=== PATIENT | female | born 1995 | race African-American/Black ===

== ENCOUNTER 2020-04-13 12:10 | Outpatient (CLI) | payer MEDICAID, SELFPAY ==
[2020-04-13 12:27] VITALS: BP 135/77; PULSE 93; TEMP 37.1
[2020-04-13 12:37] VITALS: BMI 42.4
[2020-04-13 13:16] LABS: ROM Internal Control Test YES-OK TO RESULT pt. (Internal QC); ROM Patient Test Negative (Negative)
--- NOTE | 2020-04-13 13:34 | US_ITS ---
STUDY: SECOND AND THIRD TRIMESTER OBSTETRICAL ULTRASOUND - LIMITED REASON FOR EXAM: Female, 24 years old LLQ PAIN LMP: 09/22/2019. PRIOR ULTRASOUND: None. TECHNIQUE: Transabdominal TECHNICAL QUALITY: Adequate. FINDINGS: There is a single intrauterine fetus. The fetus is in a transverse lie with the head on the maternal right side. There is demonstrated cardiac activity with a heart rate of 142 bpm. There is a normal amniotic fluid volume. The largest amniotic fluid pocket measures 4.8 cm. The amniotic fluid index (JARED) is 11.9 cm. The placenta is fundal in location. There are Grade 1 placental changes. The cervix measures 5 cm in length. BIOMETRY: BPD: 7.4 cm: 29 weeks, 4 days HC: 27.4 cm: 30 weeks, 0 days AC: 24.9 cm: 29 weeks, 1 days FL: 6 cm: 31 weeks, 3 days Age by LMP: 29 weeks, 1 days. ERICA by LMP: 06/28/2020. age by current US: 30 weeks, 1 days. ERICA by current US: 06/21/2020. Estimated weight: 1487 grams, +/- 217 grams, 68 percentile. US/OB Limited With Biometrics IMPRESSION: Single live uterine gestation with a mean gestational age of 30 weeks and 1 day. Electronically Signed: Rogerio Fragoso, at 15:04 EST , Service support ,
[2020-04-13 13:59] LABS: Hematocrit 36.7 % (37-47); Hemoglobin 12.4 g/dL (12.0-15.0); Mean Corp Hgb Conc 33.8 g/dL (32-36); Mean Corpuscular Volume 79.8 fL (81-99); Mean Platelet Vol. 10.6 fl (6.2-12.0); Platelet Count 295 K/mm3 (150-450); RBC Distribution Width CV 13.6 % (11.6-14.6); RBC Distribution Width SD 38.7 fl (35.1-43.9); White Blood Count 10.2 K/mm3 (4.4-11.0)
[2020-04-13 14:02] LABS: Color, Urine Yellow (Yellow); Glucose, Dipstick Normal (Normal); Ketone-Dipstick Negative (Negative); Leukocyte Esterase-Dipstick 100 /ul (Negative); Nitrite-Dipstick Negative (Negative); Occult Blood-Urine Negative /ul (Negative); Protein-Dipstick Negative (Negative); Urine Bilirubin Dipstick Negative (Negative); Urine Clarity Clear (Clear); Urine Urobilinogen Normal (Normal)
[2020-04-13 14:11] LABS: Fibrinogen 577 mg/dl (203-444)
--- NOTE | 2020-04-15 20:17 | OB.TRI.PN_ITS ---
Progress Notes Date of Service: 04/13/20 Progress Note: Patient presents for triage evaluation secondary to vaginal discharge questionable ROM FHT: 130 Moderate variability reactive no decelerations category I tracing [place]: no regular Contractions Assessment and plan membranes intact threatened ptl Reactive NST, reassuring maternal and status patient discharged to home to follow-up with previous tobacco weigher office. See problem list details for additional plan information. Laboratory Studies: Laboratory Tests 04/13/20 04/13/20 04/13/20 Range/Units 13:45 13:40 13:40 WBC 10.2 (4.4-11.0) K/mm3 RBC 4.60 (4.2-5.4) M/mm3 Hgb 12.4 (12.0-15.0) g/dL Hct 36.7 L (37-47) % MCV 79.8 L (81-99) fL MCH 27.0 (27.0-32.0) pg MCHC 33.8 (32-36) g/dL RDW Std Deviation 38.7 (35.1-43.9) fl RDW Coeff of Ewa 13.6 (11.6-14.6) % Plt Count 295 (150-450) K/mm3 MPV 10.6 (6.2-12.0) fl Fibrinogen 577 H (203-444) mg/dl Urine Color Yellow (Yellow) Urine Clarity Clear (Clear) Urine pH 7.0 (5.0 - 8.0) Ur Specific [employer] 1.010 (1.002-1.030) Urine Protein Negative (Negative) mg/dl Urine Glucose (UA) Normal (Normal) mg/dl Urine Ketones Negative (Negative) mg/dl Urine Occult Blood Negative (Negative) /ul Urine Nitrite Negative (Negative) Urine Bilirubin Negative (Negative) mg/dL Urine Urobilinogen Normal (Normal) mg/dl Ur Leukocyte Esterase 100 H (Negative) /ul Vag Amniotic Fld Detect (Negative) 04/13/20 Range/Units 12:30 WBC (4.4-11.0) K/mm3 RBC (4.2-5.4) M/mm3 Hgb (12.0-15.0) g/dL Hct (37-47) % MCV (81-99) fL MCH (27.0-32.0) pg MCHC (32-36) g/dL RDW Std Deviation (35.1-43.9) fl RDW Coeff of Ewa (11.6-14.6) % Plt Count (150-450) K/mm3 MPV (6.2-12.0) fl Fibrinogen (203-444) mg/dl Urine Color (Yellow) Urine Clarity (Clear) Urine pH (5.0 - 8.0) Ur Specific [employer] (1.002-1.030) Urine Protein (Negative) mg/dl Urine Glucose (UA) (Normal) mg/dl Urine Ketones (Negative) mg/dl Urine Occult Blood (Negative) /ul Urine Nitrite (Negative) Urine Bilirubin (Negative) mg/dL Urine Urobilinogen (Normal) mg/dl Ur Leukocyte Esterase (Negative) /ul Vag Amniotic Fld Detect Negative (Negative) Multi Select Codes - Urinary/Genital Urinary/Genital CPT Codes: 20920-64 non-stress test Interp
== END 2020-04-13 15:50 | disposition home or self-care (01) ==
LOC: WPOUT 12:14 → WP 12:15
PROVIDERS: Referring Provider Obstetrics & Gynecology; Visit Provider Obstetrics & Gynecology
DX: O26.893 Other specified pregnancy related conditions, third trimester (principal); Z3A.00 Weeks of gestation of pregnancy not specified
CPT/HCPCS: 36415; 59025; 59050; 76816; 81002; 84112; 85027; 85384; 99218; G0378

== ENCOUNTER 2020-05-05 18:35 | Outpatient (CLI) | payer MEDICAID, SELFPAY ==
[2020-05-05 18:52] VITALS: PULSE 95; TEMP 37.5; O2SAT 96
[2020-05-05 18:53] VITALS: BP 114/55; PULSE 95
[2020-05-05 19:36] VITALS: BP 125/72; PULSE 86
[2020-05-05 19:37] VITALS: BP 130/65; PULSE 96
[2020-05-05 19:38] VITALS: BP 134/69; PULSE 97; TEMP 36.6; O2SAT 98
[2020-05-05 19:51] VITALS: BMI 42.7
[2020-05-05 19:57] LABS: Absolute Lymphocyte Count 2.56 X10^3/uL (0.83-4.51); Absolute Neutrophil Count 7.3 X10^3/uL (2.0-7.7); Basophil# 0.05 X10^3/uL; Basophil% 0.5 % (0-1); Eosinophil# 0.12 X10^3/uL; Eosinophils% 1.1 % (0-5); Hematocrit 35.2 % (37-47); Hemoglobin 11.3 g/dL (12.0-15.0); Lymphocyte # 2.56 X10^3/ul (4.0); Lymphocyte % 24.1 % (19-41); Mean Corp Hgb Conc 32.1 g/dL (32-36); Mean Corpuscular Hgb 25.7 pg (27.0-32.0); Mean Platelet Vol. 10.6 fl (6.2-12.0); Monocyte# 0.63 X10^3/uL; Monocyte% 5.9 % (0-10); NRBC Flagged by Analyzer 0 % (0-5); Neutrophil # 7.25 X10^3/uL (2.7-7.7); Neutrophil % 68.1 % (47-70); Platelet Count 295 K/mm3 (150-450); RBC Distribution Width CV 13.3 % (11.6-14.6); RBC Distribution Width SD 38.5 fl (35.1-43.9); White Blood Count 10.6 K/mm3 (4.4-11.0)
[2020-05-05 20:46] LABS: Bedside Glucose 102 mg/dL (70-110)
--- NOTE | 2020-05-07 13:21 | OB.TRI.PN_ITS ---
Progress Notes Date of Service: 05/06/20 Progress Note: Patient presents for triage evaluation secondary to abdominal pain. Pain started immediately after arriving home. Tried resting and taking tylenol. Cervix closed. Not litzy on the monitor. FHT: Moderate variability reactive no decelerations category I tracing [place]: No Contractions Assessment and plan: Reactive NST, reassuring maternal and status patient discharged to home to follow-up with her primary power regulator. Laboratory Studies: Laboratory Tests 05/05/20 05/05/20 Range/Units 19:50 19:30 WBC 10.6 (4.4-11.0) K/mm3 RBC 4.40 (4.2-5.4) M/mm3 Hgb 11.3 L (12.0-15.0) g/dL Hct 35.2 L (37-47) % MCV 80.0 L (81-99) fL MCH 25.7 L (27.0-32.0) pg MCHC 32.1 (32-36) g/dL RDW Std Deviation 38.5 (35.1-43.9) fl RDW Coeff of Ewa 13.3 (11.6-14.6) % Plt Count 295 (150-450) K/mm3 MPV 10.6 (6.2-12.0) fl Immature Gran % (Auto) 0.300 (0.0-0.9) % Neut % (Auto) 68.1 (47-70) % Lymph % (Auto) 24.1 (19-41) % [place] % (Auto) 5.9 (0-10) % Eos % (Auto) 1.1 (0-5) % Baso % (Auto) 0.5 (0-1) % Absolute Neuts (auto) 7.3 (2.0-7.7) X10^3/uL Absolute Lymphs (auto) 2.56 (0.83-4.51) X10^3/uL Nucleated RBC % 0 (0-5) % POC Glucose 102 (70-110) mg/dL Multi Select Codes - Urinary/Genital Urinary/Genital CPT Codes: 10545-44 non-stress test Interp
== END 2020-05-05 20:15 | disposition home or self-care (01) ==
LOC: WPOUT 18:39 → OBT 18:39
PROVIDERS: Visit Provider Obstetrics & Gynecology
DX: O26.899 Other specified pregnancy related conditions, unspecified trimester (principal); R10.9 Unspecified abdominal pain; Z3A.00 Weeks of gestation of pregnancy not specified
CPT/HCPCS: 36415; 59025; 59050; 82962; 85025; 99218; G0378

== ENCOUNTER 2020-05-06 02:42 | Outpatient (CLI) | payer MEDICAID, SELFPAY ==
[2020-05-05 19:51] VITALS: BMI 42.7
[2020-05-06 03:03] VITALS: BP 119/62; PULSE 92
[2020-05-06 03:04] VITALS: BMI 43.1
--- NOTE | 2020-05-07 13:18 | OB.TRI.PN_ITS ---
Progress Notes Date of Service: 05/05/20 Progress Note: Patient presents for triage evaluation secondary to dizziness. Orthostatic vitals negative. CBC normal. BGT normal. FHT: Moderate variability reactive no decelerations category I tracing [place]: No Contractions Assessment and plan: Reactive NST, reassuring maternal and status patient discharged to home to follow-up with her primary wood heel flap rubber next week. - Problem List (1) Dizzinesses Status: Acute Multi Select Codes - Urinary/Genital Urinary/Genital CPT Codes: 67341-38 non-stress test Interp
== END 2020-05-06 03:55 | disposition home or self-care (01) ==
LOC: WPOUT 02:49 → WP 02:49
PROVIDERS: Visit Provider Obstetrics & Gynecology
DX: O26.899 Other specified pregnancy related conditions, unspecified trimester (principal); R42 Dizziness and giddiness; Z3A.00 Weeks of gestation of pregnancy not specified
CPT/HCPCS: 59025; 59050; 99218; G0378

== ENCOUNTER 2020-05-14 02:25 | Outpatient (CLI) | payer MEDICAID, SELFPAY ==
[2020-05-14 03:00] VITALS: BP 121/67; PULSE 105; PULSE 114; TEMP 36.6; O2SAT 99
[2020-05-14 03:02] VITALS: BMI 43.9
[2020-05-14 03:33] LABS: Absolute Lymphocyte Count 2.79 X10^3/uL (0.83-4.51); Basophil# 0.04 X10^3/uL; Basophil% 0.4 % (0-1); Eosinophil# 0.09 X10^3/uL; Eosinophils% 0.9 % (0-5); Hematocrit 33.4 % (37-47); Lymphocyte # 2.79 X10^3/ul (4.0); Lymphocyte % 26.5 % (19-41); Mean Corp Hgb Conc 32.9 g/dL (32-36); Mean Corpuscular Hgb 25.9 pg (27.0-32.0); Mean Corpuscular Volume 78.6 fL (81-99); Mean Platelet Vol. 10.5 fl (6.2-12.0); Monocyte# 0.61 X10^3/uL; Monocyte% 5.8 % (0-10); NRBC Flagged by Analyzer 0 % (0-5); Neutrophil # 6.96 X10^3/uL (2.7-7.7); Neutrophil % 65.9 % (47-70); Platelet Count 287 K/mm3 (150-450); RBC Distribution Width CV 13.5 % (11.6-14.6); RBC Distribution Width SD 38.3 fl (35.1-43.9); Red Blood Count 4.25 M/mm3 (4.2-5.4); White Blood Count 10.5 K/mm3 (4.4-11.0)
[2020-05-14 03:34] LABS: Mucous, Urine 0 SEEN /hpf (<or=2+)
[2020-05-14 03:35] LABS: Color, Urine Yellow (Yellow); Glucose, Dipstick Normal (Normal); Ketone-Dipstick Negative (Negative); Leukocyte Esterase-Dipstick 100 /ul (Negative); Nitrite-Dipstick Negative (Negative); Occult Blood-Urine Negative /ul (Negative); Protein-Dipstick Negative (Negative); Urine Bilirubin Dipstick Negative (Negative); Urine Clarity Clear (Clear); Urine Urobilinogen Normal (Normal); Urine pH 6.5 (5.0 - 8.0)
[2020-05-14 03:41] LABS: Bacteria 1+ /hpf (None Seen); Red Blood Cells-Urine 0-5 SEEN /hpf (0-5); Squamous Epithelial Cells - UA 0-5 SEEN /hpf (5-10); White Blood Cells 10-25 SEEN /hpf (0-5)
[2020-05-14 03:46] LABS: Protein, Urine (Random) 13.7 mg/dL (<11.9); Protein:Creat Ratio 114 mg/g CRE (0-200)
[2020-05-14 03:50] LABS: ALB/GLOB Ratio 0.6 RATIO (0.9-2.4); AST(SGOT) 13 U/L (15-37); Alanine Aminotransfer ALT/SGPT 20 U/L (13-56); Albumin, Serum 2.4 g/dL (3.2-5.0); Alkaline Phosphatase 182 U/L (45-117); Anion Gap 9 (5-15); BUN 10 mg/dL (7-18); BUN/Creat Ratio 16.2 RATIO (10-20); Calcium,Total 8.6 mg/dL (8.5-10.1); Chloride 109 mmol/L (98-107); Creatinine, Serum 0.62 mg/dL (0.55-1.02); EST Glomerular Filtration Rate 123 mL/min (>60); Est Glom Filt Rate - Afr Amer 149 mL/min (>60); Estimated Creatinine Clearance 123.73 ml/min; Globulin 4.1 g/dL (2.2-4.2); Glucose 99 mg/dL (74-106); LDH 145 U/L (84-246); Potassium 3.6 mmol/L (3.5-5.1); Protein, Total 6.5 g/dL (6.4-8.2); Sodium Level 139 mmol/L (136-145)
[2020-05-14 03:57] VITALS: BP 117/58; PULSE 95
--- NOTE | 2020-05-14 20:04 | OB.TRI.NOTE ---
History of Present Illness Date of Service: 05/14/20 Was patient seen by the physician?: No Reason For Visit: RULE OUT HYPERTENSION Date of Service: 05/14/20 Final ERICA: 06/28/20 Final ERICA Source: US <20 weeks Gestational age: 33 Weeks and 4 Days History of Present Illness: Patient arrives elevated blood pressures at home Allergies acetaminophen [From Vicodin] Adverse Reaction (Verified 05/14/20 03:01) Rash hydrocodone [From Vicodin] Adverse Reaction (Verified 05/14/20 03:01) Rash Laboratory Studies: Laboratory Tests 05/14/20 05/14/20 05/14/20 Range/Units 03:20 03:20 03:20 WBC (4.4-11.0) K/mm3 RBC (4.2-5.4) M/mm3 Hgb (12.0-15.0) g/dL Hct (37-47) % MCV (81-99) fL MCH (27.0-32.0) pg MCHC (32-36) g/dL RDW Std Deviation (35.1-43.9) fl RDW Coeff of Ewa (11.6-14.6) % Plt Count (150-450) K/mm3 MPV (6.2-12.0) fl Immature Gran % (Auto) (0.0-0.9) % Neut % (Auto) (47-70) % Lymph % (Auto) (19-41) % [place] % (Auto) (0-10) % Eos % (Auto) (0-5) % Baso % (Auto) (0-1) % Absolute Neuts (auto) (2.0-7.7) X10^3/uL Absolute Lymphs (auto) (0.83-4.51) X10^3/uL Nucleated RBC % (0-5) % Sodium 139 (136-145) mmol/L Potassium 3.6 (3.5-5.1) mmol/L Chloride 109 H (98-107) mmol/L Carbon Dioxide 21.0 (21.0-32.0) mmol/L Anion Gap 9 (5-15) BUN 10 (7-18) mg/dL Creatinine 0.62 (0.55-1.02) mg/dL Estim Creat Clear Calc 123.73 ml/min Est GFR (MDRD) Af Amer 149 (>60) mL/min Est GFR (MDRD) Non-Af 123 (>60) mL/min BUN/Creatinine Ratio 16.2 (10-20) RATIO Glucose 99 (74-106) mg/dL Calcium 8.6 (8.5-10.1) mg/dL Total Bilirubin 0.20 (0.20-1.00) mg/dL AST 13 L (15-37) U/L ALT 20 (13-56) U/L Alkaline Phosphatase 182 H (45-117) U/L Lactate Dehydrogenase 145 (84-246) U/L Total Protein 6.5 (6.4-8.2) g/dL Albumin 2.4 L (3.2-5.0) g/dL Globulin 4.1 (2.2-4.2) g/dL Albumin/Globulin Ratio 0.6 L (0.9-2.4) RATIO Urine Color Yellow (Yellow) Urine Clarity Clear (Clear) Urine pH 6.5 (5.0 - 8.0) Ur Specific [place] 1.020 (1.002-1.030) Urine Protein Negative (Negative) mg/dl Urine Glucose (UA) Normal (Normal) mg/dl Urine Ketones Negative (Negative) mg/dl Urine Occult Blood Negative (Negative) /ul Urine Nitrite Negative (Negative) Urine Bilirubin Negative (Negative) mg/dL Urine Urobilinogen Normal (Normal) mg/dl Ur Leukocyte Esterase 100 H (Negative) /ul Urine RBC 0-5 SEEN (0-5) /hpf Urine WBC 10-25 SEEN (0-5) /hpf Ur Squamous Epith Cells 0-5 SEEN (5-10) /hpf Urine Bacteria 1+ (None Seen) /hpf Urine Mucus 0 SEEN (<or=2+) /hpf U Random Total Protein 13.7 H (<11.9) mg/dL Urine Creatinine 120.00 (NO RANGE EST.) mg/dL Protein/Creatinin Ratio 114 (0-200) mg/g CRE 05/14/20 Range/Units 03:20 WBC 10.5 (4.4-11.0) K/mm3 RBC 4.25 (4.2-5.4) M/mm3 Hgb 11.0 L (12.0-15.0) g/dL Hct 33.4 L (37-47) % MCV 78.6 L (81-99) fL MCH 25.9 L (27.0-32.0) pg MCHC 32.9 (32-36) g/dL RDW Std Deviation 38.3 (35.1-43.9) fl RDW Coeff of Ewa 13.5 (11.6-14.6) % Plt Count 287 (150-450) K/mm3 MPV 10.5 (6.2-12.0) fl Immature Gran % (Auto) 0.500 (0.0-0.9) % Neut % (Auto) 65.9 (47-70) % Lymph % (Auto) 26.5 (19-41) % [place] % (Auto) 5.8 (0-10) % Eos % (Auto) 0.9 (0-5) % Baso % (Auto) 0.4 (0-1) % Absolute Neuts (auto) 7.0 (2.0-7.7) X10^3/uL Absolute Lymphs (auto) 2.79 (0.83-4.51) X10^3/uL Nucleated RBC % 0 (0-5) % Sodium (136-145) mmol/L Potassium (3.5-5.1) mmol/L Chloride (98-107) mmol/L Carbon Dioxide (21.0-32.0) mmol/L Anion Gap (5-15) BUN (7-18) mg/dL Creatinine (0.55-1.02) mg/dL Estim Creat Clear Calc ml/min Est GFR (MDRD) Af Amer (>60) mL/min Est GFR (MDRD) Non-Af (>60) mL/min BUN/Creatinine Ratio (10-20) RATIO Glucose (74-106) mg/dL Calcium (8.5-10.1) mg/dL Total Bilirubin (0.20-1.00) mg/dL AST (15-37) U/L ALT (13-56) U/L Alkaline Phosphatase (45-117) U/L Lactate Dehydrogenase (84-246) U/L Total Protein (6.4-8.2) g/dL Albumin (3.2-5.0) g/dL Globulin (2.2-4.2) g/dL Albumin/Globulin Ratio (0.9-2.4) RATIO Urine Color (Yellow) Urine Clarity (Clear) Urine pH (5.0 - 8.0) Ur Specific [place] (1.002-1.030) Urine Protein (Negative) mg/dl Urine Glucose (UA) (Normal) mg/dl Urine Ketones (Negative) mg/dl Urine Occult Blood (Negative) /ul Urine Nitrite (Negative) Urine Bilirubin (Negative) mg/dL Urine Urobilinogen (Normal) mg/dl Ur Leukocyte Esterase (Negative) /ul Urine RBC (0-5) /hpf Urine WBC (0-5) /hpf Ur Squamous Epith Cells (5-10) /hpf Urine Bacteria (None Seen) /hpf Urine Mucus (<or=2+) /hpf U Random Total Protein (<11.9) mg/dL Urine Creatinine (NO RANGE EST.) mg/dL Protein/Creatinin Ratio (0-200) mg/g CRE Physical Exam Vitals: Vital Signs Temp Pulse BP Pulse Ox 97.9 F 95 117/58 L 99 05/14/20 03:00 05/14/20 03:57 05/14/20 03:57 05/14/20 03:00 NST - FHR Rate Baby A Baseline: 130 Variability:: Moderate Accelerations:: 15 x 15 Decelerations:: None NST Reactive:: Yes Uterine Activity:: quiet Impression/Plan 24-year-old at 33 weeks and 4 days with normal blood pressures here in triage. HELLP labs negative. All reassuring. For follow-up appointment today in the office.
== END 2020-05-14 04:15 | disposition home or self-care (01) ==
PROVIDERS: Visit Provider Obstetrics & Gynecology
DX: O26.893 Other specified pregnancy related conditions, third trimester (principal); Z3A.33 33 weeks gestation of pregnancy
CPT/HCPCS: 36415; 59025; 59050; 80053; 81001; 82570; 83615; 84156; 85025; 86703; 86762; 86803; 87086; 87088; 87340; 99218; G0378

== ENCOUNTER → 2020-05-14 16:26 | Outpatient (CLI) | payer MEDICAID, SELFPAY ==
[2020-05-14 03:02] VITALS: BMI 43.9
[2020-05-15 09:20] LABS: HIV - WCH Non-Reactive (Nonreactive); Hepatitis B Surface Antigen Non-Reactive (Nonreactive); Hepatitis C Antibody Non-Reactive (Nonreactive); Rubella IgG Reactive (Nonreactive)
[2020-05-17 01:42] LABS: Prenatal RPR NONREACTIVE (NONREACTIVE)
== END ==
PROVIDERS: Visit Provider Obstetrics & Gynecology
DX: Z34.83 Encounter for supervision of other normal pregnancy, third trimester (principal)
CPT/HCPCS: 36415; 59025; 59050; 80053; 81001; 82570; 83615; 84156; 85025; 86703; 86762; 86803; 87086; 87340; 99218; G0378

== ENCOUNTER 2020-05-31 03:43 | Outpatient (CLI) | payer MEDICAID, SELFPAY ==
[2020-05-31 04:06] VITALS: TEMP 37.1; O2SAT 98
[2020-05-31 04:07] VITALS: BP 131/67; TEMP 37.1; TEMP 37.6
[2020-05-31 04:08] VITALS: PULSE 93; O2SAT 94
[2020-05-31 04:23] VITALS: BMI 44.2
--- NOTE | 2020-06-02 10:07 | OB.TRI.NOTE ---
History of Present Illness Was patient seen by the physician?: No Reason For Visit: RULE OUT LABOR Date of Service: 05/31/20 Final ERICA: 06/28/20 Final ERICA Source: US <20 weeks Gestational age: 36 Weeks and 0 Days History of Present Illness: 36-week intrauterine presents with some contractions and think she might be in labor. Allergies acetaminophen [From Vicodin] Adverse Reaction (Verified 05/14/20 03:01) Rash hydrocodone [From Vicodin] Adverse Reaction (Verified 05/14/20 03:01) Rash Physical Exam Vitals: Vital Signs Temp Pulse BP Pulse Ox 98.8 F 93 131/67 H 94 05/31/20 04:07 05/31/20 04:08 05/31/20 04:07 05/31/20 04:08 NST - FHR Rate Baby A NST Reactive:: Yes FHR Category:: Category I Impression/Plan 36-week intrauterine with false labor. No cervical change after monitoring. Reactive nonstress test. Will discharge to home with routine instructions.
== END 2020-05-31 05:10 | disposition home or self-care (01) ==
LOC: WPOUT 03:49 → WP 03:49
PROVIDERS: Visit Provider Obstetrics & Gynecology
DX: O47.03 False labor before 37 completed weeks of gestation, third trimester (principal); Z3A.36 36 weeks gestation of pregnancy
CPT/HCPCS: 59025; 59050; 99218; G0378

== ENCOUNTER → 2020-06-06 10:22 | Outpatient (CLI) | payer MEDICAID, SELFPAY ==
[2020-05-31 04:23] VITALS: BMI 44.2
== END ==
PROVIDERS: Visit Provider Student in an Organized Health Care Education/Training Program
DX: Z36.85 Encounter for antenatal screening for Streptococcus B (principal)
CPT/HCPCS: 87081

== ENCOUNTER → 2020-06-15 15:39 | Outpatient (CLI) | payer MEDICAID, SELFPAY ==
[2020-05-31 04:23] VITALS: BMI 44.2
== END ==
PROVIDERS: Referring Provider Student in an Organized Health Care Education/Training Program; Visit Provider Student in an Organized Health Care Education/Training Program
DX: Z03.818 Encounter for observation for suspected exposure to other biological agents ruled out (principal)
CPT/HCPCS: 87635; C9803; U0002

== ENCOUNTER 2020-06-16 23:45 | Outpatient (CLI) | payer MEDICAID, SELFPAY ==
[2020-06-16 23:55] VITALS: BMI 44.7
[2020-06-17 00:03] VITALS: BP 116/56; PULSE 90; TEMP 37.1; O2SAT 97
[2020-06-17 00:22] LABS: Bacteria 0 SEEN /hpf (None Seen); Mucous, Urine 0 SEEN /hpf (<or=2+); Red Blood Cells-Urine 0 SEEN /hpf (0-5)
[2020-06-17 00:29] LABS: Color, Urine Yellow (Yellow); Glucose, Dipstick Normal (Normal); Ketone-Dipstick Negative (Negative); Leukocyte Esterase-Dipstick 25 /ul (Negative); Nitrite-Dipstick Negative (Negative); Occult Blood-Urine Negative /ul (Negative); Protein-Dipstick 15 mg/dl (Negative); Urine Bilirubin Dipstick Negative (Negative); Urine Clarity Clear (Clear); Urine Urobilinogen 1 mg/dl (Normal); Urine pH 6.5 (5.0 - 8.0)
[2020-06-17 00:35] LABS: Squamous Epithelial Cells - UA 0-5 SEEN /hpf (5-10); White Blood Cells 0-5 SEEN /hpf (0-5)
[2020-06-17 00:36] VITALS: BP 111/75; PULSE 91
[2020-06-17 00:50] VITALS: BP 115/65; PULSE 97
[2020-06-17 00:53] LABS: Absolute Lymphocyte Count 2.66 X10^3/uL (0.83-4.51); Absolute Neutrophil Count 6.5 X10^3/uL (2.0-7.7); Basophil# 0.05 X10^3/uL; Basophil% 0.5 % (0-1); Eosinophil# 0.09 X10^3/uL; Eosinophils% 0.9 % (0-5); Hematocrit 33.9 % (37-47); Hemoglobin 10.6 g/dL (12.0-15.0); Lymphocyte # 2.66 X10^3/ul (4.0); Lymphocyte % 26.8 % (19-41); Mean Corp Hgb Conc 31.3 g/dL (32-36); Mean Corpuscular Hgb 23.9 pg (27.0-32.0); Mean Corpuscular Volume 76.4 fL (81-99); Mean Platelet Vol. 10.7 fl (6.2-12.0); Monocyte# 0.55 X10^3/uL; Monocyte% 5.5 % (0-10); NRBC Flagged by Analyzer 0 % (0-5); Neutrophil # 6.54 X10^3/uL (2.7-7.7); Platelet Count 281 K/mm3 (150-450); RBC Distribution Width SD 38.4 fl (35.1-43.9); Red Blood Count 4.44 M/mm3 (4.2-5.4); White Blood Count 9.9 K/mm3 (4.4-11.0)
[2020-06-17 00:54] LABS: Protein, Urine (Random) 16.4 mg/dL (<11.9); Protein:Creat Ratio 90 mg/g CRE (0-200)
[2020-06-17 01:07] VITALS: BP 121/74; PULSE 102
[2020-06-17 01:09] LABS: ALB/GLOB Ratio 0.6 RATIO (0.9-2.4); AST(SGOT) 16 U/L (15-37); Alanine Aminotransfer ALT/SGPT 23 U/L (13-56); Albumin, Serum 2.5 g/dL (3.2-5.0); Alkaline Phosphatase 275 U/L (45-117); Anion Gap 8 (5-15); BUN 7 mg/dL (7-18); BUN/Creat Ratio 11.1 RATIO (10-20); Calcium,Total 8.6 mg/dL (8.5-10.1); Chloride 110 mmol/L (98-107); Creatinine, Serum 0.63 mg/dL (0.55-1.02); EST Glomerular Filtration Rate 121 mL/min (>60); Est Glom Filt Rate - Afr Amer 146 mL/min (>60); Estimated Creatinine Clearance 121.77 ml/min; Globulin 4.4 g/dL (2.2-4.2); Glucose 108 mg/dL (74-106); Potassium 3.5 mmol/L (3.5-5.1); Protein, Total 6.9 g/dL (6.4-8.2); Sodium Level 139 mmol/L (136-145)
--- NOTE | 2020-06-17 10:44 | PN_ITS ---
Progress Note Triage Note: 24 yo at 38/3w presenting with intermittent spots in vision and cramping. Reports that she has had intermittent spotted vision for several weeks, feels like it has gotten more frequent. Reports cramping. BPs were normal. CE per RN 3 cm x2, unchanged, not in labor. HELLP labs sent - within normal limits. status reassuring. 135/mod ewa/+accel/no decel, toco irregular ctx. Patient felt better prior to discharge. Discharge home with labor and pre-eclampsia precautions. Vision changes likely secondary to lens changes in , monitor symptoms at home. Tylenol/benadryl/pepcid PRN for abdominal pain and cramping. Follow up in office this week. Vital Signs - 24 hr 06/17/20 00:03 06/17/20 00:36 06/17/20 00:50 Temperature 98.8 F Pulse Rate 90 91 97 Blood Pressure 116/56 L 111/75 115/65 Pulse Ox 97 06/17/20 01:07 Temperature Pulse Rate 102 H Blood Pressure 121/74 H Pulse Ox Laboratory Results - last 24 hr 06/16/20 06/17/20 06/17/20 00:15 00:15 00:47 WBC 9.9 RBC 4.44 Hgb 10.6 L Hct 33.9 L MCV 76.4 L MCH 23.9 L MCHC 31.3 L RDW Std Deviation 38.4 RDW Coeff of Ewa 14.0 Plt Count 281 MPV 10.7 Immature Gran % (Auto) 0.300 Neut % (Auto) 66.0 Lymph % (Auto) 26.8 [place] % (Auto) 5.5 Eos % (Auto) 0.9 Baso % (Auto) 0.5 Absolute Neuts (auto) 6.5 Absolute Lymphs (auto) 2.66 Nucleated RBC % 0 Sodium Albumin/Globulin Ratio Urine Color Yellow Urine Clarity Clear Urine pH 6.5 Ur Specific [place] 1.020 Urine Protein 15 H Urine Glucose (UA) Normal Urine Ketones Negative Urine Occult Blood Negative Urine Nitrite Negative Urine Bilirubin Negative Urine Urobilinogen 1 H Ur Leukocyte Esterase 25 H Urine RBC 0 SEEN Urine WBC 0-5 SEEN Ur Squamous Epith Cells 0-5 SEEN Urine Bacteria 0 SEEN Urine Mucus 0 SEEN U Random Total Protein 16.4 H Urine Creatinine 182.00 Protein/Creatinin Ratio 90 06/17/20 00:47 WBC RBC Hgb Hct MCV MCH MCHC RDW Std Deviation RDW Coeff of Ewa Plt Count MPV Immature Gran % (Auto) Neut % (Auto) Lymph % (Auto) [place] % (Auto) Eos % (Auto) Baso % (Auto) Absolute Neuts (auto) Absolute Lymphs (auto) Nucleated RBC % Sodium 139 Potassium 3.5 Chloride 110 H Carbon Dioxide 21.0 Anion Gap 8 BUN 7 Creatinine 0.63 Estim Creat Clear Calc 121.77 Est GFR (MDRD) Af Amer 146 Est GFR (MDRD) Non-Af 121 BUN/Creatinine Ratio 11.1 Glucose 108 H Calcium 8.6 Total Bilirubin 0.30 AST 16 ALT 23 Alkaline Phosphatase 275 H Total Protein 6.9 Albumin 2.5 L Globulin 4.4 H Albumin/Globulin Ratio 0.6 L Urine Color Urine Clarity Urine pH Ur Specific [place] Urine Protein Urine Glucose (UA) Urine Ketones Urine Occult Blood Urine Nitrite Urine Bilirubin Urine Urobilinogen Ur Leukocyte Esterase Urine RBC Urine WBC Ur Squamous Epith Cells Urine Bacteria Urine Mucus U Random Total Protein Urine Creatinine Protein/Creatinin Ratio
== END 2020-06-17 01:45 | disposition home or self-care (01) ==
LOC: WPOUT 23:53 → OBT 23:53
PROVIDERS: Visit Provider Student in an Organized Health Care Education/Training Program
DX: O26.893 Other specified pregnancy related conditions, third trimester (principal); Z3A.38 38 weeks gestation of pregnancy
CPT/HCPCS: 36415; 59025; 59050; 80053; 81001; 82570; 84156; 85025; 99218; G0378

== ENCOUNTER 2020-06-21 16:55 | Inpatient (IN) | payer MEDICAID, SELFPAY ==
[2020-06-21] VITALS (14 sets, daily range): BP systolic 97–148; BP diastolic 51–78; PULSE 83–186; TEMP 36.8–37.4; O2SAT 82–100; BMI 44.7
[2020-06-21] MEDS: Lactated Ringers 1,000 ML 50 ML IV (17:20)
[2020-06-21 17:50] LABS: Absolute Lymphocyte Count 2.29 X10^3/uL (0.83-4.51); Absolute Neutrophil Count 5.6 X10^3/uL (2.0-7.7); Basophil# 0.02 X10^3/uL; Basophil% 0.2 % (0-1); Eosinophil# 0.06 X10^3/uL; Eosinophils% 0.7 % (0-5); Hematocrit 34.4 % (37-47); Hemoglobin 11.2 g/dL (12.0-15.0); Lymphocyte # 2.29 X10^3/ul (4.0); Lymphocyte % 26.8 % (19-41); Mean Corp Hgb Conc 32.6 g/dL (32-36); Mean Corpuscular Hgb 24.3 pg (27.0-32.0); Mean Corpuscular Volume 74.6 fL (81-99); Mean Platelet Vol. 10.6 fl (6.2-12.0); Monocyte# 0.54 X10^3/uL; Monocyte% 6.3 % (0-10); NRBC Flagged by Analyzer 0 % (0-5); Neutrophil % 65.6 % (47-70); Platelet Count 326 K/mm3 (150-450); RBC Distribution Width CV 14.2 % (11.6-14.6); RBC Distribution Width SD 37.6 fl (35.1-43.9); Red Blood Count 4.61 M/mm3 (4.2-5.4); White Blood Count 8.5 K/mm3 (4.4-11.0)
[2020-06-21 17:51] LABS: POSITIVE COUNT NO; POSITIVE DIFFERENTIAL NO; POSITIVE MORPHOLOGY NO
[2020-06-21] MEDS: Oxytocin 30 units/NS 500 ml 30 UNITS/500 ML IV.SOLN IV (18:15)
[2020-06-21 18:35] LABS: ALB/GLOB Ratio 0.6 RATIO (0.9-2.4); AST(SGOT) 16 U/L (15-37); Alanine Aminotransfer ALT/SGPT 23 U/L (13-56); Albumin, Serum 2.5 g/dL (3.2-5.0); Alkaline Phosphatase 284 U/L (45-117); Anion Gap 8 (5-15); BUN 7 mg/dL (7-18); BUN/Creat Ratio 13.3 RATIO (10-20); Calcium,Total 8.6 mg/dL (8.5-10.1); Chloride 109 mmol/L (98-107); Creatinine, Serum 0.53 mg/dL (0.55-1.02); EST Glomerular Filtration Rate 148 mL/min (>60); Est Glom Filt Rate - Afr Amer 179 mL/min (>60); Estimated Creatinine Clearance 144.74 ml/min; Globulin 4.3 g/dL (2.2-4.2); Glucose 78 mg/dL (74-106); LDH 167 U/L (84-246); Potassium 3.7 mmol/L (3.5-5.1); Protein, Total 6.8 g/dL (6.4-8.2); Sodium Level 138 mmol/L (136-145)
--- NOTE | 2020-06-21 18:38 | PCM.HPOB.BLA ---
History and Physical Chief complaint: Induction of labor at term History of present illness: 24-year-old G3, P2 at 39 weeks with ERICA: 06/28/2020 by LMP arrives for induction of labor at term. Patient denies headache, visual changes, nausea vomiting, chest pain, shortness of breath, right upper quadrant pain. Patient states good movement. Obstetric history: G1: 40-week male 12/05/2011 G2: 39-week male 10/10/2013 G3: Current Past medical history: History of anxiety depression Medications: vitamin Past surgical history: Pyogenic granuloma removed this Social history: Denies smoking, alcohol use, drug use Family history: Denies history DVT or PE Review of systems: Besides the above pertinent positives a full review of systems was performed and found to be negative Physical exam: Vital Signs Temp Pulse BP Pulse Ox 06/21/20 18:08 91 97/51 L 06/21/20 17:55 90 127/73 H 06/21/20 17:29 99 148/73 H 06/21/20 17:22 99.3 F H 95 144/78 H 99 06/21/20 17:19 97 144/78 H General: Normal-appearing no acute distress HEENT: Normocephalic atraumatic no cervical lymphadenopathy Cardiac/respiratory: Nonlabored breathing, no use of accessory muscles Abdomen: Soft, nontender, gravid Pelvic exam: 3/50/-3, AROM clear fluid Bedside ultrasound: Cephalic Extremities: No peripheral edema normal peripheral pulses Psych: Normal affect normal demeanor nonpressured speech Mom's Labs & Results 06/21/20 06/21/20 06/21/20 17:20 17:20 17:20 WBC 8.5 RBC 4.61 Hgb 11.2 L Hct 34.4 L MCV 74.6 L MCH 24.3 L MCHC 32.6 RDW Std Deviation 37.6 RDW Coeff of Ewa 14.2 Plt Count 326 MPV 10.6 Immature Gran % (Auto) 0.400 Neut % (Auto) 65.6 Lymph % (Auto) 26.8 [place] % (Auto) 6.3 Eos % (Auto) 0.7 Baso % (Auto) 0.2 Absolute Neuts (auto) 5.6 Absolute Lymphs (auto) 2.29 Nucleated RBC % 0 Sodium 138 Potassium 3.7 Chloride 109 H Carbon Dioxide 21.0 Anion Gap 8 BUN 7 Creatinine 0.53 L Estim Creat Clear Calc 144.74 Est GFR (MDRD) Af Amer 179 Est GFR (MDRD) Non-Af 148 BUN/Creatinine Ratio 13.3 Glucose 78 Calcium 8.6 Total Bilirubin 0.20 AST 16 ALT 23 Alkaline Phosphatase 284 H Lactate Dehydrogenase 167 Total Protein 6.8 Albumin 2.5 L Globulin 4.3 H Albumin/Globulin Ratio 0.6 L Blood Type Pending Antibody Screen Pending Labs Blood Type: O RH: POSITIVE RPR/VDRL/Syphilis Nonreactive Rubella status Immune HbSAg Negative Date Done: 06/03/20 Chlamydia Not Done Gonorrhea Not Done HIV/AIDS Non-Reactive Group B Strep: Negative Other Lab Procedures/Results/ to obtain chlamydia and gonorrhea Comments: Assessment plan 24-year-old G3, P2 at 39 weeks for induction of labor via Pitocin and AROM. AROM for clear fluid -Abdomen labor and delivery -CEFM -GBS negative -Pitocin induction -Initially with elevated blood pressures but asymptomatic, HELLP labs sent -Routine orders -Anesthesia to see
[2020-06-21] MEDS: Mag Hydrox/Al Hydrox/Simeth 30 ML UDC PO (20:32)
[2020-06-21 22:06] LABS: Chlamydia Trachomatis by PCR Negative (Negative); Neisserai gonorrhoeae by PCR Negative (Negative); Probe Check PASS; Sample Adequacy Control PASS; Specimen Processing Control PASS
[2020-06-21] MEDS: Lactated Ringers 500 ML 999 ML IV ×2 (22:20→23:46)
[2020-06-21] MEDS: fentaNYL-bupivacaine (epidural) 100 ML BAG EPIDURAL (23:37)
[2020-06-22] VITALS (33 sets, daily range): BP systolic 99–131; BP diastolic 50–69; PULSE 78–203; RESP 16–18; TEMP 36.7–37.8; O2SAT 81–100
--- NOTE | 2020-06-22 00:04 | PN.OBGYN_ITS ---
Subjective: Patient and OR on operating table other than anxious feels well. Has pain with contractions. - Physical Exam Vitals/I&O's: Vital Signs Temp Pulse BP Pulse Ox 98.3 F 112 H 136/62 H 97 06/21/20 22:18 06/21/20 22:18 06/21/20 22:18 06/21/20 22:17 Weight: 268 lb 15.423 oz Body Mass Index (BMI) 44.7 Intake and Output for Last 24 Hours 06/20/20 06/21/20 06/22/20 23:59 23:59 23:59 Intake Total 599.69 / 599.69 Output Total 490 / 490 Balance 109.69 / 109.69 General: Alert, Oriented x3, Cooperative HEENT: Atraumatic Oral: Moist Mucosa Neck: Supple Abdomen: Soft, Non Tender Extremities: No clubbing, No cyanosis Neurological: Neuro grossly intact Psych/Mental Status: Normal Affect, Appropriate, Alert and oriented to time, place, person, mood and affect Laboratory Results 06/21/20 17:20: WBC 8.5, RBC 4.61, Hgb 11.2 L, Hct 34.4 L, MCV 74.6 L, MCH 24.3 L, MCHC 32.6, RDW Std Deviation 37.6, RDW Coeff of Ewa 14.2, Plt Count 326, MPV 10.6, Immature Gran % (Auto) 0.400, Neut % (Auto) 65.6, Lymph % (Auto) 26.8, [place] % (Auto) 6.3, Eos % (Auto) 0.7, Baso % (Auto) 0.2, Absolute Neuts (auto) 5.6, Absolute Lymphs (auto) 2.29, Nucleated RBC % 0 06/21/20 17:20: Blood Type O POSITIVE, Antibody Screen NEGATIVE 06/21/20 17:20: Sodium 138, Potassium 3.7, Chloride 109 H, Carbon Dioxide 21.0, Anion Gap 8, BUN 7, Creatinine 0.53 L, Estim Creat Clear Calc 144.74, Est GFR (MDRD) Af Amer 179, Est GFR (MDRD) Non-Af 148, BUN/Creatinine Ratio 13.3, Glucose 78, Calcium 8.6, Total Bilirubin 0.20, AST 16, ALT 23, Alkaline Phosphatase 284 H, Lactate Dehydrogenase 167, Total Protein 6.8, Albumin 2.5 L, Globulin 4.3 H, Albumin/Globulin Ratio 0.6 L 06/21/20 18:40: Chlam trachomat DNA PCR Negative, N.gonorrhoeae DNA (PCR) Negative Current Medications Acetaminophen (Acetaminophen 500 Mg Tablet) 500 - 1,000 mg PO Q6H PRN PRN PRN Reason: Pain Score 1-3 Al Hydroxide/Mg Hydroxide (Mag Hydrox/Al Hydrox/Simeth 30 Ml Udc) 15 - 30 ml PO Q4H PRN PRN PRN Reason: INDIGESTION Last Admin: 06/21/20 20:32 Dose: 30 ml Documented by: Citric Acid/Sodium Citrate (Sodium Citrate/Citric Acid 30 Ml Udc) 30 ml PO X1 PRN PRN Reason: Section Ephedrine Sulfate (Ephedrine Sulfate 50 Mg/Ml Ampul) 10 mg IV Q10M PRN PRN Reason: hypotension Ephedrine Sulfate (Ephedrine Sulfate 50 Mg/Ml Ampul) 10 mg IM Q30M PRN PRN Reason: hypotension Fentanyl Citrate (Fentanyl 100 Mcg/2 Ml Ampul) 25 - 50 mcg IV Q2H PRN PRN PRN Reason: Pain Score 4-10 Fentanyl/Bupivacaine/Sodium Chlor (Fentanyl-Bupivacaine (Epidural) 100 Ml Bag) 0 ml EPIDURAL UD JAYLON; Protocol Lactated Ringer's () 500 mls @ 999 mls/hr IV .Q31M PRN PRN Reason: Epidural Last Admin: 06/21/20 22:20 Dose: 999 mls/hr Documented by: Lactated Ringer's () 500 mls @ 999 mls/hr IV .Q31M PRN PRN Reason: Corrective Measures Lactated Ringer's () 1,000 mls @ 50 mls/hr IV .Q20H JAYLON Last Infusion: 06/21/20 22:24 Dose: 0 mls/hr Documented by: Oxytocin/Sodium Chloride () 30 units in 500 mls @ 2 mls/hr IV .Q250H JAYLON Last Infusion: 06/21/20 20:33 Dose: 6 mls/hr Documented by: Nalbuphine HCl (Nalbuphine 10 Mg/Ml Ampul) 5 mg IV Q3H PRN PRN PRN Reason: ITCHING Naloxone HCl (Naloxone 0.4 Mg/Ml Syringe) 0.02 mg IV Q1M PRN PRN Reason: RR <10 and pt unresponsive Ondansetron HCl (Ondansetron 4 Mg/2 Ml Vial) 4 mg IV Q4H PRN PRN PRN Reason: NAUSEA Prochlorperazine Edisylate (Prochlorperazine 10 Mg/2 Ml Vial) 10 mg IV Q6H PRN PRN PRN Reason: NAUSEA Sodium Chloride (0.9% Saline Lock 10 Ml Syringe) 10 - 40 ml IV X1 PRN PRN Reason: SALINE FLUSH Medical Necessity - Tobacco Use Smoking Status: Never smoker Assessment/Plan All Active Problems Dizzinesses (Acute) Called by nursing with prolonged deceleration. Arrived to labor and delivery patient in OR, at that time heart tones 110/moderate variability/negative accelerations/negative decelerations. Reviewed tracing with nursing, prolonged deceleration 6 minutes on tracing, sukhi to the 50s for 2 minutes then tracing broken as patient was being rolled back to the operating room, repeat heart tones in the operating room 110 moderate variability. Reviewed results with patient who desires vaginal delivery. Nursing checked cervix during deceleration found to be 4 to 5 cm. Heart tones remained reassuring in OR, patient having painful contractions. Discussed with anesthesia for epidural in the operating room with continuous heart rate monitoring via scalp electrode and IUPC. Reviewed findings with patient's aunt and mother via FaceTime. Reviewed case and findings with in-house substation operator automatic. Epidural was placed, patient with improved comfort. I performed cervical exam found to be 4/50/-3. With heart tones now 130/moderate variability/negative accelerations/early decelerations now for greater than 20 minutes all reassuring. Okay to return to labor room. [place] every 4 minutes will monitor in room for 20 minutes and if reassuring heart tones will restart Pitocin. Reviewed plan with patient, confirm she desires vaginal delivery also is multi parous and good candidate for vaginal delivery.
[2020-06-22] MEDS: Lactated Ringers 1,000 ML 200 ML IV (01:58)
[2020-06-22] MEDS: fentaNYL-bupivacaine (epidural) 100 ML BAG EPIDURAL (03:51)
[2020-06-22] MEDS: Oxytocin 30 units/NS 500 ml 30 UNITS/500 ML IV.SOLN 334 UNITS IV (04:57)
[2020-06-22] MEDS: Methylergonovine 0.2 MG/ML Ampul IM (05:02)
--- NOTE | 2020-06-22 05:22 | PCM.OPRPT ---
Vaginal Delivery Date of Procedure: 06/22/20 Pre-Operative Diagnosis: Term Post-Operative Diagnosis: Term Surgery/ Procedure Performed: Spontaneous Vaginal Delivery Type of Anesthesia: Epidural Description of Procedure: Normal spontaneous vaginal delivery of a viable male infant, vertex DARLINE. Head and shoulders delivered with ease. Cord cut and clamped. Baby handed off to nursing. Placenta delivered via cord traction and fundal massage. No lacerations noted. Methergine 0.2 mg IM given. EBL 400 cc Apgars 8/8
--- NOTE | 2020-06-22 05:24 | DCINST_ITS ---
Discharge Diet: No Restrictions Discharge Activity: Return to Normal Activity, May Drive, May Shower May resume sexual activity in: 4-6 weeks Weight Bearing Status: Weight bearing as tolerated Call your doctor if your incision/area has: Continuous Slow Oozing, Foul Smelling Discharge Call your doctor if you observe: Fever of 101 or Higher, Shortness of breath, Chest pain Additional Instructions: If you experience any of the following, contact your healthcare provider. * Bleeding that soaks a pad every hour for 2 hours * Fever 100.4 or higher * Unrelieved incision or abdominal pain * Swelling, redness, discharge or bleeding from your incision or episiotomy site * Your incision begins to separate * Problems urinating (including inability to urinate or burning while urinating). * Visual changes * Severe headache * Flu-like symptoms * Pain or redness in one of both of your breasts * Pain, warmth, tenderness or swelling in your legs, especially the calf area * Frequent nausea and vomiting * Symptoms of depression or anxiety If you experience any of the following, call 911 or go to the nearest Emergency Room. * Chest pain * Problems breathing * Seizure activity * Partial or complete paralysis of a body part, slurred speech, weakness or drooping of the face, or a sudden inability to walk or hold your balance Allergies/Adverse Reactions: Allergies hydrocodone [From Vicodin] Adverse Reaction (Verified 06/21/20 17:06) Rash Medications to take at Discharge Pnv No.95/Ferrous Fum/Folic AC [ Caplet] 1 ea PO DAILY 04/13/20 Please Follow Up With: Parker Simon MD When: 4 to 6 weeks Primary Care Physician: Care Physician,No Primary [Primary Care Provider] - Test Results: Test results from this visit will be discussed in further detail at your follow- up appointment, if applicable.
--- NOTE | 2020-06-22 05:24 | PCM.DCVAG ---
Discharge Diet: No Restrictions Discharge Activity: Return to Normal Activity, May Drive, May Shower May resume sexual activity in: 4-6 weeks Weight Bearing Status: Weight bearing as tolerated Call your doctor if your incision/area has: Continuous Slow Oozing, Foul Smelling Discharge Call your doctor if you observe: Fever of 101 or Higher, Shortness of breath, Chest pain Additional Instructions: If you experience any of the following, contact your healthcare provider. Bleeding that soaks a pad every hour for 2 hours Fever 100.4 or higher Unrelieved incision or abdominal pain Swelling, redness, discharge or bleeding from your incision or episiotomy site Your incision begins to separate Problems urinating (including inability to urinate or burning while urinating). Visual changes Severe headache Flu-like symptoms Pain or redness in one of both of your breasts Pain, warmth, tenderness or swelling in your legs, especially the calf area Frequent nausea and vomiting Symptoms of depression or anxiety If you experience any of the following, call 911 or go to the nearest Emergency Room. Chest pain Problems breathing Seizure activity Partial or complete paralysis of a body part, slurred speech, weakness or drooping of the face, or a sudden inability to walk or hold your balance Allergies/Adverse Reactions: Allergies hydrocodone [From Vicodin] Adverse Reaction (Verified 06/21/20 17:06) Rash Medications to take at Discharge Pnv No.95/Ferrous Fum/Folic AC [ Caplet] 1 ea PO DAILY 04/13/20 Please Follow Up With: Parker Simon MD When: 4 to 6 weeks Primary Care Physician: Care Physician,No Primary [Primary Care Provider] - Test Results: Test results from this visit will be discussed in further detail at your follow-up appointment, if applicable.
[2020-06-22] MEDS: Ibuprofen 600 MG Tablet PO ×2 (06:56→20:26)
[2020-06-22] MEDS: Acetaminophen 500 MG Tablet 1000 MG PO (13:20)
[2020-06-23 02:52] VITALS: BP 102/39; PULSE 82; RESP 18; TEMP 36.7; O2SAT 97
[2020-06-23 08:35] VITALS: BP 120/59; PULSE 79; RESP 16; TEMP 36.4; O2SAT 99
[2020-06-23] MEDS: Senna/Docusate Sodium 1 Tablet PO (08:57)
--- NOTE | 2020-06-23 10:06 | PCM.PN.OB ---
Subjective: Patient without complaints. Breast-feeding going well but some issues with latching. Wants to stay until tomorrow. - Physical Exam Vitals/I&O's: Vital Signs Temp Pulse Resp BP Pulse Ox 97.5 F L 79 16 120/59 L 99 06/23/20 08:35 06/23/20 08:35 06/23/20 08:35 06/23/20 08:35 06/23/20 08:35 Oxygen Delivery Method Room Air Weight: 268 lb 15.423 oz Body Mass Index (BMI) 44.7 Intake and Output for Last 24 Hours 06/21/20 06/22/20 06/23/20 23:59 23:59 23:59 Intake Total 1296.82 / 1296.82 2430.64 / 2430.64 Output Total 490 / 490 800 / 800 Balance 806.82 / 806.82 1630.64 / 1630.64 Current Medications Acetaminophen (Acetaminophen 500 Mg Tablet) 1,000 mg PO Q8H PRN PRN PRN Reason: Pain Score 1-3 Last Admin: 06/22/20 13:20 Dose: 1,000 mg Documented by: Bisacodyl (Bisacodyl 10 Mg Suppository) 10 mg RC UD PRN PRN Reason: If no BM Dibucaine (Dibucaine 30 Gm Tube) 1 applic TOPICAL TID PRN PRN; Protocol PRN Reason: Discomfort Hydrocortisone (Hydrocortisone 2.5% Crm) 1 applic TOPICAL TID PRN PRN; Protocol PRN Reason: Discomfort Ibuprofen (Ibuprofen 600 Mg Tablet) 600 mg PO Q6H PRN PRN PRN Reason: Pain Score 1-3 Last Admin: 06/22/20 20:26 Dose: 600 mg Documented by: Ondansetron HCl (Ondansetron 4 Mg/2 Ml Vial) 4 mg IV Q4H PRN PRN PRN Reason: Nausea Senna/Docusate Sodium (Senna/Docusate Sodium 1 Tablet) 1 - 2 tablet PO DAILY PRN PRN PRN Reason: Constipation Last Admin: 06/23/20 08:57 Dose: 2 tablet Documented by: Simethicone (Simethicone 80 Mg Tablet) 80 mg PO PCHS PRN PRN Reason: Indigestion/Stomach pain Sodium Chloride (0.9% Saline Lock 10 Ml Syringe) 5 - 15 ml IV UD PRN PRN Reason: SALINE FLUSH Medical Necessity - Tobacco Use Smoking Status: Never smoker Assessment/Plan All Active Problems Dizzinesses (Acute) Doing well day #1 status post routine spontaneous vaginal delivery. Continuing present care.
[2020-06-23] MEDS: Ibuprofen 600 MG Tablet PO ×2 (12:30→19:57)
[2020-06-23 14:00] VITALS: BP 125/69; PULSE 87; RESP 16; TEMP 36.8
--- NOTE | 2020-06-23 16:15 | CASEMGMT ---
Social Work Brief Assessment Labor and Delivery Unit Refer documentation below for further details. Date of Referral/Notification: 06/22/20 Time of Referral: 06:47 Reason for Referral: History of anxiety and depression Date of Intervention: 06/23/20 Time of Intervention: 14:15 Informant: Medical record and mother of baby (MOB) Assessment: Met with MOB in room. Introduced role and reason for referral. MOB open to speaking with this worker. MOB reports baby boy, Peng Barr is her 3rd child. MOB has a 8 and 6 year old at home. MOB reports good support from family and friends and states father of baby is not involved. MOB states has all needs met for baby including diapers, wipes, crib, car seat, clothes, etc. MOB openly discussed history of depression and anxiety. MOB reports was never treated with medication and completed counseling through her christianity when needed. MOB denies any needs upon discharge. Educational information on Post- Depression provided. Nurse updated on this worker?s assessment. Nurse, Gege denies any concerns and anticipates discharge tomorrow morning. Plan: Home with resources provided No further needs requested or indicated. Darshana Billingsley, VP TRAINING, [employer]
[2020-06-23 20:00] VITALS: BP 106/73; PULSE 83; RESP 16; TEMP 36.7
[2020-06-24 02:43] VITALS: BP 107/68; PULSE 88; RESP 16; TEMP 36.7
[2020-06-24 08:45] VITALS: BP 119/71; PULSE 89; RESP 16; TEMP 36.6
--- NOTE | 2020-06-24 09:39 | PCM.PN.OB ---
Subjective: Patient without complaints. Breast-feeding going well. Ready to go home. - Physical Exam Vitals/I&O's: Vital Signs Temp Pulse Resp BP Pulse Ox 97.8 F 89 16 119/71 99 06/24/20 08:45 06/24/20 08:45 06/24/20 08:45 06/24/20 08:45 06/23/20 08:35 Oxygen Delivery Method Room Air Weight: 268 lb 15.423 oz Body Mass Index (BMI) 44.7 Intake and Output for Last 24 Hours 06/22/20 06/23/20 06/24/20 23:59 23:59 23:59 Intake Total 2430.64 / 2430.64 Output Total 800 / 800 Balance 1630.64 / 1630.64 Current Medications Acetaminophen (Acetaminophen 500 Mg Tablet) 1,000 mg PO Q8H PRN PRN PRN Reason: Pain Score 1-3 Last Admin: 06/22/20 13:20 Dose: 1,000 mg Documented by: Bisacodyl (Bisacodyl 10 Mg Suppository) 10 mg RC UD PRN PRN Reason: If no BM Last Admin: 06/23/20 12:40 Dose: 10 mg Documented by: Dibucaine (Dibucaine 30 Gm Tube) 1 applic TOPICAL TID PRN PRN; Protocol PRN Reason: Discomfort Hydrocortisone (Hydrocortisone 2.5% Crm) 1 applic TOPICAL TID PRN PRN; Protocol PRN Reason: Discomfort Ibuprofen (Ibuprofen 600 Mg Tablet) 600 mg PO Q6H PRN PRN PRN Reason: Pain Score 1-3 Last Admin: 06/23/20 19:57 Dose: 600 mg Documented by: Ondansetron HCl (Ondansetron 4 Mg/2 Ml Vial) 4 mg IV Q4H PRN PRN PRN Reason: Nausea Senna/Docusate Sodium (Senna/Docusate Sodium 1 Tablet) 1 - 2 tablet PO DAILY PRN PRN PRN Reason: Constipation Last Admin: 06/23/20 08:57 Dose: 2 tablet Documented by: Simethicone (Simethicone 80 Mg Tablet) 80 mg PO PCHS PRN PRN Reason: Indigestion/Stomach pain Sodium Chloride (0.9% Saline Lock 10 Ml Syringe) 5 - 15 ml IV UD PRN PRN Reason: SALINE FLUSH Medical Necessity - Tobacco Use Smoking Status: Never smoker Assessment/Plan All Active Problems Dizzinesses (Acute) Doing well day #2 status post routine spontaneous vaginal delivery. Will discharge to home with routine instructions.
--- NOTE | 2020-06-24 09:42 | PCM.DC.BLA ---
Discharge Summary Date of Admission: 06/21/20 Date of Discharge: 06/24/20 Summary: Admission diagnosis: Term intrauterine Discharge diagnosis: Term intrauterine Procedure: Continuous vaginal delivery HPI: Uneventful care. PE: Unremarkable. Hospital Course: The patient is a 24 year old who presented to L and D. She subsequently had a spontaneous vaginal delivery. she did well and it was felt that she was ready for discharge on was day #2. Homegoing Instruction: She was instructed not to drive for several days or if using narcotic pain medication, not to put anything in the vagina for 4 weeks, and to call the office for an appointment in 6 weeks. Discharge Medications: She was instructed to use Aleve or Motrin or Tylenol at home as needed for pain and stool softener for constipation. - Physical Exam Vitals/I&O's: Vital Signs Temp Pulse Resp BP Pulse Ox 97.8 F 89 16 119/71 99 06/24/20 08:45 06/24/20 08:45 06/24/20 08:45 06/24/20 08:45 06/23/20 08:35 Oxygen Delivery Method Room Air Weight: 268 lb 15.423 oz Body Mass Index (BMI) 44.7 Intake and Output for Last 24 Hours 06/22/20 06/23/20 06/24/20 23:59 23:59 23:59 Intake Total 2430.64 / 2430.64 Output Total 800 / 800 Balance 1630.64 / 1630.64 Current Medications Acetaminophen (Acetaminophen 500 Mg Tablet) 1,000 mg PO Q8H PRN PRN PRN Reason: Pain Score 1-3 Last Admin: 06/22/20 13:20 Dose: 1,000 mg Documented by: Bisacodyl (Bisacodyl 10 Mg Suppository) 10 mg RC UD PRN PRN Reason: If no BM Last Admin: 06/23/20 12:40 Dose: 10 mg Documented by: Dibucaine (Dibucaine 30 Gm Tube) 1 applic TOPICAL TID PRN PRN; Protocol PRN Reason: Discomfort Hydrocortisone (Hydrocortisone 2.5% Crm) 1 applic TOPICAL TID PRN PRN; Protocol PRN Reason: Discomfort Ibuprofen (Ibuprofen 600 Mg Tablet) 600 mg PO Q6H PRN PRN PRN Reason: Pain Score 1-3 Last Admin: 06/23/20 19:57 Dose: 600 mg Documented by: Ondansetron HCl (Ondansetron 4 Mg/2 Ml Vial) 4 mg IV Q4H PRN PRN PRN Reason: Nausea Senna/Docusate Sodium (Senna/Docusate Sodium 1 Tablet) 1 - 2 tablet PO DAILY PRN PRN PRN Reason: Constipation Last Admin: 06/23/20 08:57 Dose: 2 tablet Documented by: Simethicone (Simethicone 80 Mg Tablet) 80 mg PO PCHS PRN PRN Reason: Indigestion/Stomach pain Sodium Chloride (0.9% Saline Lock 10 Ml Syringe) 5 - 15 ml IV UD PRN PRN Reason: SALINE FLUSH
== END 2020-06-24 11:35 | disposition home or self-care (01) | DRG 560 ==
PROVIDERS: Admitting Provider Obstetrics & Gynecology; Visit Provider Obstetrics & Gynecology
DX: O76 Abnormality in fetal heart rate and rhythm complicating labor and delivery (principal); Z37.0 Single live birth; Z3A.39 39 weeks gestation of pregnancy
CPT/HCPCS: 59025; 59050; 76815; 80053; 83615; 85025; 86850; 86900; 86901; 87491; 87591; 94799; 99218; J7120; G0378

== ENCOUNTER → 2020-07-23 10:22 | Outpatient (CLI) | payer MEDICAID, SELFPAY ==
[2020-06-21 17:46] VITALS: BMI 44.7
[2020-07-23 12:58] LABS: Hematocrit 41.1 % (37-47); Hemoglobin 12.5 g/dL (12.0-15.0); Mean Corp Hgb Conc 30.4 g/dL (32-36); Mean Corpuscular Hgb 23.1 pg (27.0-32.0); Platelet Count 358 K/mm3 (150-450); RBC Distribution Width CV 15.5 % (11.6-14.6); Red Blood Count 5.41 M/mm3 (4.2-5.4); White Blood Count 7.5 K/mm3 (4.4-11.0)
[2020-07-23 13:15] LABS: ALB/GLOB Ratio 0.8 RATIO (0.9-2.4); AST(SGOT) 24 U/L (15-37); Alanine Aminotransfer ALT/SGPT 49 U/L (13-56); Albumin, Serum 3.4 g/dL (3.2-5.0); Alkaline Phosphatase 178 U/L (45-117); Anion Gap 7 (5-15); BUN 10 mg/dL (7-18); BUN/Creat Ratio 12.6 RATIO (10-20); Calcium,Total 9.2 mg/dL (8.5-10.1); Chloride 108 mmol/L (98-107); Creatinine, Serum 0.79 mg/dL (0.55-1.02); EST Glomerular Filtration Rate 93 mL/min (>60); Est Glom Filt Rate - Afr Amer 112 mL/min (>60); Globulin 4.4 g/dL (2.2-4.2); Glucose 93 mg/dL (74-106); LDH 168 U/L (84-246); Potassium 4.1 mmol/L (3.5-5.1); Protein, Total 7.8 g/dL (6.4-8.2); Sodium Level 139 mmol/L (136-145)
== END ==
PROVIDERS: Visit Provider Obstetrics & Gynecology
DX: R51.9 Headache, unspecified (principal)
CPT/HCPCS: 36415; 80053; 83615; 85027

== ENCOUNTER 2020-08-15 20:09 | Emergency (ER) | payer MEDICAID, SELFPAY ==
[2020-06-21 17:46] VITALS: BMI 44.7
[2020-08-15 20:09] VITALS: BP 147/81; PULSE 86; RESP 18; TEMP 36.4; O2SAT 98; BMI 39.9
--- NOTE | 2020-08-15 20:22 | EKG12_ITS ---
Test Reason : CP Blood Pressure : / mmHG Vent. Rate : 085 BPM Atrial Rate : 085 BPM P-R Int : 136 ms QRS Dur : 088 ms QT Int : 356 ms P-R-T Axes : 055 063 032 degrees QTc Int : 423 ms Normal sinus rhythm Normal ECG Confirmed by JANAK JAIMES, FRANCISCA ([id number]), video tape editor LILI SALINAS ([id number]) on 08/20/2020 2:22:23 PM Referred By: KRISTIAN JAIMES Confirmed By:FRANCISCA BRICENO MD
--- NOTE | 2020-08-15 20:48 | RAD_ITS ---
HISTORY: chest pain EXAMINATION/TECHNIQUE: XR Chest 1 View: Portable upright AP chest x-ray COMPARISON: None FINDINGS: LINES/DEVICES: None. LUNGS: No consolidation, edema or effusion. No pneumothorax. MEDIASTINUM AND CARDIOVASCULAR STRUCTURES: Cardiac silhouette not enlarged. Central airways and mediastinal contour are unremarkable. BONES AND SOFT TISSUES: No acute bony abnormalities. RAD/Chest 1 View (Portable) IMPRESSION: No radiographic evidence of acute cardiopulmonary disease. at 2100 Reported and signed by: Gavin Flores MD Electronically Signed: Gavin Flores MD at 20:58 EDT Tel , Service support ,
[2020-08-15 20:56] LABS: Hematocrit 43.4 % (37-47); Red Blood Count 5.82 M/mm3 (4.2-5.4); White Blood Count 9.4 K/mm3 (4.4-11.0)
[2020-08-15 20:57] LABS: Absolute Lymphocyte Count 3.89 X10^3/uL (0.83-4.51); Absolute Neutrophil Count 4.8 X10^3/uL (2.0-7.7); Basophil% 0.7 % (0-1); Eosinophils% 1.7 % (0-5); Lymphocyte # 3.89 X10^3/ul (0.83-4.51); Lymphocyte % 41.3 % (19-41); Mean Corpuscular Hgb 22.3 pg (27.0-32.0); Mean Corpuscular Volume 74.6 fL (81-99); Mean Platelet Vol. 9.9 fl (6.2-12.0); Monocyte# 0.46 X10^3/uL; Monocyte% 4.9 % (0-10); Neutrophil # 4.82 X10^3/uL (2.7-7.7); Neutrophil % 51.2 % (47-70); Platelet Count 330 K/mm3 (150-450); RBC Distribution Width CV 17.3 % (11.6-14.6)
[2020-08-15 20:58] LABS: BUN 14 mg/dL (7-18); Basophil# 0.07 X10^3/uL; Eosinophil# 0.16 X10^3/uL; Glucose 75 mg/dL (74-106)
[2020-08-15 20:59] LABS: Anion Gap 4 (5-15); BUN/Creat Ratio 16.7 RATIO (10-20); Calcium,Total 9.5 mg/dL (8.5-10.1); Chloride 106 mmol/L (98-107); Creatinine, Serum 0.84 mg/dL (0.55-1.02); EST Glomerular Filtration Rate 86 mL/min (>60); Est Glom Filt Rate - Afr Amer 104 mL/min (>60); Estimated Creatinine Clearance 90.52 ml/min; Potassium 3.5 mmol/L (3.5-5.1); Sodium Level 140 mmol/L (136-145)
[2020-08-15 21:14] VITALS: BP 148/85; PULSE 74; RESP 18; O2SAT 98
--- NOTE | 2020-08-15 21:14 | EDS_ITS ---
HPI History of Present Illness Chief Complaint: Chest Pain Narrative Narrative: 25-year-old female presenting with left-sided chest pain. She states it does hurt with deep inspiration. She also notes that radiates to her left shoulder. She has no known cardiac disease. She did recently deliver a baby about a month ago. She denies history of DVT/PE but she does complain of left calf pain. She states that she was seen by her PCP for the calf pain previously and she has been measuring them and they have stayed the same. Patient denies any shortness of breath. PFSH PFS Medical History (Updated 08/15/20 @ 20:40 by Vikki Jeronimo) PCOS (polycystic ovarian syndrome) no medical history Home Medications PNV cmb#95-ferrous fumarate-FA 1 ea PO DAILY 04/13/20 [History Last Taken 06/20/20 20:00] Allergy/AdvReac Type Severity Reaction Status Date / Time hydrocodone [From Vicodin] AdvReac Rash Verified 06/21/20 17:06 no significant family history no surgical history Social History Smoking Status: Never smoker ROS ROS ED Constitutional Constitutional ED: Denies chills, fever(s) or sweats Eyes Eyes: Denies blurry vision or change in vision ENT ENT ED: Denies ear pain, rhinorrhea or sore throat Cardiovascular Cardiovascular: Reports chest pain; Denies palpitations or racing heartbeat Respiratory/Chest Respiratory/Chest: Denies cough, dyspnea or sputum Gastrointestinal Gastrointestinal: Denies abdominal pain, constipation, diarrhea or vomiting Genitourinary Genitourinary ED: Denies dysuria, hematuria or urinary frequency Musculoskeletal Musculoskeletal: Denies arthralgias, myalgias or neck pain Integumentary Denies abscess, Abrasions or rash Neurologic Neurologic: Denies headache(s), paresthesias or weakness Psychiatric Psychiatric: Denies anxiety, depression, suicidal ideation or suicidal thoughts Endocrine Endocrinology: Denies polydipsia or polyuria EXAM Physical Exam Const Vital Signs: 08/15/20 20:09 08/15/20 20:38 08/15/20 21:14 Temperature 97.6 F L Temperature Source Temporal Pulse Rate 86 74 Respiratory Rate 18 18 Respiratory Effort Normal Respiratory Pattern Normal Blood Pressure 147/81 H 148/85 H Blood Pressure Mean 103 106 Pulse Ox 98 98 Oxygen Delivery Method Room Air Room Air 08/15/20 21:15 08/15/20 22:00 Temperature Temperature Source Pulse Rate 76 Respiratory Rate 18 Respiratory Effort Respiratory Pattern Blood Pressure 132/81 H 137/86 H Blood Pressure Mean 98 103 Pulse Ox 99 Oxygen Delivery Method Room Air General Appearance ED: Negative for pallor HEENT Reports normocephalic, head/scalp atraumatic and moist mucous membranes normocephalic Eyes PERRL and EOMs intact bilaterally Neck no lymphadenopathy and supple Chest Wall inspection of chest normal and palpation of chest normal Resp normal respiratory effort and clear to auscultation bilaterally Auscultation: Negative for rales, rhonchi or wheezes Cardio regular rate and regular rhythm GI normal to inspection, nondistended, normoactive bowel sounds and non-distended Auscultation: normoactive bowel sounds Palpation: soft Narrative: Deferred Back/Spine no CVA tenderness General Back: Negative for CVA tenderness Cervical Spine: Negative for cervical spine tenderness Extremity normal to inspection General Extremety ED: Yes edema and tenderness General Extremity: edema Neuro oriented x3 and CN's II-XII intact bilaterally Sensorium / Orientation: alert Motor Exam: strength 5/5 throughout Psych mental status grossly normal Attitude: No agitated Skin no rashes or lesions noted and no wounds General Skin Exam: Negative for jaundice or pallor Heart Score History: Slightly/Non-Suspicious ECG: Normal Age: </= 45 years Risk Factors: 1 or 2 Risk Factors Score: 1 MDM MDM MDM Narrative Medical decision making narrative: Patient presenting with left-sided chest pain. She states it is kind of sharp at times. She is not having any dyspnea. Her vital signs are stable she is afebrile. She had EKG performed on arrival which shows a sinus rhythm at 85 bpm without sign of ischemic change. Patient's lab work is all within normal limits. Patient had CTA of the chest given recent of her child and this is negative for PE or dissection, other acute findings. Patient's heart score is 1 for obesity however she has no other cardiac risk factors. This is been an ongoing issue and I have low suspicion for ACS and I do not believe she needs repeat labs or EKG. I will discharge her home to follow-up with her PCP. Impression: 1. Chest pain Lab Data Attestation: I reviewed the patient's lab results. Labs: Laboratory Results - last 24 hr 08/15/20 08/15/20 20:20 20:20 WBC 9.4 RBC 5.82 H Hgb 13.0 Hct 43.4 MCV 74.6 L MCH 22.3 L MCHC 30.0 L RDW Std Deviation 45.0 H RDW Coeff of Ewa 17.3 H Plt Count 330 MPV 9.9 Immature Gran % (Auto) 0.200 Neut % (Auto) 51.2 Lymph % (Auto) 41.3 H Aurora % (Auto) 4.9 Eos % (Auto) 1.7 Baso % (Auto) 0.7 Absolute Neuts (auto) 4.8 Absolute Lymphs (auto) 3.89 Sodium 140 Potassium 3.5 Chloride 106 Carbon Dioxide 30.0 Anion Gap 4 L BUN 14 Creatinine 0.84 Estim Creat Clear Calc 90.52 Est GFR (MDRD) Af Amer 104 Est GFR (MDRD) Non-Af 86 BUN/Creatinine Ratio 16.7 Glucose 75 Calcium 9.5 Troponin I < 0.015 Radiography Diagnostic Testing: Radiology Impression Chest X-Ray 08/15/20 20:48 IMPRESSION: No radiographic evidence of acute cardiopulmonary disease. at 2100 Reported and signed by: Gaivn Flores MD Electronically Signed: Gavin Flores MD at 20:58 EDT Tel , Service support , Chest CTA 08/15/20 21:20 IMPRESSION: Negative CTA Chest. No acute pulmonary findings. Individualized dose optimization techniques were used for this CT. at 2152 Reported and signed by: Gavin Flores MD Electronically Signed: Gavin Flores MD at 21:51 EDT Tel , Service support , Discharge Plan Triage Chief Complaint: Chest Pain ED Provider: Colt Bullock Dx/Rx/DC Orders Instructions: ED Chest Pain, Noncardiac Prescriptions: No Action PNV cmb#95-ferrous fumarate-FA 1 EACH tablet 1 ea PO DAILY RF: 0 Primary Care Provider: Julio Mcknight Referrals: Julio Mcknight DO [Primary Care Provider] - Disposition Disposition: Home, self care
[2020-08-15 21:15] VITALS: BP 132/81
--- NOTE | 2020-08-15 21:20 | CT_ITS ---
HISTORY: CHEST PAIN EXAMINATION: CTA Chest WO/W Contrast Injection TECHNIQUE: Helically acquired images were obtained of the chest following IV contrast as per pulmonary angiogram protocol with 3D reconstructions. A radiation dose optimization technique was used for this scan. IV Contrast dosage and agent: 100mL [id number]-[id number] COMPARISON: None FINDINGS: LUNGS, PLEURA AND LARGE AIRWAYS: No masses, consolidation, or edema. No pleural effusion or thickening. No pneumothorax. THYROID: Thyromegaly. PULMONARY ARTERIES: Normal in caliber. Scattered motion artifacts, no pulmonary embolism. AORTA AND GREAT VESSELS: No aneurysm or dissection. HEART AND PERICARDIUM: Heart size is normal. No pericardial effusion. No signs of right heart strain. MEDIASTINUM AND FADI: No mediastinal or hilar adenopathy. Esophagus is unremarkable. No hiatal hernia. UPPER ABDOMEN: No acute pathology. BONES: Unremarkable. CT/CTA Chest W/WO Contrast IMPRESSION: Negative CTA Chest. No acute pulmonary findings. Individualized dose optimization techniques were used for this CT. at 2152 Reported and signed by: Gavin Flores MD Electronically Signed: Gavin Flores MD at 21:51 EDT Tel , Service support ,
[2020-08-15 22:00] VITALS: BP 137/86; PULSE 76; RESP 18; O2SAT 99
[2020-08-15 22:12] VITALS: BP 136/91; PULSE 66; RESP 16; O2SAT 99
== END 2020-08-15 22:22 | disposition home or self-care (01) ==
PROVIDERS: Emergency Provider Student in an Organized Health Care Education/Training Program; PCP Student in an Organized Health Care Education/Training Program
DX: R07.89 Other chest pain (principal); M79.662 Pain in left lower leg; R60.0 Localized edema; E28.2 Polycystic ovarian syndrome
CPT/HCPCS: 71045; 71275; 80048; 84484; 85025; 93005; 99284; Q9967

== ENCOUNTER 2020-08-18 09:15 | Emergency (ER) | payer MEDICAID, SELFPAY ==
[2020-08-18 09:17] VITALS: BP 138/80; PULSE 84; RESP 16; TEMP 36.3; O2SAT 98; BMI 39.9
[2020-08-18] MEDS: 0.9% Normal Saline 1,000 ML 1000 ML IV (09:26)
--- NOTE | 2020-08-18 09:29 | EX.ED.DYSGE1 ---
HPI History of Present Illness Chief Complaint: Lower Extremity Injury Informant: patient Onset/Context/Timing Onset: Days Context: Gradual Onset Timing: Intermittent Current Severity: Mild Maximum Severity: Moderate Narrative Narrative: The patient is a 25-year-old female who is recently from June the presents to the emergency department with intermittent bilateral leg tingling, cramping, and spasm. She states that it has been going on since she was . She states that the wax and wane. She states over the past few days, has got more frequent. She denies any weakness. She states sometimes it will feel like her toes are cramping and spasming underneath. She is had no chest pain or shortness of breath. She was recently evaluated here for chest pain and had a negative CTA. She is not on any current medications. Prior similar symptoms: No Recent Illness/Hospitalization: No PFSH PFSH Medical History PCOS (polycystic ovarian syndrome) Home Medications naproxen 500 mg PO BID #20 tab 08/18/20 [Rx Last Taken Unknown] Allergy/AdvReac Type Severity Reaction Status Date / Time hydrocodone [From Vicodin] AdvReac Rash Verified 08/18/20 09:24 Social History Smoking Status: Never smoker ROS ROS ED Constitutional Constitutional ED: Denies chills or fever(s) Eyes Eyes: Denies blurry vision or change in vision ENT ENT ED: Denies ear pain or sore throat Cardiovascular Cardiovascular: Denies chest pain or palpitations Respiratory/Chest Respiratory/Chest: Denies cough, dyspnea or dyspnea on exertion Gastrointestinal Gastrointestinal: Denies abdominal pain, nausea or vomiting Genitourinary Genitourinary ED: Denies dysuria or urinary frequency Musculoskeletal Musculoskeletal: Denies arthralgias or myalgias Integumentary Denies rash Neurologic Neurologic: Reports paresthesias; Denies headache(s) or weakness Psychiatric Psychiatric: Denies anxiety or depression Endocrine Endocrinology: Denies polydipsia or polyuria Allergic/Immunologic Allergic/Immunologic ED: Denies urticaria EXAM Physical Exam Const Vital Signs: 08/18/20 09:17 Temperature 97.4 F L Temperature Source Temporal Pulse Rate 84 Respiratory Rate 16 Blood Pressure 138/80 H Blood Pressure Mean 99 Pulse Ox 98 Oxygen Delivery Method Room Air Positive well nourished and well developed General Appearance ED: well developed HEENT Reports normocephalic, head/scalp atraumatic and moist mucous membranes Eyes PERRL and EOMs intact bilaterally Neck no lymphadenopathy and supple General: Negative for tenderness Chest Wall inspection of chest normal Resp normal respiratory effort and clear to auscultation bilaterally Cardio regular rate, regular rhythm and no murmurs GI normal to inspection, nondistended, normoactive bowel sounds Palpation: Negative for tender, guarding or rebound tenderness present Back/Spine no CVA tenderness Cervical Spine: Negative for cervical spine tenderness Thoracic Spine / Upper Back: Negative for thoracic spinal tenderness Extremity normal to inspection General Extremety ED: Negative for edema or tenderness General Extremity: Negative for edema Neuro oriented x3, CN's II-XII intact bilaterally and no sensory deficits noted Neuro Narrative: No focal deficits appreciated. Sensorium / Orientation: alert Sensory Exam: No sensory level loss detected Motor Exam: strength 5/5 throughout Psych mental status grossly normal Skin no rashes or lesions noted, no wounds and skin turgor normal MDM MDM MDM Narrative Medical decision making narrative: Patient presents with paresthesias and intermittent cramping pain in bilateral lower extremities and in her left arm. She did have a recent negative CTA. She said no chest pain or dyspnea. Metabolic work-up was pursued and was unremarkable. At this point, I do not have a great explanation for her symptoms. She has normal strength and reflexes. She has a normal steady gait. There is no sensation loss. I am going to treat her with a short course of anti-inflammatories and have her follow-up with her primary care. Impression One. Lower extremity paresthesias Lab Data Attestation: I reviewed the patient's lab results. Labs: Laboratory Results - last 24 hr 08/18/20 08/18/20 09:36 09:36 WBC 6.8 RBC 5.93 H Hgb 13.6 Hct 44.6 MCV 75.2 L MCH 22.9 L MCHC 30.5 L RDW Std Deviation 45.5 H RDW Coeff of Ewa 17.4 H Plt Count 336 MPV 9.8 Immature Gran % (Auto) 0.300 Neut % (Auto) 57.4 Lymph % (Auto) 35.4 Labette % (Auto) 4.2 Eos % (Auto) 1.8 Baso % (Auto) 0.9 Absolute Neuts (auto) 3.9 Absolute Lymphs (auto) 2.42 Nucleated RBC % 0 Sodium 140 Potassium 3.8 Chloride 110 H Carbon Dioxide 27.0 Anion Gap 3 L BUN 13 Creatinine 0.81 Estim Creat Clear Calc 93.88 Est GFR (MDRD) Af Amer 109 Est GFR (MDRD) Non-Af 90 BUN/Creatinine Ratio 16.1 Glucose 90 Calcium 9.3 Magnesium 1.9 Total Bilirubin 0.40 AST 21 ALT 38 Alkaline Phosphatase 166 H Total Protein 8.0 Albumin 3.7 Globulin 4.3 H Albumin/Globulin Ratio 0.9 Discharge Plan Triage Chief Complaint: Lower Extremity Injury ED Provider: Oral Morse Dx/Rx/DC Orders Instructions: ED Paraesthesias Prescriptions: New naproxen 500 MG tablet 500 mg PO BID Qty: 20 RF: 0 Primary Care Provider: Julio Mcknight Referrals: Julio Mcknight DO [Primary Care Provider] -
[2020-08-18 09:50] LABS: Absolute Lymphocyte Count 2.42 X10^3/uL (0.83-4.51); Absolute Neutrophil Count 3.9 X10^3/uL (2.0-7.7); Basophil# 0.06 X10^3/uL; Basophil% 0.9 % (0-1); Eosinophil# 0.12 X10^3/uL; Eosinophils% 1.8 % (0-5); Hematocrit 44.6 % (37-47); Hemoglobin 13.6 g/dL (12.0-15.0); Lymphocyte # 2.42 X10^3/ul (0.83-4.51); Lymphocyte % 35.4 % (19-41); Mean Corp Hgb Conc 30.5 g/dL (32-36); Mean Corpuscular Hgb 22.9 pg (27.0-32.0); Mean Corpuscular Volume 75.2 fL (81-99); Mean Platelet Vol. 9.8 fl (6.2-12.0); Monocyte# 0.29 X10^3/uL; Monocyte% 4.2 % (0-10); NRBC Flagged by Analyzer 0 % (0-5); Neutrophil # 3.92 X10^3/uL (2.7-7.7); Neutrophil % 57.4 % (47-70); Platelet Count 336 K/mm3 (150-450); RBC Distribution Width CV 17.4 % (11.6-14.6); RBC Distribution Width SD 45.5 fl (35.1-43.9); Red Blood Count 5.93 M/mm3 (4.2-5.4); White Blood Count 6.8 K/mm3 (4.4-11.0)
[2020-08-18 10:02] LABS: ALB/GLOB Ratio 0.9 RATIO (0.9-2.4); AST(SGOT) 21 U/L (15-37); Alanine Aminotransfer ALT/SGPT 38 U/L (13-56); Albumin, Serum 3.7 g/dL (3.2-5.0); Alkaline Phosphatase 166 U/L (45-117); Anion Gap 3 (5-15); BUN 13 mg/dL (7-18); BUN/Creat Ratio 16.1 RATIO (10-20); Calcium,Total 9.3 mg/dL (8.5-10.1); Chloride 110 mmol/L (98-107); Creatinine, Serum 0.81 mg/dL (0.55-1.02); EST Glomerular Filtration Rate 90 mL/min (>60); Est Glom Filt Rate - Afr Amer 109 mL/min (>60); Estimated Creatinine Clearance 93.88 ml/min; Globulin 4.3 g/dL (2.2-4.2); Glucose 90 mg/dL (74-106); Magnesium 1.9 mg/dL (1.6-2.6); Potassium 3.8 mmol/L (3.5-5.1); Sodium Level 140 mmol/L (136-145)
[2020-08-18 10:49] VITALS: BP 131/77; PULSE 62; RESP 18; O2SAT 99
== END 2020-08-18 10:50 | disposition home or self-care (01) ==
LOC: ED 10:22
PROVIDERS: Emergency Provider Emergency Medicine; PCP Student in an Organized Health Care Education/Training Program
DX: R20.2 Paresthesia of skin (principal)
CPT/HCPCS: 80053; 83735; 85025; 96360; 99283; J7030; A4216

== ENCOUNTER 2020-11-27 10:40 | Emergency (ER) | payer MEDICAID, SELFPAY ==
[2020-11-27 10:41] VITALS: BP 143/72; PULSE 83; RESP 18; TEMP 36.1; O2SAT 99; BMI 38.1
--- NOTE | 2020-11-27 11:47 | EKG12_ITS ---
Test Reason : CHEST PAIN Blood Pressure : / mmHG Vent. Rate : 078 BPM Atrial Rate : 078 BPM P-R Int : 144 ms QRS Dur : 086 ms QT Int : 350 ms P-R-T Axes : 060 074 040 degrees QTc Int : 399 ms Normal sinus rhythm Normal ECG Confirmed by JANAK JAIMES, FRANCISCA ([id number]), map editor LILI SALINAS ([id number]) on 11/29/2020 9:56:25 AM Referred By: TANNER Confirmed By:FRANCISCA BRICENO MD
--- NOTE | 2020-11-27 11:54 | ED.VIS.CHEST ---
HPI History of Present Illness Chief Complaint: Chest Pain Informant: patient Onset/Context/Timing Onset: Yesterday Activity at onset: gradual and onset (With progressively worsening when present) Timing: Intermittent and Lasts (Hours or so) Quality: Positive for Aching Location: Left Chest (Feels like it is on the inside) Current Severity: Moderate Maximum Severity: Moderate Worsened By: Movement of Arm and Movement of Torso; Not Worsened By Exertion, Palpation and Breathing Relieved By: Remaining Still Associated Symptoms: Positive for Acid Reflux (Occasional burning since she has had this discomfort); Negative for Nausea, Vomiting, Diaphoresis, Dyspnea, Cough, Fever, Lightheadedness and Palpitations Narrative Narrative: Patient states she had this discomfort 6 months ago when she was breast-feeding, she no longer is breast-feeding, but she states she works at [employer] in [employer] and does a lot of heavy lifting and moving things around all day every day at work. She says it is worse with moving but she cannot push on it and make it worse and feels like it is on the inside more. She denies any recent travel or immobilization, hospitalization, surgery. No history of DVT or PE. She does get cramping in her left leg from time to time but nothing unusual or swelling lately. She denies being a smoker or using any female hormones of any kind including control pills or implanted devices. She denies any recent cough or shortness of breath or palpitations or lightheadedness. There is no radiation of the discomfort. [facility] Medical History Back problem Goiter Headache High blood pressure Low vitamin B12 level PCOS (polycystic ovarian syndrome) Seasonal allergies UTI (urinary tract infection) Home Medications naproxen 500 mg PO BID #20 tab 08/18/20 [Rx Last Taken Unknown] esomeprazole magnesium 40 mg PO DAILY #30 cap 11/27/20 [Rx Last Taken Unknown] Allergy/AdvReac Type Severity Reaction Status Date / Time hydrocodone [From Vicodin] AdvReac Rash Verified 11/27/20 11:09 Family History (Updated 11/02/20 @ 13:47 by Anahi Jensen) Other Anemia Anxiety Arthritis defect Blood clot in vein Breast cancer CVA (cerebral vascular accident) Cancer Cervical cancer Depression Diabetes High cholesterol Hormone deficiency Hypertension Ovarian cancer Seizures Suicidal intent Social History Smoking Status: Never smoker alcohol intake: current alcohol intake frequency: 0-2 drinks per day substance use type: does not use frequency: 3-4 times per week ROS ROS ED Constitutional Constitutional ED: Denies chills or fever(s) Eyes Eyes: Denies change in vision or diplopia ENT ENT ED: Denies rhinorrhea or sore throat Cardiovascular Cardiovascular: Reports as per HPI and chest pain; Denies palpitations Respiratory/Chest Respiratory/Chest: Denies cough or dyspnea Gastrointestinal Gastrointestinal: Denies abdominal pain, diarrhea, nausea or vomiting Genitourinary Genitourinary ED: Denies dysuria or hematuria Musculoskeletal Musculoskeletal: Denies back pain or neck pain Integumentary Denies abscess or rash Neurologic Neurologic: Denies headache(s), paresthesias or weakness Psychiatric Psychiatric: Denies anxiety or suicidal thoughts EXAM Physical Exam Const Vital Signs: 11/27/20 10:41 11/27/20 11:24 11/27/20 14:07 Temperature 97 F L Temperature Source Temporal Pulse Rate 83 Respiratory Rate 18 Respiratory Pattern Normal Blood Pressure 143/72 H 121/58 H Blood Pressure Mean 95 79 Pulse Ox 99 Oxygen Delivery Method Room Air Positive well nourished and well developed General Appearance ED: well developed and NAD HEENT Reports moist mucous membranes normocephalic and atraumatic Eyes PERRL and EOMs intact bilaterally Neck full ROM and supple Chest Wall inspection of chest normal and palpation of chest normal Resp normal respiratory effort and clear to auscultation bilaterally Cardio regular rate, regular rhythm and no murmurs Rate: Negative for tachycardic GI non-tender and non-distended Auscultation: normoactive bowel sounds Palpation: soft Back/Spine no CVA tenderness General Back: other FROM Extremity normal to inspection and no calf tenderness General Extremety ED: Negative for edema, pulses abnormal or tenderness General Extremity: Negative for edema or pulses abnormal Neuro oriented x3, CN's II-XII intact bilaterally and no sensory deficits noted Sensorium / Orientation: awake and alert Motor Exam: strength 5/5 throughout Skin no rashes or lesions noted and no wounds Heart Score History: Slightly/Non-Suspicious ECG: Normal Age: </= 45 years Risk Factors: 1 or 2 Risk Factors (Obesity only) Score: 1 MDM MDM MDM Narrative Medical decision making narrative: With patient symptoms had her normal EKG I do not think she needs a troponin measurement. I performed a chest x-ray and give her a GI cocktail given the possibility of reflux which the patient referred to and use those words although she had not tried any antacids. She went to sleep with the discomfort and woke up with it again this morning and it has been off and on this morning. GI cocktail did help some. Her x-ray is normal. Certainly musculoskeletal etiologies are in a differential diagnosis still, I think would be okay for her to take NSAIDs while she is on prescription for PPI which I will give her here. Advised to follow-up she is comfortable with that plan. Radiography Diagnostic Testing: Radiology Impression Chest X-Ray 11/27/20 12:25 IMPRESSION: Normal x-ray examination of the chest. Electronically Signed: Rogerio Fragoso MD at 12:48 EDT , Service support , EKG Initial EKG: Attestation: I personally reviewed and interpreted this EKG as follows: Interpretation: Sinus Rhythm and No Acute Injury Pattern Comments: Normal EKG Discharge Plan Triage Chief Complaint: Chest Pain ED Provider: Wesly Neil Dx/Rx/DC Orders Clinical Impression: Intermittent left-sided chest pain Instructions: ED Chest Pain, Uncertain Cause Prescriptions: New esomeprazole magnesium 40 mg capsule,delayed release(DR/EC) 40 mg PO DAILY Qty: 30 RF: 0 No Action naproxen 500 MG tablet 500 mg PO BID Qty: 20 RF: 0 Primary Care Provider: Julio Mcknight Referrals: Julio Mcknight DO [Primary Care Provider] - 3-5 Days if not improving Activity Restrictions/Additional Instructions: Okay to also use ibuprofen or Aleve in addition to the prescription as needed for discomfort Disposition Disposition: Home, Self Care
[2020-11-27] MEDS: Mag Hydrox/Al Hydrox/Simeth 30 ML UDC PO (12:03)
--- NOTE | 2020-11-27 12:25 | RAD_ITS ---
STUDY: X-RAY CHEST REASON FOR EXAM: Female, 25 years old. Chest pain for 2 days. TECHNIQUE: Single AP portable view of the chest. COMPARISON: Comparison is made with prior study of 08/15/2020. FINDINGS: EKG electrodes are seen. The lungs are clear and expanded. There is no demonstrated pleural abnormality. Normal size heart. Normal mediastinum and anibal. Normal visualized pulmonary arteries. Normal visualized aortic arch and descending thoracic aorta. Normal visualized thoracic spine. Normal visualized ribs, clavicles, and shoulders. There is no demonstrated abnormality of the visualized soft tissue structures of the upper abdomen. RAD/Chest 1 View (Portable) IMPRESSION: Normal x-ray examination of the chest. Electronically Signed: Rogerio Fragoso MD at 12:48 EDT , Service support ,
[2020-11-27 14:07] VITALS: BP 121/58
[2020-11-27 14:30] VITALS: BP 121/58
== END 2020-11-27 14:46 | disposition home or self-care (01) ==
PROVIDERS: Emergency Provider Emergency Medicine; PCP Student in an Organized Health Care Education/Training Program
DX: R07.9 Chest pain, unspecified (principal); R03.0 Elevated blood-pressure reading, without diagnosis of hypertension; Z79.899 Other long term (current) drug therapy
CPT/HCPCS: 71045; 93005; 99282; A4216

== ENCOUNTER → 2021-02-11 10:12 | Outpatient (CLI) | payer MEDICAID, SELFPAY ==
[2021-02-11 12:18] LABS: HIV - WCH Non-Reactive (Nonreactive); Hepatitis B Surface Antigen Non-Reactive (Nonreactive); Hepatitis C Antibody Non-Reactive (Nonreactive); Syphilis Antibodies Non-reactive
[2021-02-13 00:07] LABS: Chlamydia By Nucleic Acid AMP Negative (Negative)
[2021-02-13 13:59] LABS: Gonococcus By Nucleic Acid AMP Negative (Negative)
[2021-02-14 16:42] LABS: HPV Reflexed? NOT INDICATED
== END ==
PROVIDERS: PCP Student in an Organized Health Care Education/Training Program; Visit Provider Obstetrics & Gynecology
DX: Z12.4 Encounter for screening for malignant neoplasm of cervix (principal); Z11.3 Encounter for screening for infections with a predominantly sexual mode of transmission
CPT/HCPCS: 36415; 86703; 86780; 86803; 87340; 87491; 87591; 88175; G0145

== ENCOUNTER → 2021-03-13 09:59 | Outpatient (CLI) | payer MEDICAID, SELFPAY ==
--- NOTE | 2021-03-12 | IMM_PTH ---
PATIENT: ALFONZO MYRICK LOC: [facility] U#:[id number] AGE/SX: 29/F ROOM: RE03/13/[address]: Dr. Parker Simon MD : 1995 BED: DIS: SPEC #: [id number] RECD: 03/14/21 13:02 STATUS: BRIANA REQ #: [id number] GAURAV: 03/12/21 00:[address]: Parker Simon DEPT: IMMUNOHISTOCHEMISTRY RECD BY: Holly Sellers ENTERED: 03/14/21 13:03 SP TYPE: IMMUNO OTHR DR: Dr. Julio Mcknight DO Tissues: A - Uterine cervix, NOS Procedures: p16 (initial) KI-67 (add) PHYSICIAN & INSTITUTION [place] [id number] SPECIMEN INFORMATION: Tissue Source: A - Cervical biopsy Clinical Info: [facility] Specimen Number: [id number] CPT code: 61130, 74121 METHODOLOGY: Deparaffinized sections of prefer/formalin-fixed tissue or PAP/DQ stained slides are incubated with monoclonal/polyclonal antibodies/oligonucleotide probes. Localization is made via biotin free immunoperoxidase method. Appropriate controls are performed and reacted as expected. Results on target cell population are indicated in the following table: RESULTS: ANTIBODY / CLONE RESULT Block A P16 (E6H4) positive, focal, patchy Ki-67 (30-9) positive, low These tests were developed and their performance characteristics determined by [facility]. They may not have been cleared or approved by the U.S. Food and Drug Administration. The FDA has determined that such clearance or approval is not necessary. The above immunohistochemical/dualISH markers are ordered and reviewed by the Pathologist. INTERPRETATION: A. Cervical biopsy: Consistent with focal HPV change (LSIL) AM:skyler 03/15/2021
--- NOTE | 2021-03-12 | CER_PTH ---
PATIENT: ALFONZO MYRICK LOC: [facility] U#:[id number] AGE/SX: 29/F ROOM: RE03/13/[address]: Dr. Parker Simon MD : 1995 BED: DIS: SPEC #: [id number] RECD: 03/13/21 11:19 STATUS: BRIANA RE #: [id number] GAURAV: 03/12/21 00:[address]: Parker Simon DEPT: SURGICAL PATHOLOGY RECD BY: Jennifer Engel ENTERED: 03/13/21 11:20 SP TYPE: CERV OTHR DR: Dr. Julio Mcknight DO Tissues: A - Uterine cervix, NOS B - Endocervical Procedures: Surgery Specimen Level IV Comments: @ Specimen number changed from [id number] to [id number] @ on 03/13/21 at 1436 by RGOOD. HEADER OPERATION: Colonoscopy PRE-OP DIAGNOSIS: LGSIL TISSUE SUBMITTED: A ? Cervical biopsy 1, 5, 7, 11, B - ECC MICROSCOPIC DIAGNOSIS A. 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 Squamous metaplasia and chronic inflammation. See comment. B. Endocervix, curettings (cell block): Rare benign endocervical cells present. AM:skyler 03/14/2021 COMMENT A. Results from immunohistochemistry ([id number]) for surrogate HPV marker (p16) will be reported separately. MICROSCOPIC DESCRIPTION Slides are reviewed. GROSS DESCRIPTION A - Received in fixative is one container labeled with the patient's name and designated cervical biopsy. The specimen consists of multiple irregular fragments of light santos soft tissue that in aggregate measure 2 x 1 x 0.1 cm. The specimen is totally submitted in one cassette. B - Received in fixative is one container labeled with the patient's name and designated ECC. The specimen consists of approximately 25 ml of reddish-santos fluid. The fluid is submitted for cytology. / AM:skyler 03/13/21 TC: CPT: 22717 x2
== END ==
PROVIDERS: PCP Student in an Organized Health Care Education/Training Program; Visit Provider Obstetrics & Gynecology
DX: R87.612 Low grade squamous intraepithelial lesion on cytologic smear of cervix (LGSIL) (principal)
CPT/HCPCS: 87086; 88305; 88341; 88342

== ENCOUNTER 2021-05-04 23:22 | Emergency (ER) | payer MEDICAID, SELFPAY ==
[2021-05-04 23:23] VITALS: BP 130/83; PULSE 82; RESP 16; TEMP 36.2; O2SAT 100; BMI 38.2
--- NOTE | 2021-05-04 23:44 | EX.ED.DYSGE1 ---
HPI History of Present Illness Chief Complaint: Head Injury Narrative Narrative: Patient is a 25-year-old female who states she was at work this evening when she stood up and struck the top of her head on an open cabinet. She states she was dazed for a few seconds but denies any loss of consciousness. She denies any blood thinner use or history of bleeding disorder. She states she was able to finish out her shift but with the head injury was concerned and secondary to this comes the hospital for evaluation. PFSH [facility]LY [facility], [facility] Medical History Back problem Goiter Headache High blood pressure Low vitamin B12 level PCOS (polycystic ovarian syndrome) Seasonal allergies UTI (urinary tract infection) Home Medications naproxen 500 mg PO BID #20 tab 08/18/20 [Rx Last Taken Unknown] esomeprazole magnesium 40 mg PO DAILY #30 cap 11/27/20 [Rx Last Taken Unknown] Allergy/AdvReac Type Severity Reaction Status Date / Time hydrocodone [From Vicodin] AdvReac Rash Verified 05/04/21 23:25 Family History (Updated 11/02/20 @ 13:47 by Anahi Jensen) Other Anemia Anxiety Arthritis defect Blood clot in vein Breast cancer CVA (cerebral vascular accident) Cancer Cervical cancer Depression Diabetes High cholesterol Hormone deficiency Hypertension Ovarian cancer Seizures Suicidal intent Social History Smoking Status: Never smoker alcohol intake: current alcohol intake frequency: 0-2 drinks per day substance use type: does not use frequency: 3-4 times per week ROS ROS ED Constitutional Constitutional ED: Denies chills or fever(s) Eyes Eyes: Denies change in vision ENT ENT ED: Denies sore throat Cardiovascular Cardiovascular: Denies chest pain Respiratory/Chest Respiratory/Chest: Denies cough or dyspnea Gastrointestinal Gastrointestinal: Denies abdominal pain, diarrhea, nausea or vomiting Genitourinary Genitourinary ED: Denies dysuria Musculoskeletal Musculoskeletal: Denies myalgias Integumentary Reports Abrasions; Denies rash Neurologic Neurologic: Reports headache(s) Hematologic/Lymphatic Hematologic/Lymphatic: Denies easy bleeding or easy bruising EXAM Physical Exam Const Vital Signs: 05/04/21 23:23 Temperature 97.2 F L Temperature Source Temporal Pulse Rate 82 Respiratory Rate 16 Blood Pressure 130/83 H Blood Pressure Mean 98 Pulse Ox 100 Oxygen Delivery Method Room Air Positive well nourished and well developed General Appearance ED: well developed HEENT Reports TM's clear and moist mucous membranes HEENT Narrative: Patient has a superficial 1.5 cm linear dermal layer abrasion to the frontal aspect of the parietal section of her scalp. There is a small hematoma associated with this. This is consistent with her report of head injury but otherwise there are no signs of depressed or basilar skull fracture Tympanic Membrane ED: Yes TM's clear Eyes PERRL and EOMs intact bilaterally Neck supple Neck Narrative: No bony deformity or step-off of the cervical spine no midline pain with palpation. Patient can move her neck in all directions without difficulty or pain Resp normal respiratory effort and clear to auscultation bilaterally Cardio regular rate and regular rhythm Extremity normal to inspection Neuro oriented x3 and CN's II-XII intact bilaterally Sensorium / Orientation: alert Motor Exam: strength 5/5 throughout Psych mental status grossly normal Skin no rashes or lesions noted Skin Narrative: Hematoma with superficial abrasion to the parietal portion of the scalp as documented above MDM MDM MDM Narrative Medical decision making narrative: Patient presented to the ER multiple hours after a low mechanism of injury head trauma. She had no signs of depressed or basilar skull fracture she had no midline neck pain and was able to move her neck in all directions without difficulty. She denied any blood thinner use or history of bleeding disorder and had no history symptoms consistent with concussion. We discussed possible CT scan at this time the patient is low risk for underlying head injury and I do not feel it is necessary to expose her to the radiation secondary to this. Patient agrees with this plan of care and will be discharged at this time Discharge Plan Triage Chief Complaint: Head Injury ED Provider: Damián Contreras Dx/Rx/DC Orders Clinical Impression: Closed head injury, Hematoma of parietal scalp Instructions: ED Scalp Contusion, ED Head Injury (Adult) Prescriptions: No Action naproxen 500 MG tablet 500 mg PO BID Qty: 20 RF: 0 esomeprazole magnesium 40 mg capsule,delayed release(DR/EC) 40 mg PO DAILY Qty: 30 RF: 0 Primary Care Provider: Julio Mcknight Referrals: Julio Mcknight DO [Primary Care Provider] - Disposition Disposition: Home, Self Care
== END 2021-05-05 00:03 | disposition home or self-care (01) ==
LOC: ED 23:54
PROVIDERS: Emergency Provider Emergency Medicine; PCP Student in an Organized Health Care Education/Training Program; Visit Provider Emergency Medicine
DX: S00.03XA Contusion of scalp, initial encounter (principal); X58.XXXA Exposure to other specified factors, initial encounter
CPT/HCPCS: 99283

== ENCOUNTER 2021-05-19 22:16 | Emergency (ER) | payer MEDICAID, SELFPAY ==
[2021-05-19 22:17] VITALS: BP 132/77; PULSE 78; RESP 15; TEMP 36.4; O2SAT 100; BMI 39.2
--- NOTE | 2021-05-19 22:28 | EX.ED.DYSGE1 ---
HPI History of Present Illness Chief Complaint: Chest Other Informant: patient Narrative Narrative: Patient presents with a sensation of bubbles in her throat and chest and upper abdomen area. She states there is no pain pressure or discomfort. She is not at all short of breath. She has a history of reflux but is not currently taking esomeprazole. She states she is eating terribly today with a lot of snack foods. She is also had a lot of chocolate/recedes cups. She is also had 2 or 3 [employer] and she normally does not drink caffeine. She has no recent travel surgery immobilization personal or family history of DVT or PE. There is no family history of heart disease. She has no diabetes blood pressure or cholesterol. She states this feels just like her reflux is just lasting longer than normal but her diet was markedly worse than normal today. Nothing really makes it better but she has not tried anything. [facility] Medical History (Updated 05/19/21 @ 22:[address] Mc Spears MD) Back problem GERD (gastroesophageal reflux disease) Goiter Headache High blood pressure Low vitamin B12 level PCOS (polycystic ovarian syndrome) Seasonal allergies UTI (urinary tract infection) Home Medications naproxen 500 mg PO BID #20 tab 08/18/20 [Rx Last Taken Unknown] esomeprazole magnesium 40 mg PO DAILY #30 cap 11/27/20 [Rx Last Taken Unknown] Allergy/AdvReac Type Severity Reaction Status Date / Time hydrocodone [From Vicodin] AdvReac Rash Verified 05/19/21 22:17 Family History Other Anemia Anxiety Arthritis defect Blood clot in vein Breast cancer CVA (cerebral vascular accident) Cancer Cervical cancer Depression Diabetes High cholesterol Hormone deficiency Hypertension Ovarian cancer Seizures Suicidal intent Social History Smoking Status: Never smoker alcohol intake: current alcohol intake frequency: 0-2 drinks per day substance use type: does not use frequency: 3-4 times per week ROS ROS ED Constitutional Constitutional ED: Denies chills or fever(s) ENT ENT ED: Reports other Details: A feeling of bubbles in her throat but no actual acid taste. ; Denies rhinorrhea Cardiovascular Cardiovascular: Denies chest pain or palpitations Respiratory/Chest Respiratory/Chest: Denies cough or dyspnea Gastrointestinal Gastrointestinal: Reports other Details: See history of present illness. ; Denies abdominal pain, diarrhea, nausea or vomiting Musculoskeletal Musculoskeletal: Denies back pain or myalgias Integumentary Denies rash Neurologic Neurologic: Denies headache(s) Psychiatric Psychiatric: Reports anxiety Endocrine Endocrinology: Denies polydipsia or polyuria Allergic/Immunologic Allergic/Immunologic ED: Denies mouth swelling or urticaria EXAM Physical Exam Const Vital Signs: 05/19/21 22:17 Temperature 97.5 F L Temperature Source Temporal Pulse Rate 78 Respiratory Rate 15 Blood Pressure 132/77 H Blood Pressure Mean 95 Pulse Ox 100 Oxygen Delivery Method Room Air Positive well nourished and well developed General Appearance ED: well developed and NAD; Negative for cyanotic or diaphoretic HEENT Reports moist mucous membranes Negative for trauma Eyes General Eye ED: Negative for pale conjunctiva or scleral icterus Neck no JVD Chest Wall inspection of chest normal Resp normal respiratory effort and clear to auscultation bilaterally Resp Narrative: No pain with deep breath. Effort and Inspection: Negative for pain with movement Auscultation: Negative for rales, rhonchi or wheezes Cardio regular rate and regular rhythm GI normal to inspection, nondistended, normoactive bowel sounds and non-tender Palpation: soft Back/Spine no CVA tenderness Extremity General Extremety ED: Negative for edema or tenderness General Extremity: Negative for edema Neuro Sensorium / Orientation: alert Psych mental status grossly normal Skin no rashes or lesions noted MDM MDM MDM Narrative Medical decision making narrative: Patient has normal vitals, she has no pain, no dyspnea. Her symptoms are consistent with reflux. She is PERC negative. I do not think any work-up is needed. She has no palpitations or pain. I do not think an EKG is going to change this. We will treat with a GI cocktail. She is encouraged to take Prilosec OTC. Discharge Plan Triage Chief Complaint: Chest Other ED Provider: Mc Spears Dx/Rx/DC Orders Clinical Impression: GERD (gastroesophageal reflux disease) Instructions: ED GERD (Adult) Prescriptions: No Action naproxen 500 MG tablet 500 mg PO BID Qty: 20 RF: 0 esomeprazole magnesium 40 mg capsule,delayed release(DR/EC) 40 mg PO DAILY Qty: 30 RF: 0 Primary Care Provider: Julio Mcknight Referrals: Julio Mcknight DO [Primary Care Provider] - 3-5 Days if not improving Activity Restrictions/Additional Instructions: Decrease caffeine chocolate and acidic foods such as tomato sauces. He may use Prilosec or Nexium [id number]. Disposition Disposition: Home, Self Care
[2021-05-19] MEDS: Mag Hydrox/Al Hydrox/Simeth 30 ML UDC PO (22:37)
== END 2021-05-19 22:49 | disposition home or self-care (01) ==
LOC: ED 22:41
PROVIDERS: Emergency Provider Emergency Medicine; PCP Student in an Organized Health Care Education/Training Program; Visit Provider Emergency Medicine
DX: K21.9 Gastro-esophageal reflux disease without esophagitis (principal)
CPT/HCPCS: 99283

== ENCOUNTER 2022-01-02 03:04 | Emergency (ER) | payer MEDICAID, SELFPAY ==
[2022-01-02 03:05] VITALS: BP 143/82; PULSE 100; RESP 18; TEMP 36.6; O2SAT 100; BMI 42.9
--- NOTE | 2022-01-02 03:17 | EX.ED.UPPERE ---
HPI History of Present Illness Chief Complaint: Other, Pain/Inj Informant: patient Onset/Context/Timing Onset: Yesterday Context: Gradual Onset Timing: Continuous Quality of Pain: Aching Location: left neck/upper back/upper arm Current Severity: Moderate Maximum Severity: Severe Worsened by: lying on left side, neck flexion, shoulder abduction Relieved by: neutral position LUE and head Associated Symptoms Associated Symptoms: Negative for Parasthesia, Weakness or Loss of Funtion Narrative Narrative: Patient states she had gradual onset of pain in her left neck and upper back as well as her left upper arm, down to around the elbow area or a little proximally, since yesterday. Worse tonight, she presented 3 in the morning because she is having trouble sleeping due to the pain. Certain movements/positions of the head and neck make the pain hurt worse, especially turning ipsilaterally toward the left side. She does not have pain on the right side. 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 She also did an elliptical workout machine yesterday. She denies any other fall or injury or recent illness. She denies any tingling going down her arm, but since the discomfort was in her arm it was concerning her. She denies weakness. She denies any neurologic symptoms or pain in her legs. Lifting her left upper extremity makes the arm hurt worse. [facility] Medical History (Updated 01/02/22 @ 03:[address] Wesly Neil MD) Back problem GERD (gastroesophageal reflux disease) Goiter Headache High blood pressure Low vitamin B12 level PCOS (polycystic ovarian syndrome) Seasonal allergies UTI (urinary tract infection) Home Medications cyclobenzaprine 10 mg tablet 10 mg PO TID PRN Muscle Spasm #20 TABLETS 01/02/22 [Rx Last Taken Unknown] prednisone 20 mg tablet 40 mg PO DAILY #8 TABLETS 01/02/22 [Rx Last Taken Unknown] Allergy/AdvReac Type Severity Reaction Status Date / Time hydrocodone [From Vicodin] AdvReac Rash Verified 01/02/22 03:08 Family History Other Anemia Anxiety Arthritis defect Blood clot in vein Breast cancer CVA (cerebral vascular accident) Cancer Cervical cancer Depression Diabetes High cholesterol Hormone deficiency Hypertension Ovarian cancer Seizures Suicidal intent Social History Smoking Status: Never smoker alcohol intake: current alcohol intake frequency: 0-2 drinks per day substance use type: does not use frequency: 3-4 times per week ROS ROS ED Constitutional Constitutional ED: Denies chills or fever(s) Eyes Eyes: Denies blurry vision, change in vision or diplopia Musculoskeletal Musculoskeletal: Reports back pain, extremity pain and neck pain Integumentary Denies Abrasions, rash or wounds Neurologic Neurologic: Denies paresthesias or weakness EXAM Physical Exam Const Vital Signs: 01/02/22 03:05 Temperature 97.8 F Temperature Source Temporal Pulse Rate 100 Respiratory Rate 18 Blood Pressure 143/82 H Blood Pressure Mean 102 Pulse Ox 100 Oxygen Delivery Method Room Air Positive well nourished and well developed General Appearance ED: well developed and NAD Neck full ROM and supple Neck Narrative: Tender throughout the left paraspinal posterior cervical musculature. No sternocleidomastoid tenderness, no mastoid process tenderness. Full range of motion, patient states that hurts more to turn ipsilaterally to the left. General: tenderness Back/Spine normal ROM and normal to inspection Back/Spine Narrative: Tender left upper back diffusely especially in rhomboids. No spinal tenderness. No bony scapular tenderness. Extremity normal to inspection and full ROM Extremity Narrative: Tender throughout the left trapezius and into the subacromial area but not severely so. Pain with abduction of the left shoulder but able to range fully. No acromioclavicular or clavicle tenderness. No other extremity tenderness. Neuro oriented x3, no focal motor deficits and no sensory deficits noted Sensorium / Orientation: alert Psych mental status grossly normal and thought process normal Skin no wounds Rashes: no rashes MDM MDM MDM Narrative Medical decision making narrative: She is neurologically intact, normal pulses in her upper extremities and symmetric, most of this sounds very muscular. There is a possibility this is a cervical radiculopathy of the C5 distribution but I think it is more likely to all be muscular. No radiography is emergently indicated, I am prescribing her some cyclobenzaprine to try as well as a short course of prednisone in case there is a cervical sensory radiculopathy. She is comfortable with that plan and following up. Discharge Plan Triage Chief Complaint: Other, Pain/Inj ED Provider: Wesly Neil Dx/Rx/DC Orders Clinical Impression: Strain of left trapezius muscle, Pain of left upper arm Instructions: ED Neck Sprain or Strain Prescriptions: New cyclobenzaprine [cyclobenzaprine] 10 MG tablet 10 mg PO TID PRN (Reason: Muscle Spasm) Qty: 20 0RF prednisone 20 MG tablet 40 mg PO DAILY Qty: 8 0RF Rx Instructions: start 01/03 Primary Care Provider: Julio Mcknight Referrals: Julio Mcknight, [Primary Care Provider] - 1 Week if not improving Activity Restrictions/Additional Instructions: Most likely just muscle strain, but prednisone may help if pinched C5 nerve root coming from neck; follow-up if symptoms persist more than 1-2 weeks despite medication. Add ibuprofen up to 600 mg every 8 hours as needed for pain to these prescriptions if needed. Disposition Disposition: Home, Self Care
[2022-01-02] MEDS: predniSONE 20 MG Tablet 40 MG PO (03:21)
[2022-01-02 03:25] VITALS: BP 143/82; PULSE 100; RESP 18; O2SAT 100
== END 2022-01-02 03:33 | disposition home or self-care (01) ==
LOC: ED 03:30
PROVIDERS: Emergency Provider Emergency Medicine; PCP Student in an Organized Health Care Education/Training Program; Visit Provider Emergency Medicine
DX: S46.812A Strain of other muscles, fascia and tendons at shoulder and upper arm level, left arm, initial encounter (principal); M79.622 Pain in left upper arm; X58.XXXA Exposure to other specified factors, initial encounter
CPT/HCPCS: 99283

== ENCOUNTER → 2022-06-18 | Outpatient (CLI) | payer MEDICAID, SELFPAY ==
[2022-06-18 12:05] LABS: HIV - WCH Non-Reactive (Nonreactive); Hepatitis B Surface Antibody Reactive; Syphilis Antibodies Non-reactive
[2022-06-19 05:08] LABS: HEPATITIS B SURFACE AG Negative (Negative); Hep C Antibodies Non Reactive (Non Reactive); Hepatitis A IgM Antibody Negative (Negative); Hepatitis B Core AB IgM Negative (Negative)
[2022-06-19 15:34] LABS: Hepatitis A AB, Total Positive (Negative)
[2022-06-25 13:39] LABS: HPV APTIMA, High Risk Negative (Negative)
== END | disposition home or self-care (01) ==
PROVIDERS: PCP Student in an Organized Health Care Education/Training Program; Visit Provider Obstetrics & Gynecology
DX: Z01.419 Encounter for gynecological examination (general) (routine) without abnormal findings (principal); Z11.3 Encounter for screening for infections with a predominantly sexual mode of transmission; Z12.4 Encounter for screening for malignant neoplasm of cervix
CPT/HCPCS: 36415; 80074; 86703; 86706; 86708; 86780; 87624; 88175; G0145

== ENCOUNTER → 2022-11-21 | Outpatient (CLI) | payer MEDICAID, SELFPAY ==
[2022-11-21 11:00] LABS: Absolute Lymphocyte Count 2.32 X10^3/uL (0.83-4.51); Absolute Neutrophil Count 7.1 X10^3/uL (2.0-7.7); Basophil# 0.05 X10^3/uL; Basophil% 0.5 % (0-1); Eosinophil# 0.08 X10^3/uL; Eosinophils% 0.8 % (0-5); Hematocrit 40.1 % (37-47); Hemoglobin 13.5 g/dL (12.0-15.0); Lymphocyte # 2.32 X10^3/ul (0.83-4.51); Lymphocyte % 23.2 % (19-41); Mean Corp Hgb Conc 33.7 g/dL (32-36); Mean Corpuscular Hgb 27.3 pg (27.0-32.0); Mean Corpuscular Volume 81.2 fL (81-99); Mean Platelet Vol. 9.8 fl (6.2-12.0); Monocyte# 0.39 X10^3/uL; Monocyte% 3.9 % (0-10); NRBC Flagged by Analyzer 0 % (0-5); Neutrophil # 7.13 X10^3/uL (2.7-7.7); Neutrophil % 71.2 % (47-70); Platelet Count 306 K/mm3 (150-450); RBC Distribution Width CV 14.8 % (11.6-14.6); RBC Distribution Width SD 43.4 fl (35.1-43.9); Red Blood Count 4.94 M/mm3 (4.2-5.4)
[2022-11-21 14:16] LABS: HIV - WCH Non-Reactive (Nonreactive); Hepatitis B Surface Antigen Non-Reactive (Nonreactive); Hepatitis C Antibody Non-Reactive (Nonreactive); Rubella IgG Reactive (Nonreactive); Syphilis Antibodies Non-reactive
[2022-11-22 07:08] LABS: V-Zoster IgG (Immunity) 787 index (Immune >165)
== END | disposition home or self-care (01) ==
LOC: WOBLAB 10:07
PROVIDERS: PCP Student in an Organized Health Care Education/Training Program; Visit Provider Obstetrics & Gynecology
DX: Z34.81 Encounter for supervision of other normal pregnancy, first trimester (principal)
CPT/HCPCS: 36415; 85025; 86703; 86762; 86780; 86787; 86803; 87086; 87088; 87340

== ENCOUNTER 2023-01-08 15:13 | Emergency (ER) | payer MEDICAID, SELFPAY ==
[2023-01-08 15:16] VITALS: BP 138/72; PULSE 98; RESP 18; TEMP 36.4; O2SAT 100; BMI 44.2
--- NOTE | 2023-01-08 16:14 | EDS_ITS ---
HPI History of Present Illness Chief Complaint: Syncope Detail of Chief Complaint: Near syncope Informant: patient Narrative Narrative: Presents to the emergency department complaint of near syncopal episode. Patient states that she is currently 13 weeks and she is G4, P3. She is been having intermittent headaches since the . She does have history of migraines. She woke up with a headache today but then seem to go away. She had come home from being out this afternoon and then while standing at the computer for about 10 minutes she started feeling like her headache was coming on again felt lightheaded and nauseated and fell like she was in a pass out. Patient did not actually pass out. Patient also has been having intermittent abdominal cramping and she had some right lower quadrant abdominal cramping. She states that currently her headaches gone and her abdominal pain is gone. She denies fever or recent illness. Patient has had a pelvic ultrasound with this that showed an intrauterine weeks ago. [place] any vaginal bleeding. [facility] Medical History (Updated 01/08/23 @ 17:[address] Jose Lynch DO) Back problem GERD (gastroesophageal reflux disease) Goiter Headache High blood pressure Low vitamin B12 level PCOS (polycystic ovarian syndrome) Seasonal allergies UTI (urinary tract infection) Home Medications cyclobenzaprine 10 mg tablet 10 mg PO TID PRN Muscle Spasm #20 TABLETS 01/02/22 [Rx Last Taken Unknown] prednisone 20 mg tablet 40 mg (2 x 20 mg) PO DAILY #8 TABLETS 01/02/22 [Rx Last Taken Unknown] Allergy/AdvReac Type Severity Reaction Status Date / Time hydrocodone [From Vicodin] AdvReac Rash Verified 01/08/23 15:16 Family History Other Anemia Anxiety Arthritis defect Blood clot in vein Breast cancer CVA (cerebral vascular accident) Cancer Cervical cancer Depression Diabetes High cholesterol Hormone deficiency Hypertension Ovarian cancer Seizures Suicidal intent Social History Smoking Status: Never smoker alcohol intake: current alcohol intake frequency: 0-2 drinks per day substance use type: does not use frequency: 3-4 times per week ROS ROS ED ROS Narrative Near syncope Review of Systems ROS Unobtainable: other Constitutional Constitutional ED: Reports lethargy; Denies chills, fever(s), sweats or weight loss Eyes Eyes: Denies blurry vision, change in vision or diplopia ENT ENT ED: Denies rhinorrhea or sore throat Cardiovascular Cardiovascular: Denies chest pain, orthopnea or racing heartbeat Respiratory/Chest Respiratory/Chest: Denies cough, dyspnea, dyspnea on exertion, orthopnea or sputum Gastrointestinal Gastrointestinal: Reports abdominal pain and nausea; Denies diarrhea or vomiting Genitourinary Genitourinary ED: Denies dysuria, hematuria or urinary frequency Musculoskeletal Musculoskeletal: Denies arthralgias, back pain, myalgias or neck pain Integumentary Denies abscess, Abrasions or rash Neurologic Neurologic: Denies headache(s) or weakness Psychiatric Psychiatric: Denies anxiety, depression or suicidal thoughts Endocrine Endocrinology: Denies polydipsia, polyphagia or polyuria Hematologic/Lymphatic Hematologic/Lymphatic: Denies easy bleeding, easy bruising or lymphadenopathy Allergic/Immunologic Allergic/Immunologic ED: Denies mouth swelling, tongue swelling or urticaria EXAM Physical Exam Const Vital Signs: 01/08/23 15:16 01/08/23 16:03 01/08/23 17:27 Temperature 97.5 F L Temperature Source Temporal Pulse Rate 98 Pulse Rate [Lying] 83 Pulse Rate [Standing (for 1 minute prior to obtaining)] 91 Respiratory Rate 18 Respiratory Effort Normal Non-Labored Respiratory Pattern Normal Blood Pressure 138/72 H Blood Pressure [Lying] 146/70 H Blood Pressure [Sitting (for 1 minute prior to obtaining)] 124/76 H Blood Pressure [Standing (for 1 minute prior to obtaining)] 141/91 H Blood Pressure Mean 94 Blood Pressure Mean [Lying] 95 Blood Pressure Mean [Sitting (for 1 minute prior to obtaining)] 92 Blood Pressure Mean [Standing (for 1 minute prior to obtaining)] 107 Pulse Ox 100 Oxygen Delivery Method Room Air 01/08/23 17:51 Temperature Temperature Source Pulse Rate 71 Pulse Rate [Lying] Pulse Rate [Standing (for 1 minute prior to obtaining)] Respiratory Rate 16 Respiratory Effort Respiratory Pattern Blood Pressure 121/67 H Blood Pressure [Lying] Blood Pressure [Sitting (for 1 minute prior to obtaining)] Blood Pressure [Standing (for 1 minute prior to obtaining)] Blood Pressure Mean 85 Blood Pressure Mean [Lying] Blood Pressure Mean [Sitting (for 1 minute prior to obtaining)] Blood Pressure Mean [Standing (for 1 minute prior to obtaining)] Pulse Ox 100 Oxygen Delivery Method Positive well nourished and well developed General Appearance ED: well developed and NAD HEENT Reports TM's clear and moist mucous membranes normocephalic and atraumatic; Negative for trauma or tenderness Tympanic Membrane ED: Yes TM's clear Eyes PERRL and EOMs intact bilaterally General Eye ED: Negative for pale conjunctiva or scleral icterus Neck no lymphadenopathy, supple and no JVD General: Negative for tenderness Chest Wall inspection of chest normal and palpation of chest normal Chest: Negative for tenderness Resp normal respiratory effort and clear to auscultation bilaterally Effort and Inspection: Negative for respiratory distress or pain with movement Auscultation: Negative for rhonchi, wheezes or diminished lung sounds Cardio regular rate, regular rhythm, S1 normal heart sound, S2 normal heart sound and no murmurs Peripheral Pulses: pulses 2+ throughout GI normal to inspection, nondistended, normoactive bowel sounds, soft to palpation, non-tender, non-distended and no masses Back/Spine no CVA tenderness and no thoracic nor lumbar tenderness Extremity normal to inspection General Extremety ED: Negative for edema General Extremity: Negative for edema Neuro oriented x3, CN's II-XII intact bilaterally, no sensory deficits noted and gait normal Sensorium / Orientation: awake, alert, oriented to person, oriented to place and oriented to time Motor Exam: strength 5/5 throughout and strength abnormal Psych mental status grossly normal Skin no rashes or lesions noted and no wounds MDM MDM MDM Narrative Medical decision making narrative: Patient presents with lightheadedness and intermittent headaches and intermittent lower abdominal cramping. Patient is 13 weeks . Urinalysis obtained was unremarkable for infection and I did send off a culture. Patient was unable to have heart tones in the ER given that she is only 13 weeks but I was able to look with our ultrasound machine and she was noted to have intrauterine with cardiac activity and movement of the fetus. Patient had orthostatic vital signs that were negative. At this time her abdominal exam is benign and I do not feel she requires any further imaging or work-up. Headaches currently resolved. She does have history of migraines which can be exacerbated with . Patient advised to push fluids and use Tylenol as needed for discomfort. She is to follow-up with her [employer] next week as she already has an appointment. Lab Data Attestation: I reviewed the patient's lab results. Labs: Laboratory Results - last 24 hr 01/08/23 16:34 Urine Color Yellow Urine Clarity Clear Urine pH 6.5 Ur Specific [place] 1.015 Urine Protein 15 H Urine Glucose (UA) Normal Urine Ketones Negative Urine Occult Blood Negative Urine Nitrite Negative Urine Bilirubin Negative Urine Urobilinogen Normal Ur Leukocyte Esterase 500 H Urine RBC 0 SEEN Urine WBC 0-5 SEEN Ur Squamous Epith Cells 0-5 SEEN Urine Bacteria 0 SEEN Urine Mucus 0 SEEN Discharge Plan Triage Chief Complaint: Syncope Other Complaint: Headache ED Provider: Jose Lynch Dx/Rx/DC Orders Clinical Impression: Headache, Near syncope, Abdominal pain Instructions: ED Abdominal Pain Unkn Cause Fem, ED Headache Unspecified, ED Near-Fainting, Uncertain Cause Prescriptions: No Action cyclobenzaprine [cyclobenzaprine] 10 MG tablet 10 mg PO TID PRN (Reason: Muscle Spasm) Qty: 20 0RF prednisone 20 MG tablet 40 mg PO DAILY Qty: 8 0RF Rx Instructions: start 01/03 Primary Care Provider: Julio Mcknight Referrals: Julio Mcknight DO [Primary Care Provider] - Activity Restrictions/Additional Instructions: See your [employer] next week. Disposition Disposition: Home, Self Care Discharge Date/Time: 01/08/23 17:52
[2023-01-08 16:39] LABS: Bacteria 0 SEEN /hpf (None Seen); Mucous, Urine 0 SEEN /hpf (<or=2+); Red Blood Cells-Urine 0 SEEN /hpf (0-5)
[2023-01-08 16:50] LABS: Color, Urine Yellow (Yellow); Glucose, Dipstick Normal (Normal); Ketone-Dipstick Negative (Negative); Leukocyte Esterase-Dipstick 500 /ul (Negative); Nitrite-Dipstick Negative (Negative); Occult Blood-Urine Negative /ul (Negative); Protein-Dipstick 15 mg/dl (Negative); Specific Gravity, Urine 1.015 (1.002-1.030); Urine Bilirubin Dipstick Negative (Negative); Urine Clarity Clear (Clear); Urine Urobilinogen Normal (Normal); Urine pH 6.5 (5.0 - 8.0)
[2023-01-08 17:27] VITALS: BP 124/76; BP 141/91; BP 146/70; PULSE 83; PULSE 91
[2023-01-08 17:27] LABS: Squamous Epithelial Cells - UA 0-5 SEEN /hpf (5-10); White Blood Cells 0-5 SEEN /hpf (0-5)
[2023-01-08 17:51] VITALS: BP 121/67; PULSE 71; RESP 16; O2SAT 100
== END 2023-01-08 17:52 | disposition home or self-care (01) ==
PROVIDERS: Emergency Provider Emergency Medicine; PCP Student in an Organized Health Care Education/Training Program; Visit Provider Emergency Medicine
DX: O99.891 Other specified diseases and conditions complicating pregnancy (principal); R10.9 Unspecified abdominal pain; R51.9 Headache, unspecified; R55 Syncope and collapse; Z3A.13 13 weeks gestation of pregnancy
CPT/HCPCS: 81001; 87086; 87088; 99284

== ENCOUNTER 2023-04-27 16:30 | Outpatient (CLI) | payer MEDICAID, SELFPAY ==
--- OUTSIDE RECORDS SUMMARY | 2023-04-27 16:47 | XMS RPT_ITS | CCD ---
Author Name Unknown Address [address] [place] [address] Organization [facility] Care Team Providers Care Telegraph Mechanic Name Role Phone KEYANNA PATEL Unavailable Unavailable PHYSICIAN, NONE Unavailable Unavailable PROVIDER, UNKNOWN Attending Unavailable PROVIDER, UNKNOWN Referring Unavailable No, PCP Primary Care Unavailable RIA KIDD, DR CARBAJAL Primary Care Physician [phone] Kaylyn Broderick PT Unavailable Unavailable AYLIN BALTAZAR DO Attending Unavailable RIA KIDD, DR CARBAJAL Primary Care Unavailable Raven Mcknight DO Primary Care Provider MARITA RIVAS Attending Unavailable RAVEN MCKNIGHT Primary Care Unavailable ANNIE MABRY, VICENTE Referring Unavail able RIA, RAVEN Primary Care Unavailable NEIVANA MABRY, VICENTE Referring Unavail able KARL GUZMÁN Attending Unavailable RAVEN MCKNIGHT Primary Care Unavailable NEIVANA MABRY, VICENTE Referring Unavail able ROMSAMMIE, RAVEN Primary Care Unavailable ROMAR, RAVEN Primary Care Unavailable ANNIE MABRY, VICENTE Attending Unavail able RIA, RAVEN Primary Care Unavailable ROMAR, RAVEN Primary Care Unavailable MACARENA COHEN Referring Unavailable NEIVANA MABRY, VICENTE Referring Unavail able RAVEN MCKNIGHT Primary Care Unavailable MARLEY GONZALEZ Attending Unavailable NEIVANA MABRY, VICENTE Referring Unavail able CURLYAR, RAVEN Primary Care Unavailable MACARENA COHEN Attending Unavailable MARITA RIVAS Referring Unavailable RAVEN MCKNIGHT Primary Care Unavailable Allergies Allergy Classification Reported Allergen(s) Allergy Type Date of Onset Reaction(s) Facility (13 sources) Acetaminophen / HYDROcodone; Translations: [acetaminophen-hy drocodone] Drug Allergy 9 Eruption of skin (disorder), Rash [facility] (1 source) Acetaminophen / HYDROcodone; Translations: [HYDROCODONE-ACET AMINOPHEN] Drug Allergy 9 [facility] Medications Completed/Discontinued Medications Medication Drug Class(es) Dates Sig (Normalized) Sig (Original) Ethinyl Estradiol / norgestimate (3 sources) Progestin, Estrogen Start: 08-13-2018 End: 01-14-2023 take 1 tablet by mouth once daily Norgestimate-Ethiny l Estradiol (ORTHO TRI-CYCLEN LO, 28,) 0.18/0.215/0.25 mg-25 mcg tab Take 1 tablet by mouth once daily. 1 Package 3 08/13/2018 01/14/2023 Discontinued Problems Active Problems Problem Classification Problem Date Documented Da te Episodic/Chronic Abdominal pain (4 sources) Abdominal pain; Translations: [Pelvic and perineal pain] Onset: 3 09-19-2020 Episodic Allergic reactions (2 sources) Allergy status to narcotic agent status; Translations: [Allergy status to narcotic agent status] Onset: Episodic Anxiety disorders (2 sources) Panic attack 12-24-2020 Chronic Conditions associated with dizziness or vertigo (2 sources) Dizziness 07-30-2020 Episodic Gastrointestinal hemorrhage (2 sources) Rectal hemorrhage 09-19-2020 Episodic Genitourinary symptoms and ill-defined conditions (2 sources) Increased frequency of urination 08-24-2020 Episodic Headache; including migraine (4 sources) Migraine; Translations: [Migraine, unspecified, not intractable, without status migrainosus] Onset: 3 07-25-2020 Chronic Malaise and fatigue (2 sources) Fatigue 07-30-2020 Episodic Miscellaneous mental health disorders (2 sources) 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 Mood disorders (2 sources) Recurrent major depressive episodes, mild 07-25-2020 Chronic Nonspecific chest pain (2 sources) Musculoskeletal chest pain 08-15-2020 Episodic Nutritional deficiencies (4 sources) Cobalamin deficiency; Translations: [Iron deficiency] 08-16-2020 Episodic Other and unspecified benign neoplasm (2 sources) Benign neoplasm of face 07-25-2020 Episodic Other complications of (16 sources) Maternal obesity complicating , childbirth and the puerperium, antepartum; Translations: [Obesity complicating , unspecified trimester] Onset: 3 01-12-2023 Chronic Other complications of (1 source) Obesity complicating , unspecified trimester; Translations: [Other obesity affecting , antepartum] Onset: 3 Chronic Other complications of (13 sources) Nausea and vomiting; Translations: [Vomiting of , unspecified] Onset: 3 01-12-2023 Episodic Other complications of (2 sources) Pain in female pelvis; Translations: [Other specified related conditions, unspecified trimester] 03-04-2023 Episodic Other complications of (1 source) Vaginal discharge; Translations: [Other specified related conditions, second trimester] 03-04-2023 Episodic Other complications of (2 sources) High risk ; Translations: [Supervision of other high risk pregnancies, second trimester] Onset: 3 03-17-2023 Episodic Other complications of (2 sources) Gastroesophageal reflux disease in ; Translations: [Diseases of the digestive system complicating , unspecified trimester] Onset: 3 03-17-2023 Episodic Other complications of (2 sources) Other specified related conditions, unspecified trimester; Translations: [Pelvic pain in ] Onset: 3 Episodic Other complications of (1 source) Other specified related conditions, second trimester; Translations: [Vaginal discharge during in second trimester] Onset: 3 Episodic Other connective tissue disease (2 sources) Pain in right foot; Translations: [Pain in right foot] Onset: 9 Episodic Other connective tissue disease (2 sources) Other specified soft tissue disorders; Translations: [Other specified soft tissue disorders] Onset: 9 Episodic Other connective tissue disease (2 sources) Cramp in lower limb 08-15-2020 Episodic Other ear and sense organ disorders (2 sources) Bilateral tinnitus 07-25-2020 Episodic Other ear and sense organ disorders (2 sources) Lesion of left external ear canal 07-30-2020 Episodic Other endocrine disorders (2 sources) Polycystic ovarian syndrome; Translations: [Polycystic ovarian syndrome] Onset: 9 Chronic Other endocrine disorders (2 sources) Polycystic ovary syndrome 07-25-2020 Chronic Other female genital disorders (1 source) Other specified noninflammatory disorders of vagina; Translations: [Vaginal discharge during in second trimester] Onset: 3 Episodic Other gastrointestinal disorders (2 sources) Constipation 09-19-2020 Episodic Other hematologic conditions (2 sources) Microcytosis 08-15-2020 Episodic Other hematologic conditions (1 source) Hyperglobulinemia 02-12-2021 Episodic Other liver diseases (2 sources) Steatosis of liver 09-19-2020 Chronic Other liver diseases (2 sources) Alkaline phosphatase raised 07-30-2020 Episodic Other nervous system disorders (2 sources) Numbness of face 08-15-2020 Episodic Other nervous system disorders (2 sources) Numbness of toe 08-15-2020 Episodic Other nutritional; endocrine; and metabolic disorders (1 source) Other obesity; Translations: [Other obesity affecting , antepartum] Onset: 3 Chronic Other nutritional; endocrine; and metabolic disorders (11 sources) H/O: thyroid disorder; Translations: [Personal history of other endocrine, nutritional and metabolic disease] Onset: 3 01-12-2023 Episodic Other screening for suspected conditions (not mental disorders or infectious disease) (1 source) Patient encounter status; Translations: [Encounter for other specified screening] 02-17-2023 Episodic Residual codes; unclassified (11 sources) Family history of hereditary disease; Translations: [Family history of other specified conditions] Onset: 3 01-12-2023 Episodic Residual codes; unclassified (2 sources) Gestation period, 18 weeks; Translations: [18 weeks gestation of ] 02-17-2023 Episodic Residual codes; unclassified (1 source) Gestation period, 20 weeks; Translations: [20 weeks gestation of ] 03-04-2023 Episodic Residual codes; unclassified (1 source) Gestation period, 22 weeks; Translations: [22 weeks gestation of ] 03-17-2023 Episodic Residual codes; unclassified (1 source) 22 weeks gestation of ; Translations: [22 weeks gestation of ] Onset: 4 Episodic Residual codes; unclassified (1 source) 20 weeks gestation of ; Translations: [20 weeks gestation of ] Onset: Episodic Screening and history of mental health and substance abuse codes (11 sources) H/O: depression; Translations: [Personal history of other mental and behavioral disorders] Onset: 3 01-12-2023 Episodic Spondylosis; intervertebral disc disorders; other back problems (3 sources) Low back pain; Translations: [Low back pain] Episodic Thyroid disorders (2 sources) Goiter 07-30-2020 Chronic Unclassified (1 source) No additional problems on file Past or Other Problems Problem Classification Problem Date Documented Da te Episodic/Chronic Other complications of (1 source) Vomiting of , unspecified; Translations: [Nausea and vomiting in ] Onset: 01-12-2023 Episodic Other and delivery including normal (14 sources) ; Translations: [Encounter for supervision of normal , unspecified, unspecified trimester] Onset: 01-12-2023 01-12-2023 Episodic Results Test Name Value Interpretation Reference Range Facil ity Vital Signs Date Time Vital Sign Value Performing Clinician Bishop swenson 03-17-2023 10:14-0500 Body weight 119.3 kg Macarena Cohen APRN.CNM Work Phone: [facility] 03-17-2023 10:14-0500 Diastolic blood pressure 72 mm[Hg] Macarena Cohen APRN.CNM Work Phone: [facility] 03-17-2023 10:14-0500 Systolic blood pressure 116 mm[Hg] Macarena Cohen APRN.CNM Work Phone: [facility] 03-04-2023 14:24-0500 Body weight 119.3 kg Marita Rivas APRN.CRIMPER OPERATOR Work Phone: [facility] 03-04-2023 14:24-0500 Diastolic blood pressure 64 mm[Hg] Marita Rivas APRN.CRIMPER OPERATOR Work Phone: [facility] 03-04-2023 14:24-0500 Systolic blood pressure 118 mm[Hg] Marita Rivas APRN.CRIMPER OPERATOR Work Phone: [facility] 02-17-2023 10:14-0500 Body weight 119.75 kg Karl Guzmán MD Work Phone: [facility] 02-17-2023 10:14-0500 Diastolic blood pressure 82 mm[Hg] Karl Guzmán MD Work Phone: [facility] 02-17-2023 10:14-0500 Systolic blood pressure 126 mm[Hg] Karl Guzmán MD Work Phone: [facility] 01-14-2023 15:08-0400 Body height 165.1 cm Vicente Mabry MD Work Phone: [facility] 01-14-2023 15:08-0400 Body weight 121.11 kg Vicente Mabry MD Work Phone: [facility] 01-14-2023 15:08-0400 Diastolic blood pressure 68 mm[Hg] Vicente Mabry MD Work Phone: [facility] 01-14-2023 15:08-0400 Systolic blood pressure 126 mm[Hg] Vicente Mabry MD Work Phone: [facility] Encounters Encounter Date Encounter Type Care Provider Facility Start: 04-14-2023 End: 04-15-2023 ambulatory RAVEN MCKNIGHT Facility:[facility] Start: 03-17-2023 End: 03-17-2023 ambulatory VICENTE MABRY Facility:[facility] Start: 03-17-2023 End: 03-17-2023 Patient encounter procedure Macarena Cohen APRN.CNM Work Phone: OB/Gynecology Procedures Date Procedure Procedure Detail Performing Clinician Start: 03-17-2023 URINE OB DIP B/O Ami Cohen APRN.CNM Work Phone: Start: 03-04-2023 URINE OB DIP B/O Marita Rivas APRN.CRIMPER OPERATOR Work Phone: Start: 02-17-2023 URINE OB DIP B/O Katia Guzmán MD Work Phone: Start: 02-17-2023 Us preg uterus after 1st trimest 04/06 gestation Vicente Mabry MD Work Phone: Start: 11-21-2022 Antibody screen Vicente Mabry MD Work Phone: Start: 11-21-2022 Bacteria identified in Urine by Culture [facility] Provider Start: 11-21-2022 CBC panel - Blood by Automated count [facility] Provider Start: 11-21-2022 GONORRHEA/CHLAMYDIA NAAT [facility] Provider Start: 11-21-2022 HEP B SURF AG SCRN [facility] Provider Start: 11-21-2022 HEPATITIS C ANTIBODY IA WITH CONFIRMATION [facility] Provider Start: 11-21-2022 HIV 1 2 COMBO(AG/AB) ,WITH REFLEX TO DIFFERENTIATION [facility] Provider Start: 11-21-2022 RPR SCREEN [facility] Provid er Start: 11-21-2022 RUBELLA IGG AB [facility] Prov ider Start: 11-21-2022 TYPE + SCREEN (EXTERNAL LAB) [facility] Provider Start: 11-21-2022 VARICELLA ZOSTER IGG [facility] Provider Start: 04-06-2020 Surgery (qualifier value) DR RAVEN MCKNIGHT DO Plan of Treatment Date Care Activity Detail Author Start: 06-18-2025 Pap Testing Pap Testing [facility] Start: 06-18-2025 Screening for malign ant neoplasm of cervix Pap Testing [facility] Start: 03-17-2023 End: 06-16-2023 CBC W Auto Differential panel - Blood CBC + DIFF Lab Routine Other obesity affecting , antepartum 22 weeks gestation of Expected: 03/17/2023, Expires: 06/16/2023 [facility] Work Phone: Immunizations Immunization Date Immunization Notes Care Provider Fa cili 01-28-2012 influenza, seasonal, injectable Karl Guzmán MD Work Phone: [facility] Work Phone: 01-28-2012 influenza virus vaccine, unspecified formulation Nurse Wstr Work Phone: [facility] 09-17-2010 human papilloma viru s vaccine, quadrivalent Karl Guzmán MD Work Phone: [facility] Work Phone: 08-13-2010 human papilloma viru s vaccine, quadrivalent Karl Guzmán MD Work Phone: [facility] Work Phone: 03-05-1999 hepatitis B vaccine, pediatric or pediatric/adolescent dosage Karl Guzmán MD Work Phone: [facility] Work Phone: 12-27-1998 diphtheria, tetanus toxoids and acellular pertussis vaccine, unspecified formulation Karl Guzmán MD Work Phone: [facility] Work Phone: 12-27-1998 hepatitis B vaccine, pediatric or pediatric/adolescent dosage Karl Guzmán MD Work Phone: [facility] Work Phone: 12-27-1998 measles, mumps and rubella virus vaccine Karl Guzmán MD Work Phone: [facility] Work Phone: 10-16-1994 diphtheria, tetanus toxoids and pertussis vaccine Karl Guzmán MD Work Phone: [facility] Work Phone: 10-16-1994 haemophilus influenz ae type b vaccine, conjugate unspecified formulation Karl Guzmán MD Work Phone: [facility] Work Phone: 10-16-1994 measles, mumps and rubella virus vaccine Karl Guzmán MD Work Phone: [facility] Work Phone: 10-16-1994 trivalent poliovirus vaccine, live, oral Karl Guzmán MD Work Phone: [facility] Work Phone: 01-12-1994 diphtheria, tetanus toxoids and pertussis vaccine Karl Guzmán MD Work Phone: [facility] Work Phone: 01-12-1994 haemophilus influenz ae type b vaccine, conjugate unspecified formulation Karl Guzmán MD Work Phone: [facility] Work Phone: 01-12-1994 trivalent poliovirus vaccine, live, oral Karl Guzmán MD Work Phone: [facility] Work Phone: 1993 diphtheria, tetanus toxoids and pertussis vaccine Karl Guzmán MD Work Phone: [facility] Work Phone: 1993 haemophilus influenz ae type b vaccine, conjugate unspecified formulation Karl Guzmán MD Work Phone: [facility] Work Phone: 1993 trivalent poliovirus vaccine, live, oral Karl Guzmán MD Work Phone: [facility] Work Phone: 1993 diphtheria, tetanus toxoids and pertussis vaccine Karl Guzmán MD Work Phone: [facility] Work Phone: 1993 haemophilus influenz ae type b vaccine, conjugate unspecified formulation Karl Guzmán MD Work Phone: [facility] Work Phone: 1993 trivalent poliovirus vaccine, live, oral Karl Guzmán MD Work Phone: [facility] Work Phone: Payers Date Payer Category Payer Medicaid ANTHEM MEDICAID AN[employer]M [employer] [place] [id number] 2022-Present [phone] [address] [place] [address] Medicaid [id number] 2022 Medicaid [id number] 2021 Unknown [id number] 2018 Self-pay 1993 Unknown [id number] 1993 Unknown [id number] 1993 Unknown [id number] Unknown Social History Date Type Detail Facility Start: 07-25-2020 End: 01-14-2023 Never smoked tobacco (finding) [facility] Sex Assigned At [facility] Start: 08-13-2018 End: 01-14-2023 Tobacco use and exposure Smokeless tobacco non-user [facility] Work Phone: Start: 12-19-2022 Alcohol intake Lifetime non-d ree (finding) [facility] Start: 08-13-2018 End: 03-13-2020 History of Social function [facility] Work Phone: Start: 08-13-2018 End: 03-13-2020 Alcohol Use Disorder Identification Test - Consumption [AUDIT-C] [facility] Work Phone: How often to you hav e a drink containing alcohol? Never [facility] Work Phone: Average Number of Drinks Not on file [facility] Start: 10-25-2022 [facility] Start: 1995 Sex Assigned At Not on file [facility] Start: 01-12-2023 End: 03-17-2023 Alcohol intake Ex-drinker (finding) [facility] Start: 01-12-2023 Education 21 [facility] Start: 01-12-2023 Alcohol Comment rarely [facility] Goals Date Patient Goal Desired Activity /State Personal health goal Clinical Notes 07-30-2020 to 03-17-2023 Quick Notes - Macarena Cohen APRN.CNM - 03/17/2023 10:46 AM ESTPatient InstructionsTelephone Encounter - Leslie Murphy RN - 03/06/2023 8:42 AM ESTPatient InstructionsPatient Instructions Note Date & Type Note Facility 03-17-2023 Miscellaneous Notes MAURICIO-S: Alfonzo Myrick is a 27 year old female who presents at 07/18/2023, by Ultrasound Gestational Age: 22w 3d for a routine visit. Denies chest pain, shortness of breath, vaginal bleeding, leakage of fluid, or dysuria. Has history of Migraines without Aura. In past week had two headaches, one lasted all day. Took no meds, denies visual changes, cool washcloth and rested all day til went away. Second VILLALTA lasted 1 hr, relieved on its own. Feeling bilateral groin pain, Like I'm ripping apart . Has ordered a belly band. Also notes occasional Eye fluttering-like when you stare at the sun and see spots afterward. Not associated with movement, not in shower at time, nor headache. Denies ringing in ears, swelling, face, hands, left upper quadrant pain. Yearly eye appointment scheduled for May. Reports left side of tongue feels sore, like blistered for past 2 weeks. Has history of tumor behind front 2 teeth last , tumor removed 1 wk prior to delivery last time. Has not seen dentist during this . O: See flow sheet Gen: No apparent distress Abd: Gravid, nontender TWG 5 lb S=D A:\ 1. Other obesity affecting , antepartum -TWG 5 lb 2. 22 weeks gestation of 3. Supervision of other high risk pregnancies, second trimester - 4. Migraine without status migrainosus, not intractable, unspecified migraine type 5. Gastroesophageal reflux in 6. Nausea and vomiting in P: 1) PTL / Preeclampsia precautions reviewed and when to call 2) RTO 4 weeks 3) Ensure adequate hydration daily, make appointment to see eye doctor. Call if headaches worsen or er 4) Pepcid 40 mg once daily. Script sent 5) F/U with Dentist for mouth issues. Freda [employer] INTERN NOTE OF PERSONAL INVOLVEMENT IN CARE: I have interviewed the patient and updated the midwifery student's PFS history, and ROS as necessary. I have re-performed the HPI, Physical Examination, Assessment and Plan. Macarena Cohen APRN.CNM documented in this encounter [facility] 03-17-2023 Instructions Demetrius Taylor [facility]ma - 03/17/2023 10:12 AM EST SEQUENTIAL SCREENINGS The [facility] offers sequential screenings for women who are interested in screenings for chromosomal abnormalities and certain defects during a . The sequential screen combines ultrasound and blood tests to determine the risk of chromosomal abnormalities, including Down's Syndrome (Trisomy 21) and Trisomy 18, as well as open neural tube defects including spina bifida. Ultrasound examination is performed between 11 weeks and 13 weeks gestational age. Blood tests are drawn after the ultrasound and again later in the between 15 and 21 weeks gestational age. Please let your physician know if you are interested in this testing. It will require an appointment with our manufacturing engineering technician. This is not an ultrasound performed by a physician in our office during a routine visit. SIGNS AND SYMPTOMS OF LABOR 1. Contractions every 10 minutes or more often 2. Clear, pink, or brownish fluid (water) leaking from vagina 3. Feeling that baby is pushing down, pressure 4. Low, dull backache 5. Cramps that feel like a period 6. Cramps with or without diarrhea If you notice any of the above symptoms, contact our office at [phone] and ask to speak with a nurse. After hours, you can call doctors registry at [phone] OR call [facility] at [phone] and ask to have the doctor power plant operations manager paged. If you consider this an emergency, dial 8-9-8 or go to your nearest emergency department. NEED HELP? Are you dealing with a violent or abusive relationship? Are you a victim of rape or sexual assult? Call [facility] [place] ([facility] 24 hour Crisis Hotline: 333.879.6972 or 749-863-2586. MANUAL Your Guide to a Healthy manual is now on-line. Visit [email or web address] to download your free copy documented in this encounter [facility] 03-06-2023 Miscellaneous Notes Patient notified. Leslie Murphy RN Belly band may help. Will notify with urine culture results once we know. Order placed. May need to see chiropractor too. Slow movements recommended and rest. To notify with any consistent cramps or contractions. Marita Rivas APRN.CNP Spoke with patient. Notified of results. She is still having the pain. Last night after she went to the bathroom and laid down, she couldn't lay on her left side because of the pain. Agreeable to leaving another urine sample at the lab if provider recommends. She may invest in a belly band as well. Urine culture order pending. Leslie Murphy RN Please notify patient: Urine culture showed mixed contaminants - likely not a good sample. If she is still symptomatic, she can always come into the lab for a repeat culture. Vaginal cultures are negative. How is she feeling? Marita Rivas APRN.ROCIO documented in this encounter [facility] 03-04-2023 Miscellaneous Notes S: Summer is a 27 year old female who presents at 20w4d for a problem visit of bilateral pelvic pain. Can feel it coming on, and then once it's completely present, it stops her from doing anything. A cool wash cloth helps some. Does not take any medication for it. Was happening randomly, but now occurring once a day. Lasts anywhere from 10-15 minutes. No consistent cramps or contractions. Feeling baby move. Also notes thick white discharge. No bleeding. Concerned that it may be stress related. O: See flow sheet Gen: No apparent distress Abd: Gravid, nontender, S=D No signs of acute abdominal distress. ASSESSMENT/PLAN: Pelvic pain during - ICD9: 646.80, 625.9, ICD10: O26.899, R10.2 (primary diagnosis) - URINE CULTURE - BACT/SERA VAG GRAM STAIN - Patient denies concerns for STDs - PTL precautions reviewed - Hydration and slow movements encouraged 20 weeks gestation of - ICD9: V22.2, ICD10: Z3A.20 - Patient voiced concerned about low weight gain during - Discussed 11-20 lb weight gain, with most occurring in the 3rd trimester - Continue to monitor - URINE OB DIP B/O Vaginal discharge during in second trimester - ICD9: 646.83, 623.5, ICD10: O26.892, N89.8 -BV/yeast testing done today Marita Rivas APRN.CNP Medical Decision Making: Problems: Moderate: New problem with uncertain prognosis Data: Unique test(s) ordered: 2 Risk: Low: Low risk from testing/treatment Medical Decision Making Level: 3 - Low documented in this encounter [facility] 03-04-2023 Instructions Rocio Kate LPN - 03/04/2023 2:25 PM EST SEQUENTIAL SCREENINGS The [facility] offers sequential screenings for women who are interested in screenings for chromosomal abnormalities and certain defects during a . The sequential screen combines ultrasound and blood tests to determine the risk of chromosomal abnormalities, including Down's Syndrome (Trisomy 21) and Trisomy 18, as well as open neural tube defects including spina bifida. Ultrasound examination is performed between 11 weeks and 13 weeks gestational age. Blood tests are drawn after the ultrasound and again later in the between 15 and 21 weeks gestational age. Please let your physician know if you are interested in this testing. It will require an appointment with our manufacturing engineering technician. This is not an ultrasound performed by a physician in our office during a routine visit. SIGNS AND SYMPTOMS OF LABOR 1. Contractions every 10 minutes or more often 2. Clear, pink, or brownish fluid (water) leaking from vagina 3. Feeling that baby is pushing down, pressure 4. Low, dull backache 5. Cramps that feel like a period 6. Cramps with or without diarrhea If you notice any of the above symptoms, contact our office at [phone] and ask to speak with a nurse. After hours, you can call doctors registry at [phone] OR call [facility] at [phone] and ask to have the doctor power plant operations manager paged. If you consider this an emergency, dial [phone] or go to your nearest emergency department. NEED HELP? Are you dealing with a violent or abusive relationship? Are you a victim of rape or sexual assult? Call [facility] ([place]) 24 hour Crisis Hotline: 659.408.2558 or 917-612-3190. MANUAL Your Guide to a Healthy manual is now on-line. Visit [email or web address] to download your free copy documented in this encounter [facility] 02-17-2023 Miscellaneous Notes RR- VB No. LOF No. CTXS No. Movement: present. Other c/o: No. Medication list reviewed. Physical Exam See Flow Sheet Abd: soft, nontender, gravid Ext: edema: no A/P 18w3d Estimated Date of Delivery: 07/18/23 anatomy US today, results pending declines flu vaccine for today f/u in 4 weeks or prn declines aneuploidy screening ASA for preeclampsia prophylaxis. Karl Guzmán M.D. documented in this encounter [facility] 02-17-2023 Selma Orta LPN - 02/17/2023 9:45 AM EST SEQUENTIAL SCREENINGS The [facility] offers sequential screenings for women who are interested in screenings for chromosomal abnormalities and certain defects during a . The sequential screen combines ultrasound and blood tests to determine the risk of chromosomal abnormalities, including Down's Syndrome (Trisomy 21) and Trisomy 18, as well as open neural tube defects including spina bifida. Ultrasound examination is performed between 11 weeks and 13 weeks gestational age. Blood tests are drawn after the ultrasound and again later in the between 15 and 21 weeks gestational age. Please let your physician know if you are interested in this testing. It will require an appointment with our manufacturing engineering technician. This is not an ultrasound performed by a physician in our office during a routine visit. SIGNS AND SYMPTOMS OF LABOR 1. Contractions every 10 minutes or more often 2. Clear, pink, or brownish fluid (water) leaking from vagina 3. Feeling that baby is pushing down, pressure 4. Low, dull backache 5. Cramps that feel like a period 6. Cramps with or without diarrhea If you notice any of the above symptoms, contact our office at [phone] and ask to speak with a nurse. After hours, you can call doctors registry at [phone] OR call [facility] at [phone] and ask to have the doctor power plant operations manager paged. If you consider this an emergency, dial [phone] or go to your nearest emergency department. NEED HELP? Are you dealing with a violent or abusive relationship? Are you a victim of rape or sexual assult? Call [facility] ([place]) 24 hour Crisis Hotline: 741.778.7487 or 441-631-5980. MANUAL Your Guide to a Healthy manual is now on-line. Visit [email or web address] to download your free copy documented in this encounter [facility] 01-28-2023 Miscellaneous Notes Order signed and faxed. Opal Bagley RN Received breast pump order from [address] To to sign. Leslie Murphy RN documented in this encounter [facility] 01-28-2023 Miscellaneous Notes noted. Karl Guzmán MD 15w4d C/o migraine x2.5 days. Has tried extra strength tylenol, resting, cold washcloth and shower with no improvement. No vision changes, but she is having intermittent dizziness nausea and dry heaving. 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 She has not been able to push fluids because of minimal appetite and not able to drink much at al d/t nausea since it started. Rating pain 10/10 now. Advised to ER for IV fluids and meds. Patient agreed. Next visit 02/17. FYI. Opal Bagley RN documented in this encounter [facility] 01-15-2023 Miscellaneous Notes 1st risk assessment form submitted 01/15/23. documented in this encounter [facility] 01-14-2023 Note HNO ID: [id number] Author: Vicente Lane MD Service: ? Author Type: Physician Type: Progress Notes Filed: 01/14/2023 4:47 PM Note Text: INITIAL OB ASSESSMENT OB Provider: Sarahi Case RN HPI: Summer is a 27 year old Black here to establish Obstetrical Care. Patient's last menstrual period was 09/16/2022 (exact date). from OB Dating Form. Cycles irregular was unplanned but accepted Complaints: None OB History T3 L3 SAB0 IAB0 Ectopic0 Multiple0 Live Births3 # 1 - Date: 12/05/11, Sex: Male, Weight: 8 lb 4 oz (3.742 kg), GA: 40w2d, Delivery: Vaginal, Spontaneous, Apgar1: None, Apgar5: None, Living: Living, Comments: admitted at 36 weeks for threatened PTL, Cytotec induction for NRFHRP # 2 - Date: 10/10/13, Sex: Male, Weight: 7 lb 8 oz (3.402 kg), GA: 39w0d, Delivery: Vaginal, Spontaneous, Apgar1: None, Apgar5: None, Living: Living, Comments: Induced due to decreased movement,CANx1 # 3 - Date: 06/22/20, Sex: Male, Weight: 8 lb 2 oz (3.685 kg), GA: 39w0d, Delivery: Vaginal, Spontaneous, Apgar1: 8, Apgar5: 8, Living: Living, Comments: bedrest at 3 months for 2 weeks due to bleeding, Covid during ,EBL 400mL - Methergine x1, no lacerations # 4 - Date: None, Sex: None, Weight: None, GA: None, Delivery: None, Apgar1: None, Apgar5: None, Living: None, Comments: None Previous history: Prior : never History of 4th degree laceration: No History of shoulder dystocia: No History of Hypertensive disorders including pre-eclampsia, chronic hypertension or gestational hypertension: No History of gestational diabetes: No Patient's Risk Screening for delivery: Have you had a prior zamora between 20w and 36w6d?: No MEDICAL/PSYCHOSOCIAL HISTORY: History of hemorrhage or bleeding concerns: No Thyroid Disease: No History of chronic hypertension: No History of pre-existing diabetes: No No results found for: ABORHD No weight on file for this encounter. History of abnormal pap: yes Prior treatment for cervical dysplasia: colposcopy only. History of STDs: None Tobacco use: No Caffeine use: Yes drinks decaff and frappachino occasionally Drug use: No Alcohol use: No Multivitamin with Folic acid: Yes Latter Day or heritage: No Would refuse blood transfusion if medically necessary: No Are you currently employed? 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 I don't have enough money to pay my bills: Often Within the past 12 months, have you worried that your food would run out before you had money to buy more: Never In the past 12 months, has lack of reliable transportation kept you from going to medical appointments or work, or from keeping things needed for daily living: Never In the past 12 months, have you had any concerns about having a place to live, or about the condition or quality of your housing: Never Are there any cultural or spiritual needs we should be aware of: No Depression/Anxiety Screening: admits to symptoms of depression. OB Depression and Anxiety Screening- This Encounter (since 01/11/2023) None Genetic Screening: Partner present: No Patient verbalized knowledge of partner family health history: No Do you or your partner have any personal or family history of defects not previously discussed: No Do you have history of a complicated by anomaly, genetic condition, or demise: No ACOG Recommended Screening Screening for early gestational diabetes testing: Criteria for early testing requires elevated BMI plus one other risk factor: No weight on file for this encounter. (risk factor if > than 25 or 23 in Americans) Additional risk factors: None She does meet ACOG criteria for early gestational DM screening. Screening for low dose aspirin use for the prevention of pre-eclampsia: Low dose aspirin should be considered if the patient has one high or two moderate risk factors: High risk factors: None Moderate risk ractors: Obesity (body mass index greater than 30) She does not take low dose ASA from previous providerdose ASA Marital Status:Single Partner: Name: Tad Patel Age: 33 Occupation: unemployed Gender: Male History of STDs: None PAST MEDICAL HISTORY PAST MEDICAL HISTORY Diagnosis Date Abnormal glandular Papanicolaou smear of cervix 2020 PCOS (polycystic ovarian syndrome) depression 2020 Thyroid nodule 2020 PAST SURGICAL HISTORY PAST SURGICAL HISTORY Procedure Laterality Date COLPOSCOPY 03/13/2021 for low grade p (more content not included)... [facility] 01-14-2023 History of Presen t illness Narrative Images from the original note were not included. INITIAL OB ASSESSMENT OB Provider: Sarahi Case RN HPI: Alfonzo is a 27 year old Black here to establish Obstetrical Care. Patient's last menstrual period was 09/16/2022 (exact date). from OB Dating Form. Cycles irregular was unplanned but accepted Complaints: None OB History T3 L3 SAB0 IAB0 Ectopic0 Multiple0 Live Births3 # 1 - Date: 12/05/11, Sex: Male, Weight: 8 lb 4 oz (3.742 kg), GA: 40w2d, Delivery: Vaginal, Spontaneous, Apgar1: None, Apgar5: None, Living: Living, Comments: admitted at 36 weeks for threatened PTL, Cytotec induction for NRFHRP # 2 - Date: 10/10/13, Sex: Male, Weight: 7 lb 8 oz (3.402 kg), GA: 39w0d, Delivery: Vaginal, Spontaneous, Apgar1: None, Apgar5: None, Living: Living, Comments: Induced due to decreased movement,CANx1 # 3 - Date: 06/22/20, Sex: Male, Weight: 8 lb 2 oz (3.685 kg), GA: 39w0d, Delivery: Vaginal, Spontaneous, Apgar1: 8, Apgar5: 8, Living: Living, Comments: bedrest at 3 months for 2 weeks due to bleeding, Covid during ,EBL 400mL - Methergine x1, no lacerations # 4 - Date: None, Sex: None, Weight: None, GA: None, Delivery: None, Apgar1: None, Apgar5: None, Living: None, Comments: None Previous history: Prior : never History of 4th degree laceration: No History of shoulder dystocia: No History of Hypertensive disorders including pre-eclampsia, chronic hypertension or gestational hypertension: No History of gestational diabetes: No Patient's Risk Screening for delivery: Have you had a prior zamora between 20w and 36w6d?: No MEDICAL/PSYCHOSOCIAL HISTORY: History of hemorrhage or bleeding concerns: No Thyroid Disease: No History of chronic hypertension: No History of pre-existing diabetes: No No results found for: ABORHD No weight on file for this encounter. History of abnormal pap: yes Prior treatment for cervical dysplasia: colposcopy only. History of STDs: None Tobacco use: No Caffeine use: Yes drinks decaff and frappachino occasionally Drug use: No Alcohol use: No Multivitamin with Folic acid: Yes Latter Day or heritage: No Would refuse blood transfusion if medically necessary: No Are you currently employed? 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 I don't have enough money to pay my bills: Often Within the past 12 months, have you worried that your food would run out before you had money to buy more: Never In the past 12 months, has lack of reliable transportation kept you from going to medical appointments or work, or from keeping things needed for daily living: Never In the past 12 months, have you had any concerns about having a place to live, or about the condition or quality of your housing: Never Are there any cultural or spiritual needs we should be aware of: No Depression/Anxiety Screening: admits to symptoms of depression. OB Depression and Anxiety Screening- This Encounter (since 01/11/2023) None Genetic Screening: Partner present: No Patient verbalized knowledge of partner family health history: No Do you or your partner have any personal or family history of defects not previously discussed: No Do you have history of a complicated by anomaly, genetic condition, or demise: No ACOG Recommended Screening Screening for early gestational diabetes testing: Criteria for early testing requires elevated BMI plus one other risk factor: No weight on file for this encounter. (risk factor if > than 25 or 23 in Americans) Additional risk factors: None She does meet ACOG criteria for early gestational DM screening. Screening for low dose aspirin use for the prevention of pre-eclampsia: Low dose aspirin should be considered if the patient has one high or two moderate risk factors: High risk factors: None Moderate risk ractors: Obesity (body mass index greater than 30) She does not take low dose ASA from previous providerdose ASA Marital Status:Single Partner: Name: Tad Patel Age: 33 Occupation: unemployed Gender: Male History of STDs: None PAST MEDICAL HISTORY PAST MEDICAL HISTORY Diagnosis Date Abnormal glandular Papanicolaou smear of cervix 2020 PCOS (polycystic ovarian syndrome) depression 2020 Thyroid nodule 2020 PAST SURGICAL HISTORY PAST SURGICAL HISTORY Procedure Laterality Date COLPOSCOPY 03/13/2021 for low grade pap - ROLF 1 on biopsy DENTAL SURGERY PROCEDURE 2020 tumor removal from behind 2 front teeth CURRENT MEDICATIONS Current Outpatient Medications Medication Sig Dispense Refill VIT [id number] ORAL Take by mouth. Norgestimate-Ethinyl Estradiol (ORTHO TRI-CYCLEN LO, 28,) 0.18/0.215/0.25 mg-25 mcg tab Take 1 tablet by mouth once daily. (Patient not taking: Reported on 01/12/2023) 1 Package 3 No current facility-administered medications for this visit. Allergies As of Date: 01/12/2023 Allergen Noted Reaction VICODIN [HYDROCODONE-ACETAMINOPHE*2018 Rash Fully Assessed 01/12/2023 Does patient have penicillin allergy: No REVIEW OF SYSTEMS: GENERAL: Negative for: Fever or Chills HEENT: Negative for: Headache, Impaired Vision, Ringing in Ears, Nosebleeds NECK: Negative for: Swelling, Pain, Stiffness RESPIRATORY: Negative for: Cough, Shortness of breath, Wheezing GASTROINTESTINAL: Negative for: Heartburn, Constipation, Diarrhea, Blood in stool, Vomiting MUSCULOSKELETAL: Negative for: Muscle or joint pain, stiffness, Joint swelling NEUROLOGIC/PSYCHIATRIC: Negative for: Weakness, Paralysis, Numbness, Tingling, Tremor,Memory loss SKIN: Negative for: Rash, Itching GENITOURINARY: Negative for: vaginal itching, vaginal discharge, hematuria or dysuria PHYSICAL EXAM: BP 126/68 Ht 5' 5 (1.65m) Wt 267 lb (121.1kg) LMP 09/16/2022 BMI 44.43 kg/(m^2). GENERAL: pleasant in no apparent distress DERMATOLOGY: Normal, without lesions, non-icteric, and non-hirsute NECK:full range of motion ABDOMEN: soft, non-tender, and no masses NEURO: alert and oriented x3,exam grossly non-focal Limited OB ultrasound exam: +FHR OB Risk Screening: Completed, no positive findings documented. SBIRT Alfonzo Myrick was given the 4's screening tool. Alfonzo answered as follows: OB Opioid Screening - Last Recorded (since 04/19/2022) Did any of your parents have a problem with alcohol or other drug use? Yes Mom and dad -ETOH Does your partner have a problem with alcohol or other drug use? No In the past, have you had difficulties in your life because of alcohol or other drugs, including prescription medications? No In the past month have you drunk any alcohol or used other drugs? No Are you taking medication for pain during the either prescribed or not? No Based on the screen and further questions, she is considered at Low risk due to:No past or current use. Plan to rescreen early third trimester. Vicente Magana MD ASSESSMENT: 27 year old at 13w4d wks gestational age PLAN: 1) Patient oriented to practice. Discussed nutrition, folic acid supplementation, dietary guidelines, exercise, smoking, alcohol, caffeine, and drug use. Discussed gestational weight gain guidelines. Discussed routine OB labs including STD/HIV. 2) Obesity (BMI >30), will order early glucose screen or Hemoglobin A1C. 3) ASA reviewed 4) declines NT and aneuploidy screening Follow up in 4 weeks or sooner prn. Vicente Magana MD documented in this encounter [facility] 01-14-2023 Instructions Amanda Ahumada Ma - 01/14/2023 3:04 PM EDT Please select the following link to access the [facility] Your Guide to a Healthy . [email or web address] documented in this encounter [facility] 01-12-2023 Note HNO ID: [id number] Author: Sarahi Case RN Service: ? Author Type: ? Type: Progress Notes Filed: 01/12/2023 11:32 AM Note Text: INITIAL OB ASSESSMENT OB Provider: Sarahi Case RN HPI: Summer is a 27 year old Black here to establish Obstetrical Care. Patient's last menstrual period was 09/16/2022 (exact date). from OB Dating Form. Cycles irregular was unplanned but accepted Complaints: None OB History T3 L3 SAB0 IAB0 Ectopic0 Multiple0 Live Births3 # 1 - Date: 12/05/11, Sex: Male, Weight: 8 lb 4 oz (3.742 kg), GA: 40w2d, Delivery: Vaginal, Spontaneous, Apgar1: None, Apgar5: None, Living: Living, Comments: admitted at 36 weeks for threatened PTL, Cytotec induction for NRFHRP # 2 - Date: 10/10/13, Sex: Male, Weight: 7 lb 8 oz (3.402 kg), GA: 39w0d, Delivery: Vaginal, Spontaneous, Apgar1: None, Apgar5: None, Living: Living, Comments: Induced due to decreased movement,CANx1 # 3 - Date: 06/22/20, Sex: Male, Weight: 8 lb 2 oz (3.685 kg), GA: 39w0d, Delivery: Vaginal, Spontaneous, Apgar1: 8, Apgar5: 8, Living: Living, Comments: bedrest at 3 months for 2 weeks due to bleeding, Covid during ,EBL 400mL - Methergine x1, no lacerations # 4 - Date: None, Sex: None, Weight: None, GA: None, Delivery: None, Apgar1: None, Apgar5: None, Living: None, Comments: None Previous history: Prior : never History of 4th degree laceration: No History of shoulder dystocia: No History of Hypertensive disorders including pre-eclampsia, chronic hypertension or gestational hypertension: No History of gestational diabetes: No Patient's Risk Screening for delivery: Have you had a prior zamora between 20w and 36w6d?: No MEDICAL/PSYCHOSOCIAL HISTORY: History of hemorrhage or bleeding concerns: No Thyroid Disease: No History of chronic hypertension: No History of pre-existing diabetes: No No results found for: ABORHD No weight on file for this encounter. History of abnormal pap: yes Prior treatment for cervical dysplasia: colposcopy only. History of STDs: None Tobacco use: No Caffeine use: Yes drinks decaff and frappachino occasionally Drug use: No Alcohol use: No Multivitamin with Folic acid: Yes Latter Day or heritage: No Would refuse blood transfusion if medically necessary: No Are you currently employed? 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 I don't have enough money to pay my bills: Often Within the past 12 months, have you worried that your food would run out before you had money to buy more: Never In the past 12 months, has lack of reliable transportation kept you from going to medical appointments or work, or from keeping things needed for daily living: Never In the past 12 months, have you had any concerns about having a place to live, or about the condition or quality of your housing: Never Are there any cultural or spiritual needs we should be aware of: No Depression/Anxiety Screening: admits to symptoms of depression. OB Depression and Anxiety Screening- This Encounter (since 01/11/2023) None Genetic Screening: Partner present: No Patient verbalized knowledge of partner family health history: No Do you or your partner have any personal or family history of defects not previously discussed: No Do you have history of a complicated by anomaly, genetic condition, or demise: No ACOG Recommended Screening Screening for early gestational diabetes testing: Criteria for early testing requires elevated BMI plus one other risk factor: No weight on file for this encounter. (risk factor if > than 25 or 23 in Americans) Additional risk factors: None She does meet ACOG criteria for early gestational DM screening. Screening for low dose aspirin use for the prevention of pre-eclampsia: Low dose aspirin should be considered if the patient has one high or two moderate risk factors: High risk factors: None Moderate risk ractors: Obesity (body mass index greater than 30) She does not take low dose ASA from previous providerdose ASA Marital Status:Single Partner: Name: Tad Patel Age: 33 Occupation: unemployed Gender: Male History of STDs: None PAST MEDICAL HISTORY Diagnosis Date Abnormal glandular Papanicolaou smear of cervix 2020 PCOS (polycystic ovarian syndrome) depression 2020 Thyroid nodule 2020 PAST SURGICAL HISTORY Procedure Laterality Date COLPOSCOPY 03/13/2021 for low grade pap - ROLF 1 on biopsy DENTAL SURGERY PROCEDURE 2020 tumor removal (more content not included)... [facility] 01-12-2023 Miscellaneous Notes DISTANCE HEALTH VISIT This Team Access Model visit is a phone encounter. It required patient-provider interaction for the medical decision making as documented below. I have communicated my name and active licensure. The patient's identity and physical location were verified at the time of this visit. Father of the baby is involved. He is not the father of her other children. This is an unplanned . Patient had considered when she found out she was but is getting more adjusted and even excited that the . Patient states she has been going to the care center. Patient is transferring care from [place]. We have received her medical records and they are sent to Dr. Mabry's office for review. Patient is 13 weeks 2 days-she states that that nuchal ultrasound was not offered to her at [place] and she is not interested in it today when I offer it. States she did have labor with her first child but went on to deliver at term. Denies any labor with her other children. Patient is obese.Patient is complaining of nausea and occasional vomiting in . Dietary considerations discussed . Vitamin B6 recommended. Advised patient to call/come in if she is unable to keep any food or fluids down in a 24-hour period. Pt has a history of anxiety/depression diagnosed 2 years ago . She has never taken any medication to treat it. She has had counseling at a previous [facility] but that is not available to her now. She is open to counseling. States she is feeling worried and anxious more . I did give her a referral to the counseling center and [facility]. Discussed increased risks of depression during and and importance of reporting the development or worsening of symptoms should they occur. Pt denies ever having any suicidal thoughts or tendencies or thoughts of hurting others. Patient states she was seen at [facility] ER 3 days ago for lightheadedness and lower right cramping. States that she thinks that the lightheadedness was due to nausea and vomiting. She denies any cramping since then. Recommended small frequent meals. Patient to call/come in if she develops any pain or is unable to keep any food or fluids down in a 24-hour period. Patient has a history of a thyroid nodule in 2020. She states she had an ultrasound done at that time along with thyroid labs. Denies any thyroid work-up since then. Patient has a history of LGSIL Pap in 2020 negative HPV. Patient has a son with an NMD-Neuronal migration disorder. Patient states that he did have genetic testing in [place]. Patient does not believe she has had any genetic testing done on her. Patient declines genetic carrier screening testing and aneuploidy screening.Sarahi Case RN documented in this encounter [facility] 01-12-2023 History of Presen t illness Narrative INITIAL OB ASSESSMENT OB Provider: Sarahi Case RN HPI: Alfonzo is a 27 year old Black here to establish Obstetrical Care. Patient's last menstrual period was 09/16/2022 (exact date). from OB Dating Form. Cycles irregular was unplanned but accepted Complaints: None OB History T3 L3 SAB0 IAB0 Ectopic0 Multiple0 Live Births3 # 1 - Date: 12/05/11, Sex: Male, Weight: 8 lb 4 oz (3.742 kg), GA: 40w2d, Delivery: Vaginal, Spontaneous, Apgar1: None, Apgar5: None, Living: Living, Comments: admitted at 36 weeks for threatened PTL, Cytotec induction for NRFHRP # 2 - Date: 10/10/13, Sex: Male, Weight: 7 lb 8 oz (3.402 kg), GA: 39w0d, Delivery: Vaginal, Spontaneous, Apgar1: None, Apgar5: None, Living: Living, Comments: Induced due to decreased movement,CANx1 # 3 - Date: 06/22/20, Sex: Male, Weight: 8 lb 2 oz (3.685 kg), GA: 39w0d, Delivery: Vaginal, Spontaneous, Apgar1: 8, Apgar5: 8, Living: Living, Comments: bedrest at 3 months for 2 weeks due to bleeding, Covid during ,EBL 400mL - Methergine x1, no lacerations # 4 - Date: None, Sex: None, Weight: None, GA: None, Delivery: None, Apgar1: None, Apgar5: None, Living: None, Comments: None Previous history: Prior : never History of 4th degree laceration: No History of shoulder dystocia: No History of Hypertensive disorders including pre-eclampsia, chronic hypertension or gestational hypertension: No History of gestational diabetes: No Patient's Risk Screening for delivery: Have you had a prior zamora between 20w and 36w6d?: No MEDICAL/PSYCHOSOCIAL HISTORY: History of hemorrhage or bleeding concerns: No Thyroid Disease: No History of chronic hypertension: No History of pre-existing diabetes: No No results found for: ABORHD No weight on file for this encounter. History of abnormal pap: yes Prior treatment for cervical dysplasia: colposcopy only. History of STDs: None Tobacco use: No Caffeine use: Yes drinks decaff and frappachino occasionally Drug use: No Alcohol use: No Multivitamin with Folic acid: Yes Latter Day or heritage: No Would refuse blood transfusion if medically necessary: No Are you currently employed? 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 I don't have enough money to pay my bills: Often Within the past 12 months, have you worried that your food would run out before you had money to buy more: Never In the past 12 months, has lack of reliable transportation kept you from going to medical appointments or work, or from keeping things needed for daily living: Never In the past 12 months, have you had any concerns about having a place to live, or about the condition or quality of your housing: Never Are there any cultural or spiritual needs we should be aware of: No Depression/Anxiety Screening: admits to symptoms of depression. OB Depression and Anxiety Screening- This Encounter (since 01/11/2023) None Genetic Screening: Partner present: No Patient verbalized knowledge of partner family health history: No Do you or your partner have any personal or family history of defects not previously discussed: No Do you have history of a complicated by anomaly, genetic condition, or demise: No ACOG Recommended Screening Screening for early gestational diabetes testing: Criteria for early testing requires elevated BMI plus one other risk factor: No weight on file for this encounter. (risk factor if > than 25 or 23 in Americans) Additional risk factors: None She does meet ACOG criteria for early gestational DM screening. Screening for low dose aspirin use for the prevention of pre-eclampsia: Low dose aspirin should be considered if the patient has one high or two moderate risk factors: High risk factors: None Moderate risk ractors: Obesity (body mass index greater than 30) She does not take low dose ASA from previous providerdose ASA Marital Status:Single Partner: Name: Tad Patel Age: 33 Occupation: unemployed Gender: Male History of STDs: None PAST MEDICAL HISTORY Diagnosis Date Abnormal glandular Papanicolaou smear of cervix 2020 PCOS (polycystic ovarian syndrome) depression 2020 Thyroid nodule 2020 PAST SURGICAL HISTORY Procedure Laterality Date COLPOSCOPY 03/13/2021 for low grade pap - ROLF 1 on biopsy DENTAL SURGERY PROCEDURE 2020 tumor removal from behind 2 front teeth Current Outpatient Medications Medication Sig Dispense Refill VIT 47-BFGF-TIPRI-DHA ORAL Take by mouth. Norgestimate-Ethinyl Estradiol (ORTHO TRI-CYCLEN LO, 28,) 0.18/0.215/0.25 mg-25 mcg tab Take 1 tablet by mouth once daily. (Patient not taking: Reported on 01/12/2023) 1 Package 3 No current facility-administered medications for this visit. Allergies As of Date: 01/12/2023 Allergen Noted Reaction VICODIN [HYDROCODONE-ACETAMINOPHE*2018 Rash Fully Assessed 01/12/2023 Does patient have penicillin allergy: No documented in this encounter [facility] 12-19-2022 Miscellaneous Notes Lab results received. [employer] updated. Sent all records to medical records to scan into [employer] and copy to [employer] mailbox for 01/12/23 appointment. Opal Bagley RN Received records from [place] [facility]. Sent fax requesting labs if she had them done. We only received gc/c. Opal Bagley RN documented in this encounter [facility] 07-30-2020 Evaluation + Plan note Future Scheduled TestsUS Thyroid 07/30/20 [facility] Evaluation + Plan note Future Appointments Appointment Date:02/12/2021 09:30:00 AM Scheduled Provider:RAVEN MCKNIGHT DO Location:[facility] Appointment Type:PC OV Future Scheduled TestsUS Thyroid 07/30/20 [facility] documented in this encounter [facility] note* Diagnosis Other obesity affecting , antepartum- Primary with care elsewhere, antepartum Nausea and vomiting in Unspecified vomiting of , unspecified as to episode of care documented in this encounter [facility] note* Diagnosis Other obesity affecting , antepartum- Primary 18 weeks gestation of state, incidental documented in this encounter [facility] note* Diagnosis Encounter for anatomic survey- Primary with care elsewhere, antepartum Other obesity affecting , antepartum 18 weeks gestation of state, incidental [facility] Diagnosis Pelvic pain during - Primary Other obesity affecting , antepartum 20 weeks gestation of state, incidental Vaginal discharge during in second trimester [facility] Diagnosis Pelvic pain in - Primary Other specified complication of , unspecified as to episode of care documented in this encounter [facility] note* Diagnosis Other obesity affecting , antepartum- Primary 22 weeks gestation of state, incidental Supervision of other high risk pregnancies, second trimester Migraine without status migrainosus, not intractable, unspecified migraine type Gastroesophageal reflux in Nausea and vomiting in Unspecified vomiting of , unspecified as to episode of care [facility] Narrative No data available for this section [facility] Hospital Discharge instructions No data available for this section [facility] Reason for referral (narrative)* Diagnostic Procedure Only (Routine) - Authorized Specialty Diagnoses / Procedures Referred By Annita bobo Referred To Contact [facility] Diagnoses with care elsewhere, antepartum Nausea and vomiting in Other obesity affecting , antepartum Procedures OBSTETRIC ULTRASOUND WHI US PREG UTERUS AFTER 1ST TRIME[address] GEST[address] Vicente [address] MD [address] [place] [address] [facility] [address] [place] [address] Referral ID Status Reason Start Date Expiration Date Visits Requested Visits Authorized [id number] Authorized Auto-Generat ed Referral 3 01/14/2024 1 1 [facility] for referral (narrative)* Outpatient Procedure (Routine) - Authorized Specialty Diagnoses / Procedures Referred By Contac t Referred To Contact [facility] Diagnoses Other obesity affecting , antepartum 22 weeks gestation of Supervision of other high risk pregnancies, second trimester Procedures NON-STRESS TEST NON-STRESS TEST Macarena Cohen APRN.CNM [address] [place] [address] [facility] [address] [place] [address] Referral ID Status Reason Start Date Expiration Date Visits Requested Visits Authorized [id number] Authorized Auto-Generat ed Referral 3 03/16/2024 9 1 * Diagnostic Procedure Only (Routine) - Authorized Specialty Diagnoses / Procedures Referred By Contac t Referred To Contact [facility] Diagnoses Other obesity affecting , antepartum 22 weeks gestation of Supervision of other high risk pregnancies, second trimester Procedures OBSTETRIC ULTRASOUND WHI US PREG UTERUS AFTER 1ST TRIMEST GESTATION Macarena Cohen APRN.CNM [address] [place] [address] [facility] [address] [place] [address] Referral ID Status Reason Start Date Expiration Date Visits Requested Visits Authorized [id number] Authorized Auto-Generat ed Referral 3 03/16/2024 3 1 [facility] Summary Purpose Family History No Family History Records FoundNo Family History Records FoundNo Family History Records FoundNo Family History Records FoundNo Family History Records FoundNo Family History Records Found Advance Directives No Advanced Directives Records FoundNo Advanced Directives Records FoundNo Advanced Directives Records FoundNo Advanced Directives Records FoundNo Advanced Directives Records FoundNo Advanced Directives Records Found Health Concerns Problem Noted Date Diagnosed Date [facility] Education - COMMON 01/14/2023 [place] - [place] 01/14/2023 Problem Noted Date Diagnosed Date [facility] Education - COMMON 01/14/2023 [place] - [place] 01/14/2023 Problem Noted Date Diagnosed Date [facility] Education - COMMON 01/14/2023 [place] - [place] 01/14/2023 Problem Noted Date Diagnosed Date [facility] Education - COMMON 01/14/2023 [place] - [place] 01/14/2023 Problem Noted Date Diagnosed Date [facility] Education - COMMON 01/14/2023 Education - [place] 01/14/2023 Problem Noted Date Diagnosed Date [facility] Education - [place]ON 01/14/2023 Education - [place] 01/14/2023 Problem Noted Date Diagnosed Date [facility] Education - [facility] 01/14/2023 [place] 01/14/2023 Additional Source Comments INFORMATION SOURCE (unrecogn ized section and content) DATE CREATED AUTHOR AUTHOR'S ORGANIZ ATION 06/16/2018 [facility] DATE CREATED AUTHOR AUTHOR'S ORGANIZ ATION 06/07/2020 [facility] DATE CREATED AUTHOR AUTHOR'S ORGANIZ ATION 11/13/2020 [facility] DATE CREATED AUTHOR AUTHOR'S ORGANIZ ATION 09/27/2022 [facility] DATE CREATED AUTHOR AUTHOR'S ORGANIZ ATION 04/16/2023 [facility] Source Comments (unrecognize d section and content) In the event this informatio n is protected by the Federal Confidentiality of Alcohol and Drug Abuse Patient Records regulations: The Federal rules restrict any use of the information to criminally investigate or prosecute any alcohol or drug abuse patient.[facility] the event this information is protected by the Federal Confidentiality of Alcohol and Drug Abuse Patient Records regulations: The Federal rules restrict any use of the information to criminally investigate or prosecute any alcohol or drug abuse patient.[facility] the event this information is protected by the Federal Confidentiality of Alcohol and Drug Abuse Patient Records regulations: The Federal rules restrict any use of the information to criminally investigate or prosecute any alcohol or drug abuse patient.[facility] the event this information is protected by the Federal Confidentiality of Alcohol and Drug Abuse Patient Records regulations: The Federal rules restrict any use of the information to criminally investigate or prosecute any alcohol or drug abuse patient.[facility] the event this information is protected by the Federal Confidentiality of Alcohol and Drug Abuse Patient Records regulations: The Federal rules restrict any use of the information to criminally investigate or prosecute any alcohol or drug abuse patient.[facility] the event this information is protected by the Federal Confidentiality of Alcohol and Drug Abuse Patient Records regulations: The Federal rules restrict any use of the information to criminally investigate or prosecute any alcohol or drug abuse patient.[facility] the event this information is protected by the Federal Confidentiality of Alcohol and Drug Abuse Patient Records regulations: The Federal rules restrict any use of the information to criminally investigate or prosecute any alcohol or drug abuse patient.[facility] the event this information is protected by the Federal Confidentiality of Alcohol and Drug Abuse Patient Records regulations: The Federal rules restrict any use of the information to criminally investigate or prosecute any alcohol or drug abuse patient.[facility] the event this information is protected by the Federal Confidentiality of Alcohol and Drug Abuse Patient Records regulations: The Federal rules restrict any use of the information to criminally investigate or prosecute any alcohol or drug abuse patient.[facility] the event this information is protected by the Federal Confidentiality of Alcohol and Drug Abuse Patient Records regulations: The Federal rules restrict any use of the information to criminally investigate or prosecute any alcohol or drug abuse patient.[facility] the event this information is protected by the Federal Confidentiality of Alcohol and Drug Abuse Patient Records regulations: The Federal rules restrict any use of the information to criminally investigate or prosecute any alcohol or drug abuse patient.[facility] Reason for Visit (unrecogniz ed section and content) Reason Comments Care Reason Comments Initial OB Visit Reason Comments PRAF Reason Comments Patient Update Reason Comments Breast Pump Reason Onset Date Comments Care 02/17/2023 Reason Comments US Specialty Diagnoses / Procedures Referred By Contute t Referred To Contact [facility] Diagnoses with care elsewhere, antepartum Nausea and vomiting in Other obesity affecting , antepartum Procedures OBSTETRIC ULTRASOUND WHI US PREG UTERUS AFTER 1ST TRIME[address] GESTATION Vicente Lane MD [address] [place] [address] [facility] [address] [place] [address] Referral ID Status Reason Start Date Expiration Date V isits Requested Visits Authorized [id number] Closed Auto-Generate d Referral 01/14/2023 01/14/2024 1 1 Reason Onset Date Comments Care Care 03/04/2023 Reason Onset Date Comments Care 03/17/2023 Care Teams (unrecognized sec tion and content) Telegraph Mechanic Relationship Specialty Start Date End Date Raven Mcknight DO [address] [place] [address] PCP - General Family Medicine 09/27/20 Telegraph Mechanic Relationship Specialty Start Date End Date Raven Mcknight DO [address] [place] [address] (Fax) PCP - General Family Medicine 09/27/20 Telegraph Mechanic Relationship Specialty Start Date End Date Raven Mcknight DO [address] [place] [address] (Fax) PCP - General Family Medicine 09/27/20 Telegraph Mechanic Relationship Specialty Start Date End Date Raven Mcknight DO [address] [place] [address] (Fax) PCP - General Family Medicine 09/27/20 Telegraph Mechanic Relationship Specialty Start Date End Date Raven Mcknight DO [address] [place] [address] PCP - General Family Medicine 09/27/20 Telegraph Mechanic Relationship Specialty Start Date End Date Raven Mcknight DO [address] [place] [address] (Fax) PCP - General Family Medicine 09/27/20 Telegraph Mechanic Relationship Specialty Start Date End Date Raven Mcknight DO [address] [place] [address] (Fax) PCP - General Family Medicine 09/27/20 Telegraph Mechanic Relationship Specialty Start Date End Date Raven Mcknight DO [address] [place] [address] PCP - General Family Medicine 09/27/20 FOR RECORDS PERTAINING TO PATIENTS WHO ARE OR HAVE BEEN ENROLLED IN A CHEMICAL DEPENDENCY/SUBSTANCEABUSE PROGRAM, SOME INFORMATION MAY BE OMITTED. This clinical summary was aggregated from multiple sources. Caution should be exercised in using it in the provision of clinical care. This summary normalizes information from multiple sources, and as a consequence, information in this document may materially change the coding, format and clinical context of patient data. In addition, data may be omitted in some cases. CLINICAL DECISIONS SHOULD BE BASED ON THE PRIMARY CLINICAL RECORDS. [facility] [employer] [facility]. provides no warranty or guarantee of the accuracy or completeness of information in this document.
[2023-04-27 16:55] VITALS: BMI 44.1
[2023-04-27 16:56] VITALS: BP 123/60; PULSE 90; O2SAT 98
[2023-04-27 18:26] LABS: ROM Internal Control Test YES-OK TO RESULT pt. (Internal QC); ROM Patient Test Negative (Negative)
--- NOTE | 2023-04-30 07:42 | OB.TRI.PN ---
Progress Notes Progress Note: Patient presents for decreased movement. 28w3d, ERICA: 07/17/23 Laboratory Studies: Laboratory Tests 04/27/23 Range/Units 17:52 Vag Amniotic Fld Detect Negative (Negative) NST 135, moderate, accels 10x10, no decels, reactive Assessment & Plan (1) Decreased movement: PLAN: Plan 1) Reactive NST, frequent movement upon arrival 2) Kick counts reviewed 3) D/C home Date of service 04/27/23
== END 2023-04-27 18:32 | disposition home or self-care (01) ==
LOC: WPOUT 16:31 → WP 16:32
PROVIDERS: PCP Student in an Organized Health Care Education/Training Program; Referring Provider Advanced Practice Midwife; Visit Provider Advanced Practice Midwife
DX: O36.8130 Decreased fetal movements, third trimester, not applicable or unspecified (principal); Z3A.28 28 weeks gestation of pregnancy
CPT/HCPCS: 59025; 59050; 84112

== ENCOUNTER 2023-06-04 23:12 | Outpatient (CLI) | payer MEDICAID, SELFPAY ==
[2023-06-04 23:29] VITALS: BMI 44.1
--- OUTSIDE RECORDS SUMMARY | 2023-06-04 23:29 | XMS RPT_ITS | CCD ---
Author Name Unknown Address [address] [place] [address] Organization [facility] Care Team Providers Care Equipment Sterilizer Name Role Phone KEYANNA PATEL Unavailable Unavailable PHYSICIAN, NONE Unavailable Unavailable PROVIDER, UNKNOWN Attending Unavailable PROVIDER, UNKNOWN Referring Unavailable No, PCP Primary Care Unavailable RIA KIDD, DR CARBAJAL Primary Care Physician [phone] [place] PT Kaylyn Unavailable Unavailable AYLIN BALTAZAR DO Attending Unavailable RIA KIDD, DR CARBAJAL Primary Care Unavailable Raven Mcknight DO Primary Care Provider [phone] RIA RAVEN Primary Care Unavailable NEYFERNIET RAGHAVENDRA, VICENTE Referring Unavail able KARL GUZMÁN Attending Unavailable CURLYAR, RAVEN Primary Care Unavailable MACARENA COHEN Referring Unavailable ROMAR, RAVEN Primary Care Unavailable MARLEY GONZALEZ Attending Unavailable NEYFERNIET MABRY, VICENTE Referring Unavail able ROMAR, RAVEN Primary Care Unavailable MACARENA COHEN Attending Unavailable NECHERT MABRY, VICENTE Referring Unavail able MARITA RIVAS Referring Unavailable ROMAR, RAVEN Primary Care Unavailable MARITA RIVAS Attending Unavailable ROMAR, RAVEN Primary Care Unavailable ROMAR, RAVEN Primary Care Unavailable NEYHART MABRY, VICENTE Referring Unavail able KARL GUZMÁN Attending Unavailable RIA, RAVEN Primary Care Unavailable NECHERT MABRY, VICENTE Referring Unavail able ROMAR, RAVEN Primary Care Unavailable NECHERT MABRY, VICENTE Referring Unavail able ROMAR, RAVEN Primary Care Unavailable NEIVANA REISNTOSH, VICENTE Attending Unavail able ROMAR, RAVEN Primary Care Unavailable EULA JERNIGAN Attending Unavailable ROMAR, RAVEN Primary Care Unavailable MACARENA COHEN Referring Unavailable ROMAR, RAVEN Primary Care Unavailable Allergies Allergy Classification Reported Allergen(s) Allergy Type Date of Onset Reaction(s) Facility (17 sources) Acetaminophen / HYDROcodone; Translations: [acetaminophen-hy drocodone] Drug Allergy 9 Eruption of skin (disorder), Rash [facility] (1 source) Acetaminophen / HYDROcodone; Translations: [HYDROCODONE-ACET AMINOPHEN] Drug Allergy 9 [facility] Repository Medications Completed/Discontinued Medications Medication Drug Class(es) [...] [Allergy status to narcotic agent status] Onset: 9 Episodic Anxiety disorders (2 sources) Panic attack 12-24-2020 Chronic Conditions associated with dizziness or vertigo (2 sources) Dizziness 07-30-2020 Episodic Gastrointestinal hemorrhage (2 sources) Rectal hemorrhage 09-19-2020 Episodic Genitourinary symptoms and ill-defined conditions (2 sources) Increased frequency of urination 08-24-2020 Episodic Headache; including migraine (8 sources) Migraine; Translations: [Migraine, unspecified, not intractable, [...] of face 07-25-2020 Episodic Other complications of (20 sources) Maternal obesity complicating , childbirth and the puerperium, antepartum; Translations: [Obesity complicating , unspecified trimester] Onset: 3 01-12-2023 Chronic Other complications of (1 source) Obesity complicating , unspecified trimester; Translations: [Other obesity affecting , antepartum] Onset: 3 Chronic Other complications of (2 sources) Pain in female pelvis; Translations: [Other specified related conditions, unspecified trimester] 03-04-2023 Episodic Other complications of (1 source) Vaginal discharge; Translations: [Other specified related conditions, second trimester] 03-04-2023 Episodic Other complications of (8 sources) High risk ; Translations: [Supervision of other high risk pregnancies, second trimester] Onset: 3 03-17-2023 Episodic Other complications of (6 sources) Gastroesophageal reflux disease in ; Translations: [Diseases of the digestive system complicating , unspecified trimester] Onset: 3 03-17-2023 Episodic Other complications of (1 source) Headache; Translations: [Other specified related conditions, third trimester] 05-12-2023 Episodic Other complications of (1 source) Supervision of other high risk pregnancies, second trimester; Translations: [Supervision of other high risk pregnancies, second trimester] Onset: 3 Episodic Other complications of (2 sources) Other [...] affecting , antepartum] Onset: 3 Chronic Other screening for suspected conditions (not mental disorders or infectious disease) (2 sources) Patient encounter status; Translations: [Encounter for other specified screening] 02-17-2023 Episodic Residual codes; unclassified (2 sources) Gestation period, 18 weeks; Translations: [18 weeks gestation of ] 02-17-2023 Episodic Residual codes; unclassified (1 source) Gestation period, 20 weeks; Translations: [20 weeks gestation of ] 03-04-2023 Episodic Residual codes; unclassified (1 source) Gestation period, 22 weeks; Translations: [22 weeks gestation of ] 03-17-2023 Episodic Residual codes; unclassified (1 source) Gestation period, 30 weeks; Translations: [30 weeks gestation of ] 05-12-2023 Episodic Residual codes; unclassified (2 sources) Gestation period, 32 weeks; Translations: [32 weeks gestation of ] 05-25-2023 Episodic Residual codes; unclassified (1 source) 22 weeks gestation of ; Translations: [22 weeks gestation of ] Onset: 4 Episodic Residual codes; unclassified (1 source) 20 weeks gestation of ; Translations: [20 weeks gestation of ] Onset: 3 Episodic Spondylosis; intervertebral disc disorders; other back problems (3 sources) Low back pain; Translations: [Low back pain] Episodic Thyroid disorders (2 sources) Goiter 07-30-2020 Chronic Unclassified (1 source) No additional problems on file Past or Other Problems Problem Classification Problem Date Documented Da te Episodic/Chronic Other complications of (17 sources) Nausea and vomiting; Translations: [Vomiting of , unspecified] Onset: 01-12-2023 01-12-2023 Episodic Other complications of (1 source) Vomiting of , unspecified; Translations: [Nausea and vomiting in ] Onset: 01-12-2023 Episodic Other nutritional; endocrine; and metabolic disorders (15 sources) H/O: thyroid disorder; Translations: [Personal history of other endocrine, nutritional and metabolic disease] Onset: 01-12-2023 01-12-2023 Episodic Other and delivery including normal (18 sources) ; Translations: [Encounter for supervision of normal , unspecified, unspecified trimester] Onset: 01-12-2023 01-12-2023 Episodic Residual codes; unclassified (15 sources) Family history of hereditary disease; Translations: [Family history of other specified conditions] Onset: 01-12-2023 01-12-2023 Episodic Screening and history of mental health and substance abuse codes (15 sources) H/O: depression; Translations: [Personal history of other mental and behavioral disorders] Onset: 01-12-2023 01-12-2023 Episodic Results Test Name Value Interpretation Reference Range Facil ity Vital Signs Date Time Vital Sign Value Performing Clinician Bishop swenson 05-25-2023 10:07-0500 Diastolic blood pressure 72 mm[Hg] Eula Jernigan APRN.CHERYLM Work Phone: [facility] 05-25-2023 10:07-0500 Systolic blood pressure 120 mm[Hg] Eula Plotts CUSTOMER SUPPORT ENGINEER.CNM Work Phone: [facility] 05-25-2023 09:31-0500 Body weight 121.66 kg Ob Ultrasound Work Phone: [facility] 05-12-2023 10:08-0500 Body weight 120.2 kg Karl Guzmán MD Work Phone: [facility] 05-12-2023 10:08-0500 Diastolic blood pressure 68 mm[Hg] Karl Guzmán MD Work Phone: [facility] 05-12-2023 10:08-0500 Systolic blood pressure 120 mm[Hg] Karl Guzmán MD Work Phone: [facility] 03-17-2023 10:14-0500 Body weight 119.3 kg Macarena Cohen CUSTOMER SUPPORT ENGINEER.CNM Work Phone: [facility] 03-17-2023 10:14-0500 Diastolic blood pressure 72 mm[Hg] Macarena Cohen CUSTOMER SUPPORT ENGINEER.CNM Work Phone: [facility] 03-17-2023 10:14-0500 Systolic blood pressure 116 mm[Hg] Macarena Cohen CUSTOMER SUPPORT ENGINEER.CNM Work Phone: [facility] 03-04-2023 14:24-0500 Body weight 119.3 kg Marita Haprimitivo CUSTOMER SUPPORT ENGINEER.PIER WORKER Work Phone: [facility] 03-04-2023 14:24-0500 Diastolic blood pressure 64 mm[Hg] Marita Haury CUSTOMER SUPPORT ENGINEER.PIER WORKER Work Phone: [facility] 03-04-2023 14:24-0500 Systolic blood pressure 118 mm[Hg] Marita Haury CUSTOMER SUPPORT ENGINEER.PIER WORKER Work Phone: [facility] 02-17-2023 10:14-0500 Body weight 119.75 kg Karl Guzmán MD Work Phone: [facility] 02-17-2023 10:14-0500 Diastolic blood pressure 82 mm[Hg] Karl Guzmán MD Work Phone: [facility] 02-17-2023 10:14-0500 Systolic blood pressure 126 mm[Hg] Karl Guzmán MD Work Phone: [facility] 01-14-2023 15:08-0400 Body height 165.1 cm Vciente Mabry MD Work Phone: [facility] 01-14-2023 15:08-0400 Body weight 121.11 kg Vicente Mabry MD Work Phone: [facility] 01-14-2023 15:08-0400 Diastolic blood pressure 68 mm[Hg] Vicente Mabry MD Work Phone: [facility] 01-14-2023 15:08-0400 Systolic blood pressure 126 mm[Hg] Vicente Mabry MD Work Phone: [facility] Encounters Encounter Date Encounter Type Care Provider Facility Start: 05-25-2023 End: 05-25-2023 ambulatory EULA JERNIGAN Facility:[facility] Start: 05-25-2023 End: 05-25-2023 Patient encounter procedure Eula Jernigan CUSTOMER SUPPORT ENGINEER.CNM Work Phone: OB/Gynecology Procedures Date Procedure Procedure Detail Performing Clinician Start: 05-25-2023 URINE OB DIP B/O Dylan Jernigan CUSTOMER SUPPORT ENGINEER.CNM Work Phone: Start: 05-25-2023 Us preg uterus after 1st trimest 04/06 gestation Macarena Cohen APRN.CNM Work Phone: Start: 05-12-2023 URINE OB DIP B/O Katia Guzmán MD Work Phone: Start: 03-17-2023 URINE OB DIP B/O Ami Cohen APRN.CNM Work Phone: Start: 03-04-2023 URINE OB DIP B/O Marita Rivas APRN.PIER WORKER Work Phone: Start: 02-17-2023 URINE OB DIP [...] Author Start: 06-18-2025 Pap Testing Pap Testing [facility] Start: 06-18-2025 Screening for malign ant neoplasm of cervix Pap Testing [facility] Start: 04-06-2023 Depression Assessment Depression Ass essment [facility] Start: 03-17-2023 End: 06-16-2023 CBC W Auto Differential panel - Blood CBC + DIFF Lab Routine Other obesity affecting , antepartum 22 weeks gestation of Expected: 03/17/2023, Expires: 06/16/2023 [facility] Work Phone: Immunizations Immunization Date Immunization Notes Care Provider Fa duncan 01-28-2012 influenza, seasonal, injectable Karl Guzmán MD Work Phone: [facility] Work Phone: 01-28-2012 influenza virus vaccine, unspecified formulation Nurse Wstr Work Phone: [facility] 09-17-2010 human papilloma viru s vaccine, quadrivalent Karl Guzmán MD Work Phone: [facility] Work Phone: 08-13-2010 human papilloma viru s vaccine, quadrivalent Karl Guzmán MD Work Phone: [facility] Work Phone: 03-05-1999 hepatitis B vaccine, pediatric or pediatric/adolescent dosage Karl Guzmán MD Work Phone: [facility] Work Phone: 12-27-1998 diphtheria, tetanus toxoids and acellular pertussis vaccine, unspecified formulation Karl Guzmán MD Work Phone: [facility] Work Phone: 12-27-1998 hepatitis B vaccine, pediatric or pediatric/adolescent dosage Karl Guzmán MD Work Phone: [facility] Work Phone: 12-27-1998 measles, mumps and rubella virus vaccine Karl Guzmán MD Work Phone: [facility] Work Phone: 10-16-1994 diphtheria, tetanus toxoids and pertussis vaccine Karl Guzmán MD Work Phone: [facility] Work Phone: 10-16-1994 haemophilus influenz ae type b vaccine, conjugate unspecified formulation Karl Guzmán MD Work Phone: [facility] Work Phone: 10-16-1994 measles, mumps and rubella virus vaccine Karl Guzmán MD Work Phone: [facility] Work Phone: 10-16-1994 trivalent poliovirus vaccine, live, oral Karl Guzmán MD Work Phone: [facility] Work Phone: 01-12-1994 diphtheria, tetanus toxoids and pertussis vaccine Karl Guzmán MD Work Phone: [facility] Work Phone: 01-12-1994 haemophilus influenz ae type b vaccine, conjugate unspecified formulation Karl Guzmán MD Work Phone: [facility] Work Phone: 01-12-1994 trivalent poliovirus vaccine, live, oral Karl Guzmán MD Work Phone: [facility] Work Phone: 1993 diphtheria, tetanus toxoids and pertussis vaccine Karl Guzmán MD Work Phone: [facility] Work Phone: 1993 haemophilus influenz ae type b vaccine, conjugate unspecified formulation Karl Guzmán MD Work Phone: [facility] Work Phone: 1993 trivalent poliovirus vaccine, live, oral Karl Guzmán MD Work Phone: [facility] Work Phone: 1993 diphtheria, tetanus toxoids and pertussis vaccine Karl Guzmán MD Work Phone: [facility] Work Phone: 1993 haemophilus influenz ae type b vaccine, conjugate unspecified formulation Karl Guzmán MD Work Phone: [facility] Work Phone: 1993 trivalent poliovirus vaccine, live, oral Karl Guzmán MD Work Phone: [facility] Work Phone: Payers Date Payer Category Payer Medicaid ANTHEM MEDICAID ANTHEM [employer] MED[place] [id number] 2022-Present [phone] [address] [place] [address] Medicaid [id number] 2022 Medicaid [id number] 2021 Unknown [id number] 2018 Self-pay 1993 Unknown [id number] 1993 Unknown [id number] 1993 Unknown [id number] Unknown Social History Date Type Detail Facility Start: 07-25-2020 End: 01-14-2023 Never smoked tobacco (finding) [facility]igned At [facility] Start: 08-13-2018 End: 01-14-2023 Tobacco use and exposure Smokeless tobacco non-user [facility] Work Phone: Start: 12-19-2022 Alcohol intake Lifetime non-d ree (finding) [facility] Start: 08-13-2018 End: 03-13-2020 History of Social function [facility] Work Phone: Start: 08-13-2018 End: 03-13-2020 Alcohol Use Disorder Identification Test - Consumption [AUDIT-C] [facility] Work Phone: How often to you hav e a drink containing alcohol? Never [facility] Work Phone: Average Number of Drinks Not on file [facility] Start: 10-25-2022 [facility] Start: 1995 Sex Assigned At Not on file [facility] Start: 01-12-2023 End: 05-25-2023 Alcohol intake Ex-drinker (finding) [facility] Start: 01-12-2023 Education 21 [facility] Start: 01-12-2023 Alcohol Comment rarely [facility] Goals Date Patient Goal Desired Activity /State Personal health goal Clinical Notes 07-30-2020 to 05-25-2023 Quick Notes - Eula Jernigan APRN.CNM - 05/25/2023 10:24 AM ESTPatient InstructionsTelephone Encounter - Leslie Gunderson RN - 05/13/2023 9:46 AM ESTPatient InstructionsRadiologyRadiology Note Date & Type Note Facility 05-25-2023 Miscellaneous Notes Alfonzo Myrick is a 27 year old female who presents at 32w2d for a routine visit. Just completed BPP 11/11. Good movement. Denies headache, visual changes, chest pain, shortness of breath, vaginal bleeding, leakage of fluid, or dysuria. Feeling well, no complaints. Size equal to dates. 10 lbs TWG. ASSESSMENT/PLAN: 1. 32 weeks gestation of - ICD9: V22.2, ICD10: Z3A.32 (primary diagnosis) 2. Supervision of other high risk pregnancies, second trimester - ICD9: V23.89, ICD10: O09.892 3. Other obesity affecting , antepartum - ICD9: 649.13, 278.00, ICD10: O99.210, E66.8 - Weekly BPP/NST's - Induction of labor at 39 weeks - Patient desires unmedicated labor and delivery- Recommended Just breathe class at [facility] - PTL precautions reviewed. RTC in 1 week Eula Jernigan APRN.CNM documented in this encounter [facility] 05-25-2023 Instructions Amanda Ahumada Ma - 05/25/2023 10:07 AM EST SEQUENTIAL SCREENINGS The [facility] offers sequential screenings for women who [...] It will require an appointment with our mail carrier technician. This is not an ultrasound performed [...] the above symptoms, contact our office at [phone] and ask to speak with a nurse. After hours, you can call doctors registry at [phone] OR call [facility] at [phone] and ask to have the doctor carpet installation specialist paged. If you consider this an emergency, dial 9-1-6 or go to your nearest emergency department. NEED HELP? Are you dealing with a violent or abusive relationship? Are you a victim of rape or sexual assult? Call [facility] ([place]) 24 hour Crisis Hotline: 478.845.7410 or 874-487-3419. MANUAL Your Guide to a Healthy manual is now on-line. Visit [email or web address] [email or web address] to download your free copy documented in this encounter [facility] 05-13-2023 Miscellaneous Notes 3rd risk assessment form submitted 05/13/2023. Leslie Gunderson RN documented in this encounter [facility] 05-12-2023 Miscellaneous Notes RR- VB No. LOF No. CTXS No. Movement: present. Other c/o: some constipation and VILLALTA, gets VILLALTA when not . Haven't limited activity. Usually more in evening and when wakes next day improved. 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 Medication list reviewed. Physical Exam See Flow Sheet Abd: soft, nontender, gravid Ext: edema: 1+, erythemia, symetrical: Yes , nontender A/P 30w3d Estimated Date of Delivery: 07/18/23 F/u in 2 weeks or prn edema- d/w her symptomatic measures Intermittent mild VILLALTA, D/w her symptomatic measures and contact office prn if not satisfacotry. No evidence of preeclampsia obesity- US for growth and NSTs ordered Karl Guzmán M.D. documented in this encounter [facility] 05-12-2023 Instructions Amanda Ahumada Ma - 05/12/2023 10:09 AM EST SEQUENTIAL SCREENINGS The [facility] offers sequential screenings for women who [...] It will require an appointment with our mail carrier technician. This is not an ultrasound performed [...] the above symptoms, contact our office at [phone] and ask to speak with a nurse. After hours, you can call doctors registry at [phone] OR call [facility] at [phone] and ask to have the doctor carpet installation specialist paged. If you consider this an emergency, dial 9-1-4 or go to your nearest emergency department. NEED HELP? Are you dealing with a violent or abusive relationship? Are you a victim of rape or sexual assult? Call [facility] ([place]) 24 hour Crisis Hotline: 454.375.4752 or 119-949-6256. MANUAL Your Guide to a Healthy manual is now on-line. Visit [email or web address] [email or web address] to download your free copy documented in this encounter [facility] 03-17-2023 Miscellaneous Notes MAURICIO-S: Alfonzo Myrick is [...] Dentist for mouth issues. Freda SOUTH TEACHING STOREROOM CLERK NOTE OF PERSONAL INVOLVEMENT IN CARE: I have interviewed the patient and updated the midwifery student's PFS history, and ROS as necessary. I have re-performed the HPI, Physical Examination, Assessment and Plan. Macarena Cohen APRN.CNM documented in this encounter [facility] 03-17-2023 Instructions Demetrius Taylor Cma - 03/17/2023 10:12 AM EST SEQUENTIAL SCREENINGS The [facility] offers sequential screenings for women who [...] It will require an appointment with our mail carrier technician. This is not an ultrasound performed [...] the above symptoms, contact our office at [phone] and ask to speak with a nurse. After hours, you can call doctors registry at [phone] OR call [facility] at [phone] and ask to have the doctor carpet installation specialist paged. If you consider this an emergency, dial 9-1-8 or go to your nearest emergency department. NEED HELP? Are you dealing with a violent or abusive relationship? Are you a victim of rape or sexual assult? Call [facility] ([place]) 24 hour Crisis Hotline: 260.609.7649 or 920-421-5792. MANUAL Your Guide to a Healthy manual is now on-line. Visit [email or web address] ancyGuide to download your free copy documented in this encounter [facility] 03-06-2023 Miscellaneous Notes Patient notified. Leslie [...] Marita Rivas APRN.ROCIO documented in this encounter [facility] 03-04-2023 Miscellaneous Notes S: Alfonzo is a 27 year old female who [...] 3 - Low documented in this encounter [facility] 03-04-2023 Instructions Rocio Kate LPN - 03/04/2023 2:25 PM EST SEQUENTIAL SCREENINGS The [facility] offers sequential screenings for women who [...] It will require an appointment with our mail carrier technician. This is not an ultrasound performed [...] the above symptoms, contact our office at [phone] and ask to speak with a nurse. After hours, you can call doctors registry at [phone] OR call [facility] at [phone] and ask to have the doctor carpet installation specialist paged. If you consider this an emergency, dial 9-1-1 or go to your nearest emergency department. NEED HELP? Are you dealing with a violent or abusive relationship? Are you a victim of rape or sexual assult? Call [facility] ([place]) 24 hour Crisis Hotline: 219.806.1620 or 108-194-0222. MANUAL Your Guide to a Healthy manual is now on-line. Visit [email or web address] [email or web address] to download your free copy documented in this encounter [facility] 02-17-2023 Miscellaneous Notes RR- VB No. [...] Karl Guzmán M.D. documented in this encounter [facility] 02-17-2023 Selma Orta LPN - 02/17/2023 9:45 AM EST SEQUENTIAL SCREENINGS The [facility] offers sequential screenings for women who [...] It will require an appointment with our mail carrier technician. This is not an ultrasound performed [...] the above symptoms, contact our office at [phone] and ask to speak with a nurse. After hours, you can call doctors registry at [phone] OR call [facility] at [phone] and ask to have the doctor carpet installation specialist paged. If you consider this an emergency, dial 9-1-1 or go to your nearest emergency department. NEED HELP? Are you dealing with a violent or abusive relationship? Are you a victim of rape or sexual assult? Call [facility] ([place]) 24 hour Crisis Hotline: 263.863.4933 or 738-340-9641. MANUAL Your Guide to a Healthy manual is now on-line. Visit [email or web address] ancyGuide to download your free copy documented in this encounter [facility] 01-28-2023 Miscellaneous Notes Order signed and faxed. Opal Bagley RN Received breast pump order from [address] To DM to sign. Leslie Murphy RN documented in this encounter [facility] 01-28-2023 Miscellaneous Notes noted. Karl Guzmán [...] d/t nausea since it started. Rating pain 01/13 now. Advised to ER for IV fluids and meds. Patient agreed. Next visit 02/17. JONH. Opal Bagley RN documented in this encounter [facility] 01-15-2023 Miscellaneous Notes 1st risk assessment form submitted 01/15/23. documented in this encounter [facility] 01-14-2023 Note HNO ID: [id number] Author: Vicente Lane MD Service: ? 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 Norgestimate-Ethinyl Estradiol (ORTHO [...] Vicente Magana MD documented in this encounter [facility] 01-14-2023 Instructions Amanda Ahumada Ma - 01/14/2023 3:04 PM EDT Please select the following link to access the [facility] Your Guide to a Healthy . [email or web address] documented in this encounter [facility] 01-12-2023 Note HNO ID: [id number] Author: Sarahi Case RN Service: ? 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 [facility] 01-12-2023 Miscellaneous Notes DISTANCE HEALTH VISIT This [...] care center. Patient is transferring care from [facility]. We have received her medical records and they are sent to Dr. Mabry's office for review. Patient is 13 weeks 2 days-she states that that nuchal ultrasound was not offered to her at [facility] and she is not interested in [...] She [facility] but that is not available to her [...] others. Patient states she was seen at [facility] 3 days ago for lightheadedness [...] that he did have genetic testing in [place]. Patient does not believe she has had any genetic testing done on her. Patient declines genetic carrier screening testing and aneuploidy screening.Sarahi Case RN documented in this encounter [facility] 01-12-2023 History of Presen t illness [...] use: No Multivitamin with Folic acid: Yes Cheondoism or heritage: No Would refuse blood transfusion if medically necessary: No Are you currently employed? 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 Norgestimate-Ethinyl Estradiol (ORTHO TRI-CYCLEN LO, 28,) 0.18/0.215/0.25 mg-25 mcg tab Take 1 tablet by mouth once daily. (Patient not taking: Reported on 01/12/2023) 1 Package 3 No current facility-administered medications for this visit. Allergies As of Date: 01/12/2023 Allergen Noted Reaction VICODIN [HYDROCODONE-ACETAMINOPHE*2018 Rash Fully Assessed 01/12/2023 Does patient have penicillin allergy: No documented in this encounter [facility] 12-19-2022 Miscellaneous Notes Lab results received. Submittable updated. Sent all records to medical records to scan into [employer] and copy to [facility] mailbox for 01/12/23 appointment. Opal Bagley RN Received records from [facility] [employer]. Sent fax requesting labs if she had them done. We only received gc/c. Opal Bagley RN documented in this encounter [facility] 07-30-2020 Evaluation + Plan note Future Scheduled TestsUS Thyroid 07/30/[address] [facility] Evaluation + Plan note Future Appointments Appointment Date:02/12/2021 09:30:00 AM Scheduled Provider:RAVEN MCKNIGHT DO Location:[facility] Appointment Type:PC OV Future Scheduled TestsUS Thyroid 07/30/[address] [facility] [place] [facility] Diagnosis Other obesity affecting , antepartum- Primary with care elsewhere, antepartum Nausea and vomiting in Unspecified vomiting of , unspecified as to episode of care [facility] [place] [facility] Diagnosis Other obesity affecting , antepartum- Primary 18 weeks gestation of state, incidental [facility] [place] [facility]* Diagnosis Encounter for anatomic survey- Primary with care elsewhere, antepartum Other obesity affecting , antepartum 18 weeks gestation of state, incidental [facility] [place] [facility]* Diagnosis Pelvic pain during - Primary Other obesity affecting , antepartum 20 weeks gestation of state, incidental Vaginal discharge during in second trimester [facility] [place] [facility]* Diagnosis Pelvic pain in - Primary Other specified complication of , unspecified as to episode of care [facility] [place] [facility]* Diagnosis Other obesity affecting , antepartum- Primary 22 weeks gestation of state, incidental Supervision of other high risk pregnancies, second trimester Migraine without status migrainosus, not intractable, unspecified migraine type Gastroesophageal reflux in Nausea and vomiting in Unspecified vomiting of , unspecified as to episode of care [facility] [place] [facility]* Diagnosis Supervision of other high risk pregnancies, second trimester- Primary 30 weeks gestation of state, incidental Other obesity affecting , antepartum Headache in , third trimester [facility] [place] [facility]* Diagnosis 32 weeks gestation of - Primary state, incidental Supervision of other high risk pregnancies, second trimester Other obesity affecting , antepartum [facility] [place] [facility]* Diagnosis Encounter for ultrasound to check growth- Primary Encounter for routine screening for malformation using ultrasonics Other obesity affecting , antepartum 32 weeks gestation of state, incidental [facility] Narrative No data available for this section [facility] Hospital Discharge instructions No data available for this section [facility] (narrative)* Diagnostic Procedure Only (Routine) - Authorized Specialty Diagnoses / Procedures Referred By Contac t Referred To Contact [facility] Diagnoses with care elsewhere, antepartum Nausea and vomiting in Other obesity affecting , antepartum Procedures OBSTETRIC ULTRASOUND WHI US PREG UTERUS AFTER [address]ST [address] GEST[address] Vicente [address] MD [address] [place] [address] [place] [id number] Referral ID Status Reason Start Date Expiration Date Visits Requested Visits Authorized [id number] Authorized Auto-Generat ed Referral 3 01/14/2024 [address] [facility] for referral (narrative)* Outpatient Procedure (Routine) - Authorized Specialty Diagnoses / Procedures Referred By Contac t Referred To Contact [facility] Diagnoses Other obesity affecting , antepartum 22 weeks gestation of Supervision of other high risk pregnancies, second trimester Procedures NON-STRESS TEST NON-STRESS TEST Macarena Cohen APRN.CNM [address] [place] [address] [address] Referral ID Status Reason Start Date Expiration Date Visits Requested Visits Authorized [id number] Authorized Auto-Generat ed Referral 3 03/16/2024 9 1 * Diagnostic Procedure Only (Routine) - Authorized Specialty Diagnoses / Procedures Referred By Contac t Referred To Contact [facility] Diagnoses Other obesity affecting , antepartum 22 weeks gestation of Supervision of other high risk pregnancies, second trimester Procedures OBSTETRIC ULTRASOUND WHI US PREG UTERUS AFTER 1ST TRIMEST GESTATION Macarena Cohen APRN.CNM [address] [place] [address] [facility] Kinder [address] [place] [address] Referral ID Status Reason Start Date Expiration Date Visits Requested Visits Authorized [id number] Authorized Auto-Generat ed Referral 3 03/16/2024 3 1 [facility] Summary Purpose Family History No Family History [...] CC Education - COMMON 01/14/2023 [place] - [place] 01/14/2023 Problem Noted Date Diagnosed Date [facility] Education - [facility] 01/14/2023 [place] - [place] 01/14/2023 Problem Noted Date Diagnosed Date [facility] Education - [facility] 01/14/2023 Education - [place] 01/14/2023 Problem Noted Date Diagnosed Date [facility] Education - [facility] 01/14/2023 Education - [place] 01/14/2023 Problem Noted Date Diagnosed Date [facility] Education - [facility] 01/14/2023 Education - [place] 01/14/2023 Problem Noted Date Diagnosed Date [facility] CC Education - [facility] 01/14/2023 Education - [place] 01/14/2023 Problem Noted Date Diagnosed Date [facility] CC Education - [facility] 01/14/2023 Education - [place] 01/14/2023 Problem Noted Date Diagnosed Date [facility] CC Education - [facility] 01/14/2023 Education - [place] 01/14/2023 Problem Noted Date Diagnosed Date [facility] Education - [facility] 01/14/2023 Education - [place] 01/14/2023 Problem Noted Date Diagnosed Date [facility] CC Education - [facility] 01/14/2023 Education - [place] 01/14/2023 Problem Noted Date Diagnosed Date [facility] CC Education - [facility] 01/14/2023 Education - [place] 01/14/2023 Additional Source Comments INFORMATION SOURCE (unrecogn ized section and content) DATE CREATED AUTHOR AUTHOR'S ORGANIZ ATION 06/16/2018 [facility] DATE CREATED AUTHOR AUTHOR'S ORGANIZ ATION 06/07/2020 [facility] DATE CREATED AUTHOR AUTHOR'S ORGANIZ ATION 11/13/2020 [facility] DATE CREATED AUTHOR AUTHOR'S ORGANIZ ATION 09/27/2022 [facility] DATE CREATED AUTHOR AUTHOR'S ORGANIZ ATION 05/25/2023 [facility] Source Comments (unrecognize d section and content) In the event this informatio n is protected by the Federal Confidentiality of Alcohol and Drug Abuse Patient Records regulations: The Federal rules restrict any use of the information to criminally investigate or prosecute any alcohol or drug abuse patient.[facility] the event this information is protected by the Federal Confidentiality of Alcohol and Drug Abuse Patient Records regulations: The Federal rules restrict any use of the information to criminally investigate or prosecute any alcohol or drug abuse patient.[facility] the event this information is protected by the Federal Confidentiality of Alcohol and Drug Abuse Patient Records regulations: The Federal rules restrict any use of the information to criminally investigate or prosecute any alcohol or drug abuse patient.[facility] the event this information is protected by the Federal Confidentiality of Alcohol and Drug Abuse Patient Records regulations: The Federal rules restrict any use of the information to criminally investigate or prosecute any alcohol or drug abuse patient.[facility] Hospital[facility] the event this information is protected by the Federal Confidentiality of Alcohol and Drug Abuse Patient Records regulations: The Federal rules restrict any use of the information to criminally investigate or prosecute any alcohol or drug abuse patient.[facility] Hospital[facility] the event this information is protected by the Federal Confidentiality of Alcohol and Drug Abuse Patient Records regulations: The Federal rules restrict any use of the information to criminally investigate or prosecute any alcohol or drug abuse patient.[facility] Hospital[facility] the event this information is protected by the Federal Confidentiality of Alcohol and Drug Abuse Patient Records regulations: The Federal rules restrict any use of the information to criminally investigate or prosecute any alcohol or drug abuse patient.[facility] the event this information is protected by the Federal Confidentiality of Alcohol and Drug Abuse Patient Records regulations: The Federal rules restrict any use of the information to criminally investigate or prosecute any alcohol or drug abuse patient.[facility] the event this information is protected by the Federal Confidentiality of Alcohol and Drug Abuse Patient Records regulations: The Federal rules restrict any use of the information to criminally investigate or prosecute any alcohol or drug abuse patient.[facility] the event this information is protected by the Federal Confidentiality of Alcohol and Drug Abuse Patient Records regulations: The Federal rules restrict any use of the information to criminally investigate or prosecute any alcohol or drug abuse patient.[facility] Hospital[facility] the event this information is protected by the Federal Confidentiality of Alcohol and Drug Abuse Patient Records regulations: The Federal rules restrict any use of the information to criminally investigate or prosecute any alcohol or drug abuse patient.[facility] HospitalIn the event this information is protected by the Federal Confidentiality of Alcohol and Drug Abuse Patient Records regulations: The Federal rules restrict any use of the information to criminally investigate or prosecute any alcohol or drug abuse patient.[facility] Hospital[facility] the event this information is protected by the Federal Confidentiality of Alcohol and Drug Abuse Patient Records regulations: The Federal rules restrict any use of the information to criminally investigate or prosecute any alcohol or drug abuse patient.[facility] Hospital[facility] the event this information is protected by the Federal Confidentiality of Alcohol and Drug Abuse Patient Records regulations: The Federal rules restrict any use of the information to criminally investigate or prosecute any alcohol or drug abuse patient.[facility] Hospital[facility] the event this information is protected by the Federal Confidentiality of Alcohol and Drug Abuse Patient Records regulations: The Federal rules restrict any use of the information to criminally investigate or prosecute any alcohol or drug abuse patient.[facility] Reason for Visit (unrecogniz ed section and content) Reason Comments Care Reason Comments Initial OB Visit Reason Comments PRAF Reason Comments Patient Update Reason Comments Breast Pump Reason Onset Date Comments Care 02/17/2023 Reason Comments US Specialty Diagnoses / Procedures Referred By Contac t Referred To Contact [facility] Diagnoses with care elsewhere, antepartum Nausea and vomiting in Other obesity affecting , antepartum Procedures OBSTETRIC ULTRASOUND WHI US PREG UTERUS AFTER [address]ST TR[address] GESTATION Vicente [address] MD [address] [place] [address] [facility] [address] [place] [address] Referral ID Status Reason Start Date Expiration Date V isits Requested Visits Authorized [id number] Closed Auto-Generate d Referral 01/14/2023 01/14/2024 1 1 Reason Onset Date Comments Care Care 03/04/2023 Reason Onset Date Comments Care 03/17/2023 Reason Onset Date Comments Care 05/12/2023 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 Reason Onset Date Comments Care 05/25/2023 Reason Comments Vaginal Problem Specialty Diagnoses / Procedures Referred By Contac t Referred To Contact [facility] Diagnoses Other obesity affecting , antepartum 22 weeks gestation of Supervision of other high risk pregnancies, second trimester Procedures OBSTETRIC ULTRASOUND WHI US PREG UTERUS AFTER 1ST TRIMEST GESTATION Macarena Cohen APRN.CN [address] [place] [address] [facility] [address] [place] [address] Referral ID Status Reason Start Date Expiration Date V isits Requested Visits Authorized [id number] Closed Auto-Generate d Referral 03/17/2023 03/16/2024 3 1 Care Teams (unrecognized sec tion and content) Equipment Sterilizer Relationship Specialty Start Date End Date Raven Mcknight DO [address] [place] [address] (Fax) PCP - General Family Medicine 09/27/20 Equipment Sterilizer Relationship Specialty Start Date End Date Raven Mcknight DO [address] [place] [address] (Fax) PCP - General Family Medicine 09/27/20 Equipment Sterilizer Relationship Specialty Start Date End Date Raven Mcknight DO [address] [place] [address] (Fax) PCP - General Family Medicine 09/27/20 Equipment Sterilizer Relationship Specialty Start Date End Date Raven Mcknight DO [address] [place] [address] (Fax) PCP - General Family Medicine 09/27/20 Equipment Sterilizer Relationship Specialty Start Date End Date Raven Mcknight DO [address] [place] [address] (Fax) PCP - General Family Medicine 09/27/20 Equipment Sterilizer Relationship Specialty Start Date End Date Raven Mcknight DO [address] [place] [address] (Fax) PCP - General Family Medicine 09/27/20 Equipment Sterilizer Relationship Specialty Start Date End Date Raven Mcknight DO [address] [place] [address] (Fax) PCP - General Family Medicine 09/27/20 Equipment Sterilizer Relationship Specialty Start Date End Date Raven Mcknight DO [address] [place] [address] PCP - General Family Medicine 09/27/20 Equipment Sterilizer Relationship Specialty Start Date End Date Raven Mcknight DO [address] [place] [id number] PCP - General Family Medicine 09/27/20 Equipment Sterilizer Relationship Specialty Start Date End Date Raven Mcknight DO [address] [place] [address] PCP - General Family Medicine 09/27/20 Equipment Sterilizer Relationship Specialty Start Date End Date Raven Mcknight DO [address] [place] [address] PCP - General Family Medicine 09/27/20 Equipment Sterilizer Relationship Specialty Start Date End Date Raven Mcknight DO [address] [place] [address] PCP - General Family Medicine 09/27/20 FOR [...] BE BASED ON THE PRIMARY CLINICAL RECORDS. [facility] [employer] [facility]. provides no warranty or guarantee of the accuracy or completeness of information in this document.
[2023-06-04 23:39] VITALS: BP 130/69; PULSE 93; TEMP 36.9
[2023-06-05 00:30] LABS: Color, Urine Yellow (Yellow); Glucose, Dipstick Normal (Normal); Ketone-Dipstick 5 mg/dl (Negative); Leukocyte Esterase-Dipstick Negative /ul (Negative); Nitrite-Dipstick Negative (Negative); Occult Blood-Urine Negative /ul (Negative); Protein-Dipstick Negative (Negative); Specific Gravity, Urine 1.025 (1.002-1.030); Urine Bilirubin Dipstick Negative (Negative); Urine Clarity Clear (Clear); Urine Urobilinogen Normal (Normal)
--- NOTE | 2023-06-05 07:00 | OB.TRI.NOTE ---
HPI - General HPI Narrative ALFONZO MYRICK, is a 27 F at 33 weeks who presents with lower pelvic cramping. Denies any loss of fluid or vaginal bleeding. Positive movement. PFSH PFSH Medical History Back problem GERD (gastroesophageal reflux disease) Goiter Headache High blood pressure Low vitamin B12 level PCOS (polycystic ovarian syndrome) Seasonal allergies UTI (urinary tract infection) Home Medications vit no.95-ferrous fumarate 28 mg-folic acid 800 mcg tablet () 1 tab PO DAILY 06/04/23 [History Last Taken 06/01/23 08:00] Allergy/AdvReac Type Severity Reaction Status Date / Time hydrocodone [From Vicodin] AdvReac Rash Verified 06/04/23 23:32 Family History Other Anemia Anxiety Arthritis defect Blood clot in vein Breast cancer CVA (cerebral vascular accident) Cancer Cervical cancer Depression Diabetes High cholesterol Hormone deficiency Hypertension Ovarian cancer Seizures Suicidal intent Social History Smoking Status: Never smoker alcohol intake: current alcohol intake frequency: 0-2 drinks per day substance use type: does not use frequency: 3-4 times per week History Elective abortions Hx Para 2 Spontaneous abortions Hx # Term Pregnancies Ectopic pregnancies Hx # Pregnancies Multiple births # of living children ROS Eyes Eyes: Denies blurry vision Cardiovascular Cardiovascular: Reports none; Denies chest pain at rest, chest pain with activity or dizziness Respiratory/Chest Respiratory/Chest: Denies cough or dyspnea Gastrointestinal Gastrointestinal: Reports none and other; Denies diarrhea or vomiting Genitourinary Genitourinary: Denies dysuria Musculoskeletal Musculoskeletal: Reports none Integumentary Integumentary: Reports none; Denies rash Neurologic Neurologic: Denies dizziness, headache(s) or other visual disturbances Psychiatric Psychiatric: Reports none Physical Exam Const alert and no apparent distress General Appearance: cooperative Orientation / Consciousness: awake Exam Limitations: no limitations HEENT normocephalic Eyes General Eye: normal appearance of both eyes Neck full ROM Chest inspection of chest normal Resp normal respiratory effort and normal air movement Effort and Inspection: symmetric chest movement Auscultation: clear to auscultation bilaterally Cardio regular rate GI soft to palpation, non-tender and non-distended Inspection: and other Back/Spine normal ROM Extremity full ROM, normal capillary refill and no calf tenderness Skin no rashes or lesions noted Neuro oriented x3 and CN's II-XII intact bilaterally Psych mental status grossly normal NST FHR Rate Baby A Baseline: 130 Variability:: Moderate Accelerations:: 15 x 15 Decelerations:: None NST Reactive:: Yes Uterine Activity:: None Assessment & Plan (1) 33 weeks gestation of : (2) Abdominal cramping complicating : PLAN: Plan NST reactive No contractions via TOCO or palpated UA- negative except for ketones Patient sleeping and desires discharge home Follow up in office
== END 2023-06-05 01:02 | disposition home or self-care (01) ==
LOC: WPOUT 23:14 → WP 23:14
PROVIDERS: PCP Student in an Organized Health Care Education/Training Program; Referring Provider Advanced Practice Midwife; Visit Provider Advanced Practice Midwife
DX: O99.891 Other specified diseases and conditions complicating pregnancy (principal); R10.9 Unspecified abdominal pain; Z3A.33 33 weeks gestation of pregnancy
CPT/HCPCS: 59025; 59050; 81002; 99221; G0378

== ENCOUNTER 2023-06-20 21:40 | Outpatient (CLI) | payer MEDICAID, SELFPAY ==
[2023-06-04 23:39] VITALS: RESP 16
--- OUTSIDE RECORDS SUMMARY | 2023-06-20 21:50 | XMS RPT_ITS | CCD ---
Author Name Unknown Address [address] [place] [address] Organization [facility] Care Team Providers Care Department Sales Manager Name Role Phone KEYANNA PATEL Unavailable Unavailable PHYSICIAN, NONE Unavailable Unavailable PROVIDER, UNKNOWN Attending Unavailable PROVIDER, UNKNOWN Referring Unavailable No, PCP Primary Care Unavailable JUAN LUIS KIDD, DR CARBAJAL Primary Care Physician [phone] [place] PT, Kaylyn Unavailable Unavailable AYLIN BALTAZAR DO Attending Unavailable DR RAVEN MCKNIGHT DO Primary Care Unavailable Raven Mcknight DO Primary Care Provider [phone] ROMAR, RAVEN Primary Care Unavailable MARITA RIVAS Referring Unavailable ROMAR, RAVEN Primary Care Unavailable MARITA RIVAS Attending Unavailable ROMAR, RAVEN Primary Care Unavailable VICENTE LANE Referring Unavail able ROMAR, RAVEN Primary Care Unavailable VICENTE L[address] Referring Unavail able KARL GUZMÁN Attending Unavailable ROMAR, RAVEN Primary Care Unavailable [address]ENT[address] L[address] Referring Unavail able ROMAR, RAVEN Primary Care Unavailable VICENTE L[address] Attending Unavail able ROMAR, RAVEN Primary Care Unavailable MILE RAMIREZ Attending Unavailable ROMAR, RAVEN Primary Care Unavailable KARL GUZMÁN Attending Unavailable ROMAR, RAVEN Primary Care Unavailable MACARENA COHEN Attending Unavailable ROMAR, RAVEN Primary Care Unavailable ROMAR, RAVEN Primary Care Unavailable ROMAR, RAVEN Primary Care Unavailable MACARENA COHEN Referring Unavailable EULA JERNIGAN Attending Unavailable ROMAR, RAVEN Primary Care Unavailable ROMAR, RAVEN Primary Care Unavailable ROMAR, RAVEN Primary Care Unavailable VICENTE L[address] Referring Unavail able KARL GUZMÁN Attending Unavailable MACARENA COHEN Referring Unavailable RAVEN MCKNIGHT Primary Care Unavailable MARLEY GONZALEZ Attending Unavailable RAVEN MCKNIGHT Primary Care Unavailable VICENTE L[address] Referring Unavail able RAVEN MCKNIGHT Primary Care Unavailable VICENTE L[address] Referring Unavail able MACARENA COHEN Attending Unavailable Allergies Allergy Classification Reported Allergen(s) Allergy Type Date of Onset Reaction(s) Facility (18 sources) Acetaminophen / HYDROcodone; Translations: [acetaminophen-hy drocodone] Drug Allergy 9 Eruption of skin (disorder), Rash [facility] (1 source) Acetaminophen / HYDROcodone; Translations: [HYDROCODONE-ACET AMINOPHEN] Drug Allergy 9 [facility] Repository Medications Completed/Discontinued Medications Medication Drug [...] Classification Problem Date Documented Da te Episodic/Chronic Allergic reactions (2 sources) Allergy status to narcotic agent status; Translations: [Allergy status to narcotic agent status] Onset: 9 Episodic Anxiety disorders (2 sources) Panic attack 12-24-2020 Chronic Conditions associated with dizziness or vertigo (2 sources) Dizziness 07-30-2020 Episodic Gastrointestinal hemorrhage (2 sources) Rectal hemorrhage 09-19-2020 Episodic Genitourinary symptoms and ill-defined conditions (2 sources) Increased frequency of urination 08-24-2020 Episodic Headache; including migraine (9 sources) Migraine; Translations: [Migraine, unspecified, not intractable, [...] second trimester] 03-04-2023 Episodic Other complications of (10 sources) High risk ; Translations: [Supervision of other high risk pregnancies, second trimester] Onset: 3 03-17-2023 Episodic Other complications of (7 sources) Gastroesophageal reflux disease in ; Translations: [Diseases of the digestive system complicating , unspecified trimester] Onset: 3 03-17-2023 Episodic Other complications of (1 source) Headache; Translations: [Other specified related conditions, third trimester] 05-12-2023 Episodic Other connective tissue disease (2 sources) [...] ovarian syndrome; Translations: [Polycystic ovarian syndrome] Onset: Chronic Other endocrine disorders (2 sources) Polycystic ovary syndrome 07-25-2020 Chronic Other gastrointestinal disorders (2 sources) Constipation 09-19-2020 [...] nutritional; endocrine; and metabolic disorders (1 source) Body mass index 40+ - severely obese; Translations: [Body mass index (BMI) 40.0-44.9, adult] 06-15-2023 Chronic Other nutritional; endocrine; and metabolic disorders (1 source) Other obesity; Translations: [Other obesity affecting , antepartum] Onset: Chronic Other screening for suspected conditions (not [...] 05-25-2023 Episodic Residual codes; unclassified (1 source) Gestation period, 35 weeks; Translations: [35 weeks gestation of ] 06-15-2023 Episodic Residual codes; unclassified (1 source) 22 weeks gestation of ; Translations: [22 weeks gestation of ] Onset: Episodic Spondylosis; intervertebral disc disorders; other back problems (3 sources) Low back pain; Translations: [Low back pain] Episodic Thyroid disorders (2 sources) Goiter 07-30-2020 Chronic Unclassified (1 source) No additional problems on file Past or Other Problems Problem Classification Problem Date Documented Date Episodic/Chronic Abdominal pain (4 sources) Abdominal pain; Translations: [Pelvic and perineal pain] Onset: 03-04-2023 09-19-2020 Episodic Other complications of (18 sources) Nausea and vomiting; Translations: [Vomiting of , unspecified] Onset: 01-12-2023 01-12-2023 Episodic Other complications of (1 source) Supervision of other high risk pregnancies, second trimester; Translations: [Supervision of other high risk pregnancies, second trimester] Onset: 03-17-2023 Episodic Other complications of (2 sources) Other specified related conditions, unspecified trimester; Translations: [Pelvic pain in ] Onset: 03-04-2023 Episodic Other complications of (1 source) Other specified related conditions, second trimester; Translations: [Vaginal discharge during in second trimester] Onset: 03-04-2023 Episodic Other complications of (1 source) Vomiting of , unspecified; Translations: [Nausea and vomiting in ] Onset: 01-12-2023 Episodic Other female genital disorders (1 source) Other specified noninflammatory disorders of vagina; Translations: [Vaginal discharge during in second trimester] Onset: 03-04-2023 Episodic Other nutritional; endocrine; and metabolic disorders (16 sources) H/O: thyroid disorder; Translations: [Personal history of other endocrine, nutritional and metabolic disease] Onset: 01-12-2023 01-12-2023 Episodic Other and delivery including normal (19 sources) ; Translations: [Encounter for supervision of normal , unspecified, unspecified trimester] Onset: 01-12-2023 01-12-2023 Episodic Residual codes; unclassified (16 sources) Family history of hereditary disease; Translations: [Family history of other specified conditions] Onset: 01-12-2023 01-12-2023 Episodic Residual codes; unclassified (1 source) 20 weeks gestation of ; Translations: [20 weeks gestation of ] Onset: 03-04-2023 Episodic Screening and history of mental health and substance abuse codes (16 sources) H/O: depression; Translations: [Personal history of other mental and behavioral disorders] Onset: 01-12-2023 01-12-2023 Episodic Results Test Name Value Interpretation Reference Range Facil ity Vital Signs Date Time Vital Sign Value Performing Clinician Bishop swenson 06-15-2023 11:12-0400 Body weight 121.11 kg Narciso Blum MD Work Phone: [facility] 06-15-2023 11:12-0400 Diastolic blood pressure 77 mm[Hg] Narciso Blum MD Work Phone: [facility] 06-15-2023 11:12-0400 Systolic blood pressure 112 mm[Hg] Narciso Blum MD Work Phone: [facility] 05-25-2023 10:07-0500 Diastolic blood pressure 72 mm[Hg] Eula Jernigan EXECUTIVE SECRETARY.CNM Work Phone: [facility] 05-25-2023 10:07-0500 Systolic blood pressure 120 mm[Hg] Eula Jernigan EXECUTIVE SECRETARY.CNM Work Phone: [facility] 05-25-2023 09:31-0500 Body weight 121.66 kg Ob Ultrasound Work Phone: [facility] 05-12-2023 10:08-0500 Body weight 120.2 kg Karl Guzmán MD Work Phone: [facility] 05-12-2023 10:08-0500 Diastolic blood pressure 68 mm[Hg] Karl Guzmán MD Work Phone: [facility] 05-12-2023 10:08-0500 Systolic blood pressure 120 mm[Hg] Karl Guzmán MD Work Phone: [facility] 03-17-2023 10:14-0500 Body weight 119.3 kg Macarena Cohen APRN.CNM Work Phone: [facility] 03-17-2023 10:14-0500 Diastolic blood pressure 72 mm[Hg] Macarena Cohen APRN.CNM Work Phone: [facility] 03-17-2023 10:14-0500 Systolic blood pressure 116 mm[Hg] Macarena Noel EXECUTIVE SECRETARY.CNM Work Phone: [facility] 03-04-2023 14:24-0500 Body weight 119.3 kg Marita Rivas EXECUTIVE SECRETARY.TECHNICAL DATA ANALYST Work Phone: [facility] 03-04-2023 14:24-0500 Diastolic blood pressure 64 mm[Hg] Marita Wardprimitivo EXECUTIVE SECRETARY.TECHNICAL DATA ANALYST Work Phone: [facility] 03-04-2023 14:24-0500 Systolic blood pressure 118 mm[Hg] Marita Wardprimitivo EXECUTIVE SECRETARY.TECHNICAL DATA ANALYST Work Phone: [facility] 02-17-2023 10:14-0500 Body weight 119.75 kg Karl Guzmán MD Work Phone: [facility] 02-17-2023 10:14-0500 Diastolic blood pressure 82 mm[Hg] Karl Guzmán MD Work Phone: [facility] 02-17-2023 10:14-0500 Systolic blood pressure 126 mm[Hg] Karl Guzmán MD Work Phone: [facility] 01-14-2023 15:08-0400 Body height 165.1 cm Vicente Red MD Work Phone: [facility] 01-14-2023 15:08-0400 Body weight 121.11 kg Vicente Red MD Work Phone: [facility] 01-14-2023 15:08-0400 Diastolic blood pressure 68 mm[Hg] Vicente Red MD Work Phone: [facility] 01-14-2023 15:08-0400 Systolic blood pressure 126 mm[Hg] Vicente Red MD Work Phone: [facility] Encounters Encounter Date Encounter Type Care Provider Facility Start: 06-15-2023 End: 06-15-2023 reyna MCKNIGHT Facility:[facility] Start: 06-15-2023 End: 06-15-2023 Patient encounter procedure Narciso Blum MD Work Phone: OB/Gynecology Procedures Date Procedure Procedure Detail Performing Clinician Start: 06-15-2023 URINE OB DIP B/O Mile beasley MD Work Phone: Start: 05-25-2023 URINE OB DIP B/O Dylan Jernigan EXECUTIVE SECRETARY.CNM Work Phone: Start: 05-25-2023 Us preg uterus after 1st trimest 04/06 gestation Macarena Cohen EXECUTIVE SECRETARY.CNM Work Phone: Start: 05-12-2023 URINE OB DIP B/O Katia Guzmán MD Work Phone: Start: 03-17-2023 URINE OB DIP B/O Ami Cohen EXECUTIVE SECRETARY.CNM Work Phone: Start: 03-04-2023 URINE OB DIP B/O Marita Rivas EXECUTIVE SECRETARY.TECHNICAL DATA ANALYST Work Phone: Start: 02-17-2023 URINE OB DIP B/O Katia Guzmán MD Work Phone: Start: 02-17-2023 Us preg uterus after 1st trimest 04/06 gestation Vicente Red MD Work Phone: Start: 11-21-2022 Antibody screen Vicente Red MD Work Phone: Start: 11-21-2022 Bacteria identified [...] Author Start: 06-18-2025 Pap Testing Pap Testing [facility] Start: 06-18-2025 Screening for malign ant neoplasm of cervix Pap Testing [facility] Start: 04-06-2023 Depression Assessment Depression Ass essment [facility] Start: 03-17-2023 End: 06-16-2023 CBC W Auto Differential panel - Blood CBC + DIFF Lab Routine Other obesity affecting , antepartum 22 weeks gestation of Expected: 03/17/2023, Expires: 06/16/2023 [facility] Work Phone: Immunizations Immunization Date Immunization Notes Care Provider Fa [facility] 01-28-2012 influenza, seasonal, injectable Karl Guzmán MD Work Phone: [facility] Work Phone: 01-28-2012 influenza virus vaccine, unspecified formulation Nurse Wstr Work Phone: [facility] 09-17-2010 human papilloma viru s vaccine, quadrivalent Karl Guzmán MD Work Phone: [facility] Work Phone: 08-13-2010 human papilloma viru s vaccine, quadrivalent Karl Guzmán MD Work Phone: [facility] Work Phone: 03-05-1999 hepatitis B vaccine, pediatric or pediatric/adolescent dosage Karl Guzmán MD Work Phone: [facility] Work Phone: 12-27-1998 diphtheria, tetanus toxoids and acellular pertussis vaccine, unspecified formulation Karl Guzmán MD Work Phone: [facility] Work Phone: 12-27-1998 hepatitis B vaccine, pediatric or pediatric/adolescent dosage Karl Guzmán MD Work Phone: [facility] Work Phone: 12-27-1998 measles, mumps and rubella virus vaccine Karl Guzmán MD Work Phone: [facility] Work Phone: 10-16-1994 diphtheria, tetanus toxoids and pertussis vaccine Karl Guzmán MD Work Phone: [facility] Work Phone: 10-16-1994 haemophilus influenz ae type b vaccine, conjugate unspecified formulation Karl Guzmán MD Work Phone: [facility] Work Phone: 10-16-1994 measles, mumps and rubella virus vaccine Karl Guzmán MD Work Phone: [facility] Work Phone: 10-16-1994 trivalent poliovirus vaccine, live, oral Karl Guzmán MD Work Phone: [facility] Work Phone: 01-12-1994 diphtheria, tetanus toxoids and pertussis vaccine Karl Guzmán MD Work Phone: [facility] Work Phone: 01-12-1994 haemophilus influenz ae type b vaccine, conjugate unspecified formulation Karl Guzmán MD Work Phone: [facility] Work Phone: 01-12-1994 trivalent poliovirus vaccine, live, oral Karl Guzmán MD Work Phone: [facility] Work Phone: 1993 diphtheria, tetanus toxoids and pertussis vaccine Karl Guzmán MD Work Phone: [facility] Work Phone: 1993 haemophilus influenz ae type b vaccine, conjugate unspecified formulation Karl Guzmán MD Work Phone: [facility] Work Phone: 1993 trivalent poliovirus vaccine, live, oral Karl Guzmán MD Work Phone: [facility] Work Phone: 1993 diphtheria, tetanus toxoids and pertussis vaccine Karl Guzmán MD Work Phone: [facility] Work Phone: 1993 haemophilus influenz ae type b vaccine, conjugate unspecified formulation Karl Guzmán MD Work Phone: [facility] Work Phone: 1993 trivalent poliovirus vaccine, live, oral Karl Guzmán MD Work Phone: [facility] Work Phone: Payers Date Payer Category Payer Medicaid [facility] MEDICAID [place] BCBS MEDICA[place] OF [place] [id number] 2022-Present [phone] [address] [place] [address] Medicaid [id number] 2022 Medicaid [id number] 2021 Unknown [id number] 2018 Self-pay 1993 Unknown [id number] 1993 Unknown [id number] 1993 Unknown [id number] Unknown Social History Date Type Detail Facility Start: 07-25-2020 End: 01-14-2023 Never smoked tobacco (finding) [facility] Sex Assigned At [facility] Start: 08-13-2018 End: 01-14-2023 Tobacco use and exposure Smokeless tobacco non-user [facility] Work Phone: Start: 12-19-2022 Alcohol intake Lifetime non-d ree (finding) [facility] Start: 08-13-2018 End: 03-13-2020 [facility] Work Phone: Start: 08-13-2018 End: 03-13-2020 Alcohol Use Disorder Identification Test - Consumption [AUDIT-C] [facility] Work Phone: How often to you hav e a drink containing alcohol? Never [facility] Work Phone: Average Number of Drinks Not on file [facility] Start: 10-25-2022 [facility] Start: 1995 Sex Assigned At Not on file [facility] Start: 01-12-2023 End: 05-25-2023 Alcohol intake Ex-drinker (finding) [facility] Start: 01-12-2023 Education 21 [facility] Start: 01-12-2023 Alcohol Comment rarely [facility] Goals Date Patient Goal Desired Activity /State Personal health goal Clinical Notes 07-30-2020 to 06-15-2023 Quick Notes - Narciso Blum MD - 06/15/2023 11:54 AM EDTPatient InstructionsPrenatal Quick Notes - Eula Jernigan APRN.CN - 05/25/2023 10:24 AM ESTPatient InstructionsRadiology Note Date & Type Note Facility 06-15-2023 Miscellaneous Notes Patient is a presenting at 35 + weeks for PNC co left hip pain increasing over the past week and 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 Denies bleeding, loss of fluid, or ctrx. complicated by obesity and threatened PTL. Occasional constipation. PE: fundal ht 36cm, nl DTR, trace LE edema Sono: vertex/ROT NST reactive/read by other IMP/Plan GBS done today RTO weekly NST/PNC measures for constipation discussed Narciso Blum MD documented in this encounter [facility] 06-15-2023 Instructions Loida Bhatia MA - 06/15/2023 11:12 AM EDT SEQUENTIAL SCREENINGS The [facility] offers sequential screenings for women who [...] It will require an appointment with our respiratory support technician. This is not an ultrasound performed [...] the above symptoms, contact our office at [phone] and ask to speak with a nurse. After hours, you can call doctors registry at [phone] OR call [facility] at [phone] and ask to have the doctor animal damage control agent paged. If you consider this an emergency, dial 9-1-5 or go to your nearest emergency department. NEED HELP? Are you dealing with a violent or abusive relationship? Are you a victim of rape or sexual assult? Call [facility] ([place]) 24 hour Crisis Hotline: 752.284.2129 or 761-720-5181. MANUAL Your Guide to a Healthy manual is now on-line. Visit [email or web address] [email or web address] to download your free copy documented in this encounter [facility] 06-09-2023 Note HNO ID: [id number] Author: KARL GUZMÁN MD Service: ? Author Type: Physician Type: Progress Notes Filed: 06/09/2023 11:35 Note Text: NST SUMMARY PROVIDER ASSESSMENT AND INTERPRETATION Alfonzo Myrick is a 27 year old female, , who is at 34w3d with an ERICA of 07/18/2023, by Ultrasound dating method. Indications for NST: Obesity Baseline: 135 Variability: Moderate Accelerations: Present 15 X 15 Decelerations: None Contractions: TOCO: None Interpretation: Category I and Reactive SIGNATURE: Karl Guzmán MD [facility] 06-01-2023 Note HNO ID: [id number] Author: MACARENA COHEN APRN.CNM Service: ? Author Type: Shirring Tender Type: Progress Notes Filed: 06/01/2023 18:13 Note Text: NST SUMMARY PROVIDER ASSESSMENT AND INTERPRETATION Alfonzo Myrick is a 27 year old female, , who is at 33w2d with an ERICA of 07/18/2023, by Ultrasound dating method. Indications for NST: Obesity Baseline: 135 Variability: Moderate Accelerations: Present 15 X 15 Decelerations: None Contractions: TOCO: None Interpretation: Reactive SIGNATURE: Macarena Cohen APRN.CNM [facility] 05-25-2023 Miscellaneous Notes Alfonzo Myrick is a [...] and delivery- Recommended Just breathe class at [facility] - PTL precautions reviewed. RTC in 1 week Eula Jernigan APRN.CNM documented in this encounter [facility] 05-25-2023 Instructions Amanda Ahumada Ma - 05/25/2023 10:07 AM EST SEQUENTIAL SCREENINGS The [facility] offers sequential screenings for women who [...] It will require an appointment with our respiratory support technician. This is not an ultrasound performed [...] the above symptoms, contact our office at [phone] and ask to speak with a nurse. After hours, you can call doctors registry at [phone] OR call [facility] at [phone] and ask to have the doctor animal damage control agent paged. If you consider this an emergency, dial 9-1-4 or go to your nearest emergency department. NEED HELP? Are you dealing with a violent or abusive relationship? Are you a victim of rape or sexual assult? Call [facility] ([facility] 24 hour Crisis Hotline: 553.441.8494 or 749-850-3359. MANUAL Your Guide to a Healthy manual is now on-line. Visit [email or web address] [email or web address] to download your free copy documented in this encounter [facility] 05-13-2023 Miscellaneous Notes 3rd risk assessment form submitted 05/13/2023. Leslie Gunderson RN documented in this encounter [facility] 05-12-2023 Miscellaneous Notes RR- VB No. LOF No. CTXS No. Movement: present. Other c/o: some constipation and WARD, gets WARD when not . Haven't limited activity. Usually more in evening and when wakes next day improved. 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 Medication list reviewed. Physical Exam See Flow Sheet Abd: soft, nontender, gravid Ext: edema: 1+, erythemia, symetrical: Yes , nontender A/P 30w3d Estimated Date of Delivery: 07/18/23 F/u in 2 weeks or prn edema- d/w her symptomatic measures Intermittent mild WARD, D/w her symptomatic measures and contact office prn if not satisfacotry. No evidence of preeclampsia obesity- US for growth and NSTs ordered Karl Guzmán M.D. documented in this encounter [facility] 05-12-2023 Instructions Amanda Ahumada Ma - 05/12/2023 10:09 AM EST SEQUENTIAL SCREENINGS The [facility] offers sequential screenings for women who [...] It will require an appointment with our respiratory support technician. This is not an ultrasound performed [...] the above symptoms, contact our office at [phone] and ask to speak with a nurse. After hours, you can call doctors registry at [phone] OR call [facility] at [phone] and ask to have the doctor animal damage control agent paged. If you consider this an emergency, dial 9-1-1 or go to your nearest emergency department. NEED HELP? Are you dealing with a violent or abusive relationship? Are you a victim of rape or sexual assult? Call [facility] ([place]) 24 hour Crisis Hotline: 787.473.9728 or 548-217-7082. MANUAL Your Guide to a Healthy manual is now on-line. Visit [email or web address] [email or web address] to download your free copy documented in this encounter [facility] 03-17-2023 Miscellaneous Notes MAURICIO-S: Alfonzo Myrick [...] rested all day til went away. Second WARD lasted 1 hr, relieved on its own. [...] Dentist for mouth issues. Freda SOUTH TEACHING ASSOCIATE PROFESSOR OF ENGLISH NOTE OF PERSONAL INVOLVEMENT IN CARE: I have interviewed the patient and updated the midwifery student's PFS history, and ROS as necessary. I have re-performed the HPI, Physical Examination, Assessment and Plan. Macarena Cohen APRN.CNM documented in this encounter [facility] 03-17-2023 Instructions Demetrius Taylor Cma - 03/17/2023 10:12 AM EST SEQUENTIAL SCREENINGS The [facility] offers sequential screenings for women who [...] It will require an appointment with our respiratory support technician. This is not an ultrasound performed [...] the above symptoms, contact our office at [phone] and ask to speak with a nurse. After hours, you can call doctors registry at [phone] OR call [facility] at [phone] and ask to have the doctor animal damage control agent paged. If you consider this an emergency, dial 9--1 or go to your nearest emergency department. NEED HELP? Are you dealing with a violent or abusive relationship? Are you a victim of rape or sexual assult? Call [facility] ([place]) 24 hour Crisis Hotline: 342.913.8722 or 369-208-4855. MANUAL Your Guide to a Healthy manual is now on-line. Visit [email or web address] ancyGuide to download your free copy documented in this encounter [facility] 03-06-2023 Miscellaneous Notes Patient notified. Leslie Murphy RN Belly band may help. Will notify with urine culture results once we know. Order placed. May need to see chiropractor too. Slow movements recommended and rest. To notify with any consistent cramps or contractions. Marita Rivas APRN.TECHNICAL DATA ANALYST Spoke with patient. Notified of results. She [...] negative. How is she feeling? Marita Rivas APRN.CNP documented in this encounter [facility] 03-04-2023 Miscellaneous Notes S: Alfonzo is [...] 3 - Low documented in this encounter [facility] 03-04-2023 Rocio Granados LPN - 03/04/2023 2:25 PM EST SEQUENTIAL SCREENINGS The [facility] offers sequential screenings for women who [...] It will require an appointment with our respiratory support technician. This is not an ultrasound performed [...] the above symptoms, contact our office at [phone] and ask to speak with a nurse. After hours, you can call doctors registry at [phone] OR call [facility] at [phone] and ask to have the doctor animal damage control agent paged. If you consider this an emergency, dial 9-9-0 or go to your nearest emergency department. NEED HELP? Are you dealing with a violent or abusive relationship? Are you a victim of rape or sexual assult? Call [facility] ([place]) 24 hour Crisis Hotline: 830.180.7546 or 759-379-2151. MANUAL Your Guide to a Healthy manual is now on-line. Visit [email or web address] ancyGuide to download your free copy documented in this encounter [facility] 02-17-2023 Miscellaneous Notes RR- VB No. [...] Karl Guzmán M.D. documented in this encounter [facility] 02-17-2023 Elías Selma Ocampo AKIL - 02/17/2023 9:45 AM EST SEQUENTIAL SCREENINGS The [facility] offers sequential screenings for women who [...] It will require an appointment with our respiratory support technician. This is not an ultrasound performed [...] the above symptoms, contact our office at [phone] and ask to speak with a nurse. After hours, you can call doctors registry at [phone] OR call [facility] at [phone] and ask to have the doctor animal damage control agent paged. If you consider this an emergency, dial 4--4 or go to your nearest emergency department. NEED HELP? Are you dealing with a violent or abusive relationship? Are you a victim of rape or sexual assult? Call [facility] ([place]) 24 hour Crisis Hotline: 154.702.9915 or 373-046-8746. MANUAL Your Guide to a Healthy manual is now on-line. Visit [email or web address] ancyGuide to download your free copy documented in this encounter [facility] 01-28-2023 Miscellaneous Notes Order signed and faxed. Opal Bagley RN Received breast pump order from [address] To to sign. Leslie Murphy RN documented in this encounter [facility] 01-28-2023 Miscellaneous Notes noted. Karl Guzmán [...] Opal Bagley RN documented in this encounter [facility] 01-15-2023 Miscellaneous Notes 1st risk assessment form submitted 01/15/23. documented in this encounter [facility] 01-14-2023 Note HNO ID: [id number] Author: Vicente Lane MD Service: ? 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 Norgestimate-Ethinyl Estradiol (ORTHO [...] documented. SBIRT Alfonzo Myrick was given the 4P's screening tool. Alfonzo answered as follows: OB [...] Vicente Magana MD documented in this encounter [facility] 01-14-2023 Instructions Amanda Ahumada Ma - 01/14/2023 3:04 PM EDT Please select the following link to access the [facility] Your Guide to a Healthy . [email or web address] documented in this encounter [facility] 01-12-2023 Note HNO ID: [id number] Author: Sarahi Case RN Service: ? 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 [facility] 01-12-2023 Miscellaneous Notes DISTANCE HEALTH VISIT This [...] care center. Patient is transferring care from [place]. We have received her medical records and they are sent to Dr. Red's office for review. Patient is 13 weeks 2 days-she states that that nuchal ultrasound was not offered to her at [place] and she is not interested in it [...] She has had counseling at a previous [facility] but that is not available to her [...] others. Patient states she was seen at [facility] ER 3 days ago for lightheadedness [...] that he did have genetic testing in [place]. Patient does not believe she has had any genetic testing done on her. 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 Norgestimate-Ethinyl Estradiol (ORTHO TRI-CYCLEN LO, 28,) 0.18/0.215/0.25 mg-25 mcg tab Take 1 tablet by mouth once daily. (Patient not taking: Reported on 01/12/2023) 1 Package 3 No current facility-administered medications for this visit. Allergies As of Date: 01/12/2023 Allergen Noted Reaction VICODIN [HYDROCODONE-ACETAMINOPHE*2018 Rash Fully Assessed 01/12/2023 Does patient have penicillin allergy: No documented in this encounter [facility] 12-19-2022 Miscellaneous Notes Lab results received. [facility] updated. Sent all records to medical records to scan into epic and copy to [employer] mailbox for 01/12/23 appointment. Opal Bagley RN Received records from [place] [facility] [employer]. Sent fax requesting labs if she had them done. We only received gc/c. Opal Bagley RN documented in this encounter [facility] 07-30-2020 Evaluation + Plan note Future Scheduled TestsUS Thyroid 07/30/20 [facility] Evaluation + Plan note Future Appointments Appointment Date:02/12/2021 09:30:00 AM Scheduled Provider:RAVEN MCKNIGHT DO Location:[facility] Appointment Type:PC OV Future Scheduled TestsUS Thyroid 07/30/20 [facility] Diagnosis Other obesity affecting , antepartum- Primary with care elsewhere, antepartum Nausea and vomiting in Unspecified vomiting of , unspecified as to episode of care [facility] Diagnosis Other obesity affecting , antepartum- Primary 18 weeks gestation of state, incidental [facility] Diagnosis Encounter for anatomic survey- Primary with care elsewhere, antepartum Other obesity affecting , antepartum 18 weeks gestation of state, incidental [facility] Diagnosis Pelvic pain during - Primary Other obesity affecting , antepartum 20 weeks gestation of state, incidental Vaginal discharge during in second trimester [facility] Diagnosis Pelvic pain in - Primary Other specified complication of , unspecified as to episode of care [facility] Diagnosis Other obesity affecting , antepartum- Primary 22 weeks gestation of state, incidental Supervision of other high risk pregnancies, second trimester Migraine without status migrainosus, not intractable, unspecified migraine type Gastroesophageal reflux in Nausea and vomiting in Unspecified vomiting of , unspecified as to episode of care [facility] Diagnosis Supervision of other high risk pregnancies, second trimester- Primary 30 weeks gestation of state, incidental Other obesity affecting , antepartum Headache in , third trimester documented in this encounter [facility] note* Diagnosis 32 weeks gestation of - Primary state, incidental Supervision of other high risk pregnancies, second trimester Other obesity affecting , antepartum documented in this encounter [facility] note* Diagnosis Encounter for ultrasound to check growth- Primary Encounter for routine screening for malformation using ultrasonics Other obesity affecting , antepartum 32 weeks gestation of state, incidental documented in this encounter [facility] note* Diagnosis 35 weeks gestation of - Primary state, incidental Supervision of high risk in third trimester Unspecified high-risk Other obesity affecting , antepartum BMI 40.0-44.9, adult (HCC) Body Mass Index 40.0-44.9, adult documented in this encounter [facility] course Narrative No data available for this section [facility] Hospital Discharge instructions No data available for this section [facility] Reason for referral (narrative)* Diagnostic Procedure Only (Routine) - Authorized Specialty Diagnoses / Procedures Referred By Annita t Referred To Contact [facility] Diagnoses with care elsewhere, antepartum Nausea and vomiting in Other obesity affecting , antepartum Procedures OBSTETRIC ULTRASOUND WHI US PREG UTERUS AFTER 1ST TRIME[address] GESTATION Vicente Lane MD [address] [place] [address] [address] Referral ID Status Reason Start Date Expiration Date Visits Requested Visits Authorized [id number] Authorized Auto-Generat ed Referral 3 01/14/2024 1 1 [facility] for referral (narrative)* Outpatient Procedure (Routine) - Authorized Specialty Diagnoses / Procedures Referred By Contac t Referred To Contact [facility] Diagnoses Other obesity affecting , antepartum 22 weeks gestation of Supervision of other high risk pregnancies, second trimester Procedures NON-STRESS TEST NON-STRESS TEST Macarena Cohen APRN.CNM [address] [place] [address] [facility] [address] [place] [address] Referral ID Status Reason Start Date Expiration Date Visits Requested Visits Authorized [id number] Authorized Auto-Generat ed Referral 3 03/16/2024 9 1 * Diagnostic Procedure Only (Routine) - Authorized Specialty Diagnoses / Procedures Referred By Contac t Referred To Contact [facility] Diagnoses Other obesity affecting , antepartum 22 weeks gestation of Supervision of other high risk pregnancies, second trimester Procedures OBSTETRIC ULTRASOUND WHI US PREG UTERUS AFTER 1ST TRIMEST GESTATION Macarena Cohen APRN.CNM [address] [place] [address] [facility] [address] [place] [address] Referral ID Status Reason Start Date Expiration Date Visits Requested Visits Authorized [id number] Authorized Auto-Generat ed Referral 3 03/16/2024 3 1 [facility] Summary Purpose Family History No Family [...] Date Diagnosed Date [facility] - [facility] 01/14/2023 [facility] - [place] 01/14/2023 Problem Noted Date Diagnosed Date [facility] - [facility] 01/14/2023 [facility] - [place] 01/14/2023 Active Problems Noted Date Diagnosed Date [facility] - [facility] 01/14/2023 Education - [place] 01/14/2023 Additional Source Comments INFORMATION SOURCE (unrecogn ized section and content) DATE CREATED AUTHOR AUTHOR'S ORGANIZ ATION 06/16/2018 [facility] DATE CREATED AUTHOR AUTHOR'S ORGANIZ ATION 06/07/2020 [facility] DATE CREATED AUTHOR AUTHOR'S ORGANIZ ATION 11/13/2020 [facility] DATE CREATED AUTHOR AUTHOR'S ORGANIZ ATION 09/27/2022 [facility] ([place]) DATE CREATED AUTHOR AUTHOR'S ORGANIZ ATION 06/18/2023 [facility] Source Comments (unrecognize d section and content) In the event this informatio n is protected by the Federal Confidentiality of Alcohol and Drug Abuse Patient Records regulations: The Federal rules restrict any use of the information to criminally investigate or prosecute any alcohol or drug abuse patient.[facility] the event this information is protected by the Federal Confidentiality of Alcohol and Drug Abuse Patient Records regulations: The Federal rules restrict any use of the information to criminally investigate or prosecute any alcohol or drug abuse patient.[facility] the event this information is protected by the Federal Confidentiality of Alcohol and Drug Abuse Patient Records regulations: The Federal rules restrict any use of the information to criminally investigate or prosecute any alcohol or drug abuse patient.[facility] the event this information is protected by the Federal Confidentiality of Alcohol and Drug Abuse Patient Records regulations: The Federal rules restrict any use of the information to criminally investigate or prosecute any alcohol or drug abuse patient.[facility] the event this information is protected by the Federal Confidentiality of Alcohol and Drug Abuse Patient Records regulations: The Federal rules restrict any use of the information to criminally investigate or prosecute any alcohol or drug abuse patient.[facility] the event this information is protected by the Federal Confidentiality of Alcohol and Drug Abuse Patient Records regulations: The Federal rules restrict any use of the information to criminally investigate or prosecute any alcohol or drug abuse patient.[facility] the event this information is protected by the Federal Confidentiality of Alcohol and Drug Abuse Patient Records regulations: The Federal rules restrict any use of the information to criminally investigate or prosecute any alcohol or drug abuse patient.[facility] the event this information is protected by the Federal Confidentiality of Alcohol and Drug Abuse Patient Records regulations: The Federal rules restrict any use of the information to criminally investigate or prosecute any alcohol or drug abuse patient.[facility] the event this information is protected by the Federal Confidentiality of Alcohol and Drug Abuse Patient Records regulations: The Federal rules restrict any use of the information to criminally investigate or prosecute any alcohol or drug abuse patient.[facility] the event this information is protected by the Federal Confidentiality of Alcohol and Drug Abuse Patient Records regulations: The Federal rules restrict any use of the information to criminally investigate or prosecute any alcohol or drug abuse patient.[facility] the event this information is protected by the Federal Confidentiality of Alcohol and Drug Abuse Patient Records regulations: The Federal rules restrict any use of the information to criminally investigate or prosecute any alcohol or drug abuse patient.[facility] the event this information is protected by the Federal Confidentiality of Alcohol and Drug Abuse Patient Records regulations: The Federal rules restrict any use of the information to criminally investigate or prosecute any alcohol or drug abuse patient.[facility] the event this information is protected by the Federal Confidentiality of Alcohol and Drug Abuse Patient Records regulations: The Federal rules restrict any use of the information to criminally investigate or prosecute any alcohol or drug abuse patient.[facility] the event this information is protected by the Federal Confidentiality of Alcohol and Drug Abuse Patient Records regulations: The Federal rules restrict any use of the information to criminally investigate or prosecute any alcohol or drug abuse patient.[facility] the event this information is protected by the Federal Confidentiality of Alcohol and Drug Abuse Patient Records regulations: The Federal rules restrict any use of the information to criminally investigate or prosecute any alcohol or drug abuse patient.[facility] the event this information is protected by the Federal Confidentiality of Alcohol and Drug Abuse Patient Records regulations: The Federal rules restrict any use of the information to criminally investigate or prosecute any alcohol or drug abuse patient.[facility] Reason for Visit (unrecogniz ed section and content) Reason Comments Care Reason Comments Initial OB Visit Reason Comments PRAF Reason Comments Patient Update Reason Comments Breast Pump Reason Onset Date Comments Care 02/17/2023 Reason Comments US Specialty Diagnoses / Procedures Referred By Contac t Referred To Contact [facility] Diagnoses with care elsewhere, antepartum Nausea and vomiting in Other obesity affecting , antepartum Procedures OBSTETRIC ULTRASOUND WHI US PREG UTERUS AFTER 1ST TRIMEST GESTATION Vicente Lane MD [address] [place] [address] [id number] [place] [address] Referral ID Status Reason Start Date Expiration Date V isits Requested Visits Authorized [id number] Closed Auto-Generate d Referral 01/14/2023 01/14/2024 1 1 Reason Onset Date Comments Care Care 03/04/2023 Reason Onset Date Comments Care 03/17/2023 Reason Onset Date Comments Care 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 [address] [place] [address] Referral ID Status Reason Start Date Expiration Date V isits Requested Visits Authorized [id number] Closed Auto-Generate d Referral 03/17/2023 03/16/2024 3 1 Reason Onset Date Comments Care 06/15/2023 Care Teams (unrecognized sec tion and content) Department Sales Manager Relationship Specialty Start Date End Date Raven Mcknight DO [address] [place] [id number] PCP - General Family Medicine 09/27/20 Department Sales Manager Relationship Specialty Start Date End Date Raven Mcknight DO [address] [place] [address] PCP - General Family Medicine 09/27/20 Department Sales Manager Relationship Specialty Start Date End Date Raven Mcknight DO [address] [place] [address] PCP - General Family Medicine 09/27/20 Department Sales Manager Relationship Specialty Start Date End Date Raven Mcknight DO [address] [place] [address] PCP - General Family Medicine 09/27/20 Department Sales Manager Relationship Specialty Start Date End Date Raven Mcknight DO [address] [place] [address] PCP - General Family Medicine 09/27/20 Department Sales Manager Relationship Specialty Start Date End Date Raven Mcknight DO [address] [place] [address] PCP - General Family Medicine 09/27/20 Department Sales Manager Relationship Specialty Start Date End Date Raven Mcknight DO [address] [place] [address] PCP - General Family Medicine 09/27/20 Department Sales Manager Relationship Specialty Start Date End Date Raven Mcknight DO [address] [place] [address] PCP - General Family Medicine 09/27/20 Department Sales Manager Relationship Specialty Start Date End Date Raven Mcknight DO [address] [place] [address] PCP - General Family Medicine 09/27/20 Department Sales Manager Relationship Specialty Start Date End Date Raven Mcknight DO [address] [place] [id number] PCP - General Family Medicine 09/27/20 Department Sales Manager Relationship Specialty Start Date End Date Juan LuisRaven DO [address] [place] [address] PCP - General Family Medicine 09/27/20 Department Sales Manager Relationship Specialty Start Date End Date Raven Mcknight DO [address] [place] [id number] PCP - General Family Medicine 09/27/20 Department Sales Manager Relationship Specialty Start Date End Date JackRaven milian DO [address] [place] [id number] PCP - General Family Medicine 09/27/20 FOR [...] BE BASED ON THE PRIMARY CLINICAL RECORDS. [employer] provides no warranty or guarantee of the accuracy or completeness of information in this document.
[2023-06-20 21:58] VITALS: BMI 44.8
[2023-06-20 22:04] VITALS: BP 121/70; PULSE 97; RESP 18; TEMP 36.7; O2SAT 98
--- NOTE | 2023-06-21 10:32 | OB.TRI.NOTE ---
HPI - General HPI Narrative ALFONZO MYRICK, is a 27 F at 36 weeks gestation who presents with pelvic pressure and feeling anxious. Reports positive movement and occasional contractions that are not painful . Denies current pain. Reports feeling anxious and wanted to make sure everything was alright. Maternal Data Information ERICA Calculator Estimated Delivery Date Method Current WG Current Estimate 07/18/23 Manual 36w 1d PFSH PFSH Medical History Back problem GERD (gastroesophageal reflux disease) Goiter Headache High blood pressure Low vitamin B12 level PCOS (polycystic ovarian syndrome) Seasonal allergies UTI (urinary tract infection) Home Medications vit no.95-ferrous fumarate 28 mg-folic acid 800 mcg tablet () 1 tab PO DAILY 06/04/23 [History Last Taken 06/17/23 10:00] Allergy/AdvReac Type Severity Reaction Status Date / Time hydrocodone [From Vicodin] AdvReac Rash Verified 06/20/23 22:03 Family History Other Anemia Anxiety Arthritis defect Blood clot in vein Breast cancer CVA (cerebral vascular accident) Cancer Cervical cancer Depression Diabetes High cholesterol Hormone deficiency Hypertension Ovarian cancer Seizures Suicidal intent Social History Smoking Status: Never smoker alcohol intake: current alcohol intake frequency: 0-2 drinks per day substance use type: does not use frequency: 3-4 times per week History Elective abortions Hx Para 2 Spontaneous abortions Hx # Term Pregnancies Ectopic pregnancies Hx # Pregnancies Multiple births # of living children ROS Eyes Eyes: Denies blurry vision Cardiovascular Cardiovascular: Reports none; Denies chest pain at rest, chest pain with activity or dizziness Respiratory/Chest Respiratory/Chest: Denies cough or dyspnea Gastrointestinal Gastrointestinal: Reports none and other; Denies diarrhea or vomiting Genitourinary Genitourinary: Denies dysuria Musculoskeletal Musculoskeletal: Reports none Integumentary Integumentary: Reports none; Denies rash Neurologic Neurologic: Denies dizziness, headache(s) or other visual disturbances Psychiatric Psychiatric: Reports none Physical Exam Const alert and no apparent distress General Appearance: cooperative Orientation / Consciousness: awake Exam Limitations: no limitations HEENT normocephalic Eyes General Eye: normal appearance of both eyes Neck full ROM Chest inspection of chest normal Resp normal respiratory effort and normal air movement Effort and Inspection: symmetric chest movement Auscultation: clear to auscultation bilaterally Cardio regular rate GI soft to palpation, non-tender and non-distended Inspection: and other Back/Spine normal ROM Extremity full ROM, normal capillary refill and no calf tenderness Skin no rashes or lesions noted Neuro oriented x3 and CN's II-XII intact bilaterally Psych mental status grossly normal NST FHR Rate Baby A Baseline: 125 Variability:: Moderate Accelerations:: 15 x 15 Decelerations:: None NST Reactive:: Yes FHR Category:: Category I Uterine Activity:: None noted via TOCO or palpation Assessment & Plan (1) 36 weeks gestation of : (2) Anxiety: (3) Pelvic pressure in : PLAN: Plan NST reactive, Cat. 1 tracing Support given CE - /-3 unchanged D/C home with follow up in office
== END 2023-06-20 23:39 | disposition home or self-care (01) ==
LOC: WPOUT 21:47 → WP 21:48
PROVIDERS: PCP Student in an Organized Health Care Education/Training Program; Visit Provider Advanced Practice Midwife
DX: O99.343 Other mental disorders complicating pregnancy, third trimester (principal); O26.893 Other specified pregnancy related conditions, third trimester; F41.9 Anxiety disorder, unspecified; Z3A.36 36 weeks gestation of pregnancy
CPT/HCPCS: 59025; 59050; 99221; G0378

== ENCOUNTER 2023-07-11 01:50 | Outpatient (CLI) | payer MEDICAID, SELFPAY ==
[2023-07-11 02:04] VITALS: BP 130/69; PULSE 86
[2023-07-11 02:06] VITALS: PULSE 91; O2SAT 100
[2023-07-11 02:07] VITALS: RESP 16; TEMP 36.8
[2023-07-11 02:13] VITALS: BMI 44.1
[2023-07-11 03:35] VITALS: RESP 17; TEMP 36.6
[2023-07-11 03:36] VITALS: BP 121/74; PULSE 88
--- NOTE | 2023-07-11 07:31 | OB.TRI.NOTE ---
HPI - General General Date of Admission: 07/11/23 Date of Service: 07/11/23 Chief Complaint: contractions HPI Narrative ALFONZO MYRICK, is a 28 F who presents with uterine contractions. Cervix unchanged from office visit. No cervical change after an hour. Irregular contractions. Maternal Data Information ERICA Calculator Estimated Delivery Date Method Current WG Current Estimate 07/18/23 Manual 39w 0d Final ERICA: 07/18/23 Gestational age: 39 PFSH PFSH Medical History Back problem GERD (gastroesophageal reflux disease) Goiter Headache High blood pressure Low vitamin B12 level PCOS (polycystic ovarian syndrome) Seasonal allergies UTI (urinary tract infection) Home Medications vit no.95-ferrous fumarate 28 mg-folic acid 800 mcg tablet () 1 tab PO DAILY 06/04/23 [History Last Taken 06/17/23 10:00] Allergy/AdvReac Type Severity Reaction Status Date / Time hydrocodone [From Vicodin] AdvReac Rash Verified 07/11/23 02:14 Family History Other Anemia Anxiety Arthritis defect Blood clot in vein Breast cancer CVA (cerebral vascular accident) Cancer Cervical cancer Depression Diabetes High cholesterol Hormone deficiency Hypertension Ovarian cancer Seizures Suicidal intent Social History Smoking Status: Never smoker alcohol intake: current alcohol intake frequency: 0-2 drinks per day substance use type: does not use frequency: 3-4 times per week History Elective abortions Hx Para 2 Spontaneous abortions Hx # Term Pregnancies Ectopic pregnancies Hx # Pregnancies Multiple births # of living children NST FHR Rate Baby A Baseline: 135 Variability:: Moderate Accelerations:: 15 x 15 Decelerations:: None NST Reactive:: Yes FHR Category:: Category I Uterine Activity:: irregular contractions Assessment & Plan (1) False labor, antepartum: (2) 39 weeks gestation of :
== END 2023-07-11 04:20 | disposition home or self-care (01) ==
LOC: WPOUT 01:53 → WP 01:53
PROVIDERS: PCP Student in an Organized Health Care Education/Training Program; Referring Provider Obstetrics & Gynecology; Visit Provider Obstetrics & Gynecology
DX: O47.1 False labor at or after 37 completed weeks of gestation (principal); Z3A.39 39 weeks gestation of pregnancy
CPT/HCPCS: 59025; 59050 ×2; G0378 ×2; 99221

== ENCOUNTER 2023-07-12 02:55 | Outpatient (CLI) | payer MEDICAID, SELFPAY ==
[2023-07-12 03:04] VITALS: RESP 16; TEMP 36.5
[2023-07-12 03:05] VITALS: BP 121/70; PULSE 90
[2023-07-12 03:10] VITALS: BMI 44.1
--- NOTE | 2023-07-16 17:56 | OB.TRI.NOTE ---
HPI - General General Date of Admission: 07/12/23 Date of Service: 07/12/23 Chief Complaint: contractions HPI Narrative ALFONZO MYRICK, is a 28 F who presents with uterine contractions. Cervix unchanged from office visit. No cervical change after an hour. Irregular contractions. Maternal Data Information ERICA Calculator Estimated Delivery Date Method Current WG Current Estimate 07/18/23 Manual 39w 5d Final ERICA: 07/18/23 Gestational age: 39+2 PFSH PFSH Medical History (Updated 07/14/23 @ 12:53 by Emy Cohen CNM) Anxiety Back problem Chlamydia infection affecting Depression GERD (gastroesophageal reflux disease) Goiter Headache High blood pressure Low vitamin B12 level PCOS (polycystic ovarian syndrome) depression Seasonal allergies UTI (urinary tract infection) Home Medications vit no.95-ferrous fumarate 28 mg-folic acid 800 mcg tablet () 1 tab PO DAILY 06/04/23 [History Last Taken 06/17/23 10:00] acetaminophen 500 mg tablet 1,000 mg (2 x 500 mg) PO Q6H PRN PRN Pain 1-10 Or Fever #0 tabs 07/14/23 [Rx Last Taken Unknown] ibuprofen 600 mg tablet 600 mg PO Q6H PRN PRN Pain Score 1-10 #0 tabs 07/14/23 [Rx Last Taken Unknown] Allergy/AdvReac Type Severity Reaction Status Date / Time hydrocodone [From Vicodin] AdvReac Rash Verified 07/13/23 07:32 Family History Other Anemia Anxiety Arthritis defect Blood clot in vein Breast cancer CVA (cerebral vascular accident) Cancer Cervical cancer Depression Diabetes High cholesterol Hormone deficiency Hypertension Ovarian cancer Seizures Suicidal intent Social History Smoking Status: Never smoker alcohol intake: current alcohol intake frequency: 0-2 drinks per day substance use type: does not use frequency: 3-4 times per week History Elective abortions Hx Para 3 Spontaneous abortions Hx # Term Pregnancies Ectopic pregnancies Hx # Pregnancies Multiple births # of living children Physical Exam Const alert and no apparent distress General Appearance: cooperative HEENT normocephalic Resp normal respiratory effort Cardio regular rate GI soft to palpation GI Narrative: gravid, nontender, appropriate for gestational age Extremity no calf tenderness General Extremity: edema Skin no wounds Rashes: No rashes noted Psych activity/motor behavior normal NST FHR Rate Baby A Baseline: 140s Variability:: Moderate Accelerations:: 15 x 15 Decelerations:: None NST Reactive:: Yes FHR Category:: Category I Uterine Activity:: irregular Assessment & Plan (1) False labor, antepartum: (2) 39 weeks gestation of :
== END 2023-07-12 04:51 | disposition home or self-care (01) ==
LOC: WPOUT 02:56 → WP 02:57
PROVIDERS: PCP Student in an Organized Health Care Education/Training Program; Visit Provider Obstetrics & Gynecology
DX: O47.1 False labor at or after 37 completed weeks of gestation (principal); Z3A.39 39 weeks gestation of pregnancy
CPT/HCPCS: 59025; 59050 ×2; G0378 ×2; 99221

== ENCOUNTER 2023-07-13 07:05 | Inpatient (IN) | payer MEDICAID, SELFPAY ==
[2023-07-13] VITALS (20 sets, daily range): BP systolic 113–149; BP diastolic 56–88; PULSE 75–99; RESP 14–18; TEMP 36.9–37.8; O2SAT 90–99; BMI 43.8
[2023-07-13] MEDS: Lactated Ringers 1,000 ML 50 ML IV (07:40)
[2023-07-13] MEDS: Oxytocin 15 Units/NS 250ml 15 UNITS/250 ML IV.SOLN 2 UNITS IV (07:56)
[2023-07-13 08:18] LABS: Absolute Lymphocyte Count 2.53 X10^3/uL (0.83-4.51); Absolute Neutrophil Count 6.5 X10^3/uL (2.0-7.7); Basophil# 0.05 X10^3/uL; Basophil% 0.5 % (0-1); Eosinophil# 0.06 X10^3/uL; Eosinophils% 0.6 % (0-5); Hematocrit 34.6 % (37-47); Hemoglobin 11.1 g/dL (12.0-15.0); Lymphocyte # 2.53 X10^3/ul (0.83-4.51); Lymphocyte % 26.4 % (19-41); Mean Corp Hgb Conc 32.1 g/dL (32-36); Mean Corpuscular Hgb 23.4 pg (27.0-32.0); Mean Corpuscular Volume 72.8 fL (81-99); Mean Platelet Vol. 10.9 fl (6.2-12.0); Monocyte# 0.42 X10^3/uL; Monocyte% 4.4 % (0-10); NRBC Flagged by Analyzer 0 % (0-5); Neutrophil # 6.46 X10^3/uL (2.7-7.7); Neutrophil % 67.6 % (47-70); Platelet Count 263 K/mm3 (150-450); RBC Distribution Width CV 14.6 % (11.6-14.6); RBC Distribution Width SD 38.5 fl (35.1-43.9); Red Blood Count 4.75 M/mm3 (4.2-5.4); White Blood Count 9.6 K/mm3 (4.4-11.0)
[2023-07-13] MEDS: CHLORHEXIDINE GLUC 2% CLOTH 1 EACH TOWELETTE TOPICAL (08:28)
[2023-07-13 08:45] LABS: Syphilis Antibodies Non-reactive
--- NOTE | 2023-07-13 08:59 | PCM.HP.OB ---
HPI - General General Date of Admission: 07/13/23 HPI Narrative ALFONZO MYRICK, is a 28 F who presents for induction of labor due to obesity. Maternal Data Information ERICA Calculator Estimated Delivery Date Method Current WG Current Estimate 07/18/23 Manual 39w 3d PFSH PFS Medical History (Updated 07/14/23 @ 12:53 by Emy Cohen CNM) Anxiety Back problem Chlamydia infection affecting Depression GERD (gastroesophageal reflux disease) Goiter Headache High blood pressure Low vitamin B12 level PCOS (polycystic ovarian syndrome) depression Seasonal allergies UTI (urinary tract infection) Home Medications vit no.95-ferrous fumarate 28 mg-folic acid 800 mcg tablet () 1 tab PO DAILY 06/04/23 [History Last Taken 06/17/23 10:00] acetaminophen 500 mg tablet 1,000 mg (2 x 500 mg) PO Q6H PRN PRN Pain 1-10 Or Fever #0 tabs 07/14/23 [Rx Last Taken Unknown] ibuprofen 600 mg tablet 600 mg PO Q6H PRN PRN Pain Score 1-10 #0 tabs 07/14/23 [Rx Last Taken Unknown] Allergy/AdvReac Type Severity Reaction Status Date / Time hydrocodone [From Vicodin] AdvReac Rash Verified 07/13/23 07:32 Family History Other Anemia Anxiety Arthritis defect Blood clot in vein Breast cancer CVA (cerebral vascular accident) Cancer Cervical cancer Depression Diabetes High cholesterol Hormone deficiency Hypertension Ovarian cancer Seizures Suicidal intent Social History Smoking Status: Never smoker alcohol intake: current alcohol intake frequency: 0-2 drinks per day substance use type: does not use frequency: 3-4 times per week History Elective abortions Hx Para 3 Spontaneous abortions Hx # Term Pregnancies Ectopic pregnancies Hx # Pregnancies Multiple births # of living children NST FHR Rate Baby A Baseline: 145 Variability:: Moderate Accelerations:: 15 x 15 Decelerations:: None FHR Category:: Category I Uterine Activity:: Irregular ROS Constitutional Constitutional: Reports systems reviewed and no addt'l complaints, except as documented; Denies headache(s) Eyes Eyes: Denies acute decrease in peripheral vision, blurry vision or change in vision ENT HEENT: Reports systems reviewed and no addt'l complaints, except as documented Cardiovascular Cardiovascular: Denies chest pain or dizziness Respiratory/Chest Respiratory/Chest: Denies cough, dyspnea, dyspnea on exertion, shortness of breath at rest or shortness of breath with exertion Gastrointestinal Gastrointestinal: Denies abdominal pain, diarrhea, nausea or vomiting Genitourinary Genitourinary: Denies abdominal discomfort Musculoskeletal Musculoskeletal: Denies limited range of motion Integumentary Integumentary: Reports systems reviewed and no addt'l complaints, except as documented Neurologic Neurologic: Reports systems reviewed and no addt'l complaints, except as documented Psychiatric Psychiatric: Reports systems reviewed and no addt'l complaints, except as documented Endocrine Endocrinology: Reports systems reviewed and no addt'l complaints, except as documented Hematologic/Lymphatic Hematologic/Lymphatic: Reports systems reviewed and no addt'l complaints, except as documented Allergic/Immunologic Allergic/Immunologic: Reports systems reviewed and no addt'l complaints, except as documented Vital Signs Vital Signs Vital Signs: 07/13/23 07:24 07/13/23 07:24 07/13/23 07:27 Temperature Temperature Source Temporal Pulse Rate 88 Respiratory Rate Blood Pressure 149/88 H BP Systolic 149 BP Diastolic 88 07/13/23 07:27 07/13/23 07:27 07/13/23 08:32 Temperature 98.7 F Temperature Source Pulse Rate Respiratory Rate 18 Blood Pressure 138/65 H BP Systolic 138 BP Diastolic 65 07/13/23 08:32 07/13/23 08:32 07/13/23 08:32 Temperature Temperature Source Temporal Pulse Rate 89 Respiratory Rate 16 Blood Pressure BP Systolic BP Diastolic 07/13/23 08:32 Temperature 99.7 F H Temperature Source Pulse Rate Respiratory Rate Blood Pressure BP Systolic BP Diastolic Weight Weight: 263 lb 4 oz Body Mass Index (BMI) 43.8 Physical Exam Const alert and oriented x3 General Appearance: cooperative Orientation / Consciousness: awake, oriented to person, oriented to place and oriented to time Exam Limitations: no limitations HEENT normocephalic Head and Scalp: normal to inspection, normocephalic and atraumatic Face and Sinus: normal facial exam Eyes General Eye: normal appearance of both eyes Neck full ROM Chest Chest: symmetrical chest wall rise Resp normal respiratory effort and normal air movement Auscultation: clear to auscultation bilaterally Cardio regular rate, regular rhythm, S1 normal heart sound, S2 normal heart sound, no murmurs, no rub, no gallops and no clicks GI normal to inspection, nondistended, normoactive bowel sounds and non-tender appearance of the vagina normal Bladder / Kidney Exam: no CVA tenderness Back/Spine normal ROM Extremity normal to inspection and full ROM Skin no rashes or lesions noted Neuro oriented x3 and moves all extremities Sensorium / Orientation: awake, alert and oriented to person Motor Exam: clonus absent Deep Tendon Reflexes: Rt Patellar (L4): 2+ and Lt Patellar (L4): 2+ Labs Labs Labs: Blood Type O POSITIVE Antibody Screen NEGATIVE Hct 33.7 % (37-47) L Hgb 10.4 g/dL (12.0-15.0) L Obstetrics Ultrasound Syphilis Total Ab Non-reactive VZV IgG Antibody 787 index (Immune >165) Rubella IgG Antibody Reactive (Nonreactive) Hep Bs Antigen Non-Reactive (Nonreactive) Hepatitis C Antibody Non-Reactive (Nonreactive) Hepatitis C Ab (EIA) Non Reactive (Non Reactive) Chlamydia DNA (SEBASTIEN) Negative (Negative) N.gonorrhoeae DNA (SEBASTIEN) Negative (Negative) HIV 1&2 Antibody Non-Reactive (Nonreactive) Rhogam given: No Assessment & Plan (1) Encounter for induction of labor: (2) Obesity affecting : PLAN: Plan 1) Admit to labor and delivery 2) Routine labs 3) Continuous EFM 4) Pitocin per policy 5) Desires unmedicated , positional changes. 6) collaborative physician and notified of patient status, above assessment and plan.
[2023-07-13] MEDS: Oxytocin 15 Units/NS 250ml 15 UNITS/250 ML IV.SOLN 83 UNITS IV (13:25)
--- NOTE | 2023-07-13 13:33 | EX.PCM.OBRPT ---
Assessment & Plan (1) Vaginal delivery: (2) Lactating mother: Maternal Data Information ERICA Calculator Estimated Delivery Date Method Current WG Current Estimate 07/18/23 Manual 39w 3d Final ERICA: 07/11/23 Vaginal Delivery Maternal Presentation Maternal Presentation: Medically Indicated Induction (obesity) Type of Induction: Pitocin Operative Information Date of Procedure: 07/13/23 Pre-Operative Diagnosis: Induction of Labor, Obesity, 39 weeks gestation Post-Operative Diagnosis: Surgery / Procedure Performed: Spontaneous Vaginal Delivery Type of Anesthesia: None Estimated Blood Loss: 300ml Time of Delivery: 13:21 Findings Description of Procedure: Progressed to rapidly from 7-9cm and then complete with urge to push. Precipitous delivery, caught by EMILY Roberts, arrived shortly after delivered. of viable female over intact perineum. APGARS 8,9 respectively. Placed on maternal abdomen, strong cry. Mouth and nares suctioned for secretions. Pitocin started for active 3rd stage management. Cord doubly clamped and cut by FOB after pulsations ceased, delayed cord clamping. Placenta delivered intact via reid, 3 vessel cord intact. Perineum inspected and revealed intact Fundus firm and hemostasis achieved. EBL 300ml. Mom and baby stable, planning to breastfeed. Family bonding well. notified of delivery. Presentation: Vertex Amniotic Membrane Rupture Type: Spontaneous Amniotic Fluid Description: Clear Placental Delivery Description: Spontaneous Placenta Disposition: [facility] Cord Vessel Description: 3 Vessels Cord Entanglement: None Infant A Gender: Female (1 minute): 8 (5 minute): 9 Delayed Cord Clamping: Yes Post Vaginal Delivery Medications Given After Delivery: IV Pitocin and IM Pitocin Episiotomy Description: None Laceration: None Complication Complications: None
[2023-07-13] MEDS: Ibuprofen 600 MG Tablet PO ×2 (15:42→23:22)
[2023-07-14 00:37] VITALS: BP 119/69; PULSE 76; RESP 16; TEMP 36.9; O2SAT 98
[2023-07-14] MEDS: Acetaminophen 500 MG Tablet 1000 MG PO (02:37)
[2023-07-14 04:30] VITALS: BP 122/61; PULSE 73; RESP 16; TEMP 36.6; O2SAT 95
[2023-07-14] MEDS: Ibuprofen 600 MG Tablet PO (05:38)
[2023-07-14 05:57] LABS: Absolute Lymphocyte Count 3.68 X10^3/uL (0.83-4.51); Absolute Neutrophil Count 8.2 X10^3/uL (2.0-7.7); Basophil# 0.07 X10^3/uL; Basophil% 0.5 % (0-1); Eosinophil# 0.11 X10^3/uL; Eosinophils% 0.9 % (0-5); Hematocrit 33.7 % (37-47); Hemoglobin 10.4 g/dL (12.0-15.0); Lymphocyte # 3.68 X10^3/ul (0.83-4.51); Lymphocyte % 28.6 % (19-41); Mean Corp Hgb Conc 30.9 g/dL (32-36); Mean Corpuscular Hgb 22.8 pg (27.0-32.0); Mean Corpuscular Volume 73.7 fL (81-99); Mean Platelet Vol. 10.6 fl (6.2-12.0); Monocyte# 0.71 X10^3/uL; Monocyte% 5.5 % (0-10); NRBC Flagged by Analyzer 0 % (0-5); Neutrophil # 8.22 X10^3/uL (2.7-7.7); Platelet Count 297 K/mm3 (150-450); RBC Distribution Width SD 39.3 fl (35.1-43.9); Red Blood Count 4.57 M/mm3 (4.2-5.4); White Blood Count 12.9 K/mm3 (4.4-11.0)
[2023-07-14 07:15] VITALS: BP 110/65; PULSE 85; RESP 14; TEMP 36.8; O2SAT 99
--- NOTE | 2023-07-14 07:55 | PCM.PROGNOTE ---
Subjective Subjective patient seen at bedside, doing well. Patient reports good pain control. lochia mild. breast feeding well Objective Data Objective Data Vital Signs: Vital Signs Temp Pulse Resp BP Pulse Ox O2 Del Method 98.2 F 85 14 110/65 99 Room Air 07/14/23 07:15 07/14/23 07:15 07/14/23 07:15 07/14/23 07:15 07/14/23 07:15 07/14/23 07:15 Oxygen Delivery Method Room Air Weight: 119.408 kg Body Mass Index (BMI) 43.8 Intake & Output: Intake and Output for Last 24 Hours 07/12/23 07/13/23 07/14/23 23:59 23:59 23:59 Intake Total 856.67 / 856.67 Output Total 500 / 500 Balance 356.67 / 356.67 Lab / Micro Data 07/14/23 05:30 Labs: Laboratory Results - last 24 hr 07/13/23 07:40: WBC 9.6, RBC 4.75, Hgb 11.1 L, Hct 34.6 L, MCV 72.8 L, MCH 23.4 L, MCHC 32.1, RDW Std Deviation 38.5, RDW Coeff of Ewa 14.6, Plt Count 263, MPV 10.9, Immature Gran % (Auto) 0.500, Neut % (Auto) 67.6, Lymph % (Auto) 26.4, [place] % (Auto) 4.4, Eos % (Auto) 0.6, Baso % (Auto) 0.5, Absolute Neuts (auto) 6.5, Absolute Lymphs (auto) 2.53, Nucleated RBC % 0, Syphilis Total Ab Non-reactive, Blood Type O POSITIVE, Antibody Screen NEGATIVE 07/14/23 05:30: WBC 12.9 H, RBC 4.57, Hgb 10.4 L, Hct 33.7 L, MCV 73.7 L, MCH 22.8 L, MCHC 30.9 L, RDW Std Deviation 39.3, RDW Coeff of Ewa 15.0 H, Plt Count 297, MPV 10.6, Immature Gran % (Auto) 0.500, Neut % (Auto) 64.0, Lymph % (Auto) 28.6, [place] % (Auto) 5.5, Eos % (Auto) 0.9, Baso % (Auto) 0.5, Absolute Neuts (auto) 8.2 H, Absolute Lymphs (auto) 3.68, Nucleated RBC % 0 Physical Exam Const alert and oriented x3 General Appearance: cooperative HEENT normocephalic Neck General: normal visual inspection GI soft to palpation and non-distended GI Narrative: Fundus firm Extremity normal to inspection and no calf tenderness Skin no rashes or lesions noted Neuro oriented x3 and CN's II-XII intact bilaterally Psych mental status grossly normal Assessment & Plan Assessment/Plan (1) Vaginal delivery: PLAN: Plan PPD# 1 , Doing well Routine care pain mgmt ambulation dc home today per patient request
--- NOTE | 2023-07-14 07:55 | DCINST_ITS ---
Discharge Instructions Diet Discharge Diet: No restrictions Activity May resume sexual activity in: 6-8 weeks Dressing / Incision Call your doctor if you observe: Fever of 101 or Higher, Inability to urinate, Using more than 1 pad per hour and Uncontrolled pain Follow Up Care Please Follow Up With: Anna Red MD When: 1-2 weeks post and again at 6 weeks post . [phone] Test Results: Test results from this visit will be discussed in further detail at your follow- up appointment, if applicable. Discharge Plan Admission Admit Date/Time: 07/13/23 07:05 Attending Provider: Emy Cohen Primary Care Provider: Julio Mcknight Discharge Orders/Prescriptions Prescriptions: New acetaminophen 500 mg Tablet 1,000 mg PO Q6H PRN PRN (Reason: Pain 1-10 Or Fever) Qty: 0 0RF ibuprofen 600 mg Tablet 600 mg PO Q6H PRN PRN (Reason: Pain Score 1-10) Qty: 0 0RF Continued PNV cmb#95-ferrous fumarate-FA [] 28 mg iron- 800 mcg tablet 1 tab PO DAILY Referrals / Follow Up: Julio Mcknight DO [Primary Care Provider] - Disposition Disposition (needs filled in before D/C Order can be placed): Home, Self Care
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
[2023-07-14 14:28] VITALS: BP 120/68; PULSE 82; RESP 16; TEMP 37.2; O2SAT 99
== END 2023-07-14 17:05 | disposition home or self-care (01) | DRG 560 ==
PROVIDERS: Admitting Provider Advanced Practice Midwife; PCP Student in an Organized Health Care Education/Training Program; Visit Provider Advanced Practice Midwife
DX: O99.214 Obesity complicating childbirth (principal); Z37.0 Single live birth; O62.3 Precipitate labor; Z3A.39 39 weeks gestation of pregnancy
CPT/HCPCS: 59025; 59050; 85025; 86780; 86850; 86900; 86901; 99221; J7120; G0378